=== PATIENT | male | born 1930 | race Caucasian/White ===

== ENCOUNTER 2016-11-11 06:57 | Day surgery (SDC) | payer MEDICARE, OTHER ==
[~2016-11-11] VITALS: Ht 185.4 cm; Wt 122.0 kg
[2016-11-11] VITALS (11 sets, daily range): BP systolic 120–146; BP diastolic 81–98
[~2016-11-11 06:57] MED LIST: ASCO500T20 PO; ASP325T PO; ASP325TEC PO; ASP81CT; BRIM5DRO12 OU; CA C1TAB26 PO; CHOL100011; CHOL100011 PO; CLOP75TA PO; CPR500T PO; FINA5TAB PO; FLUO20CA25 PO; FLUO20CA42; FLUO20TA28 PO; FNST5T PO; FURO40TA4 PO; FURO80TA3 PO; HYDR-757 PO; HYDR12.56; HYDR1TAB66 PO; INSU100V5 SC; INSULIN SQ; IPRA3AMP19 IH; LEVO500T69 PO; METF-380 PO; MTF500T; MTP25TSR; MTP25TSR PO; NTR.4SL SL; PNT40TEC PO; RAMI2.5C PO; RAMI5CAP PO; RMP5C PO; ROSU5TAB; ROSU5TAB PO; SITA100T PO; SPIR50TA27 PO; TAMS0.4C2 PO; TMSL.4C PO; TRAM-21 PO; [UNRECOGNIZED DRUG - OTHER] OU
[2016-11-11] MEDS ORDERED: LIDOCAINE 1% INJ 20 ML (XYLOCAINE) VIAL ONE (07:01)
--- OUTSIDE RECORDS SUMMARY | 2016-11-11 07:01 | XMS REPORT | Continuity of Care Document ---
Author Author [facility] Organization [facility] Address Unknown Phone Unavailable Care Team Providers Care Knife Glazer Name Role Phone ROXANNA LY MD PCP Insurance Providers Payer Name Policy Number Subscriber Name Relationship Wps Medicare [id number] Alexandra Wilkes 18 Self / Same As Patient Blue Cross [facility] Supp [id number] Alexandra Wilkes 18 Self / Same As Patient Advance Directives Directive Response Recorded Date/Time Advance Directives Yes 09/20/14 11:00am Health Care Power of Manufacturer Yes 09/20/14 11:00am Organ Donor No 09/20/14 11:00am Resuscitation Status Full Code 09/20/14 11:00am Problems No known problems or medical conditions. Medications Medication Dose Route Sig Days/Qty Instructions Order Date Discontinued Date Status Hydrochlorothiazide 02/12/10 01/07/11 Discontinued Rosuvastatin Calcium 02/12/10 01/07/11 Discontinued Fluoxetine HCl 02/12/10 01/07/11 Discontinued Metoprolol Succinate 02/12/10 01/07/11 Discontinued Aspirin 02/12/10 01/07/11 Discontinued Cholecalciferol 02/12/10 01/07/11 Discontinued Metformin HCl (Glucophage) 02/12/10 01/07/11 Discontinued Cholecalciferol 1,000 Unit PO DAILY 01/07/11 Active [Alphagan C.ie] 1 Drop OU TWICE A DAY One drop in 01/07/11 08/19/11 Discontinued Metformin HCl (Glucophage) 1,000 Mg PO TWICE A DAY WITH MEALS OF 01/07/11 08/26/12 Discontinued Metoprolol Succinate 12.5 Each PO DAILY 01/07/11 09/15/14 Discontinued Nitroglycerin 0.4 Mg SL NEEDED 01/07/11 Active Spironolactone 50 Mg PO DAILY 01/07/11 08/19/11 Discontinued Clopidogrel Bisulfate 75 Mg PO DAILY 01/07/11 Active Furosemide (Lasix) 1 Each PO DAILY 01/07/11 01/30/11 Discontinued Rosuvastatin Calcium 5 Mg PO DAILY 01/07/11 Active Rosuvastatin Calcium 1 Each PO DAILY 01/07/11 01/07/11 Discontinued Fluoxetine HCl (Prozac) 20 Mg PO DAILY 01/07/11 Active Ramipril 5 Mg PO DAILY 01/07/11 08/19/11 Discontinued Pantoprazole Sodium 1 Tab PO DAILY 01/07/11 08/19/11 Discontinued Hydrocodone Bit/Acetaminophen 2 Each PO PRN 01/15/11 08/19/11 Discontinued Tamsulosin HCl 0.4 Mg PO DAILY 30 Qty 01/17/11 08/19/11 Discontinued Finasteride 5 Mg PO DAILY 01/17/11 08/19/11 Discontinued Tamsulosin Hcl 0.4 Mg PO EVENINGS 01/24/11 01/27/11 Discontinued Furosemide (Lasix) 40 Mg PO DAILY 01/30/11 Active Ciprofloxacin 1 Tab PO TWICE A DAY 10 Qty 01/30/11 08/19/11 Discontinued Brimonidine Tartrate 1 Drop OU TWICE A DAY 08/19/11 Active Aspirin 0.5 Tab PO DAILY 08/19/11 03/31/14 Discontinued Sitagliptin Phosphate 1 Each PO DAILY 08/26/12 09/15/14 Discontinued Ramipril 5 Mg PO DAILY 08/26/12 09/15/14 Discontinued Albuterol Sulfate/Ipratropium 3 Ml IH Q 4 HOURS 1 Qty BY NEBULIZER FOR BREATHING 08/26/12 03/31/14 Discontinued Levofloxacin 1 Each PO DAILY 10 Qty 08/26/12 03/31/14 Discontinued Hydrocodone Bit/Acetaminophen 1 Ea PO EVERY 6 HOURS PRN MILD PAIN 14 Qty 03/28/14 09/15/14 Discontinued Insulin Detemir 22 Units SC TWICE A DAY 40 Qty TAKES 22 UNITS IN AM 03/31 Active Ascorbic Acid 500 Mg PO DAILY 09/15/14 Active Ramipril 2.5 Mg PO DAILY 09/15/14 Active Pantoprazole Sod 40 Mg PO DAILY 09/15/14 Active Tramadol Hcl 1 Tab PO EVERY 12 HOURS For Pain 20 Qty EVERY 12 HRS NEEDED FOR 09/20/14 Active Social History Social History Problem Response Recorded Date/Time Alcohol Use Denies Use 03/31/2014 8:58am Recreational Drug Use No 03/31/2014 8:58am Recent Foreign Travel No 09/20/2014 11:00am Sexually Transmitted Disease No 03/31/2014 8:58am Smoking Status Former Smoker 09/20/2014 11:00am Query Response Start Date Stop Date Smoking Status Former Smoker 10/26/1963 Hospital Discharge Instructions No hospital discharge instructions. Plan of Care No plan of care. Functional Status No functional status results. Allergies, Adverse Reactions, Alerts Allergen Type Severity Reaction Status Last Updated Penicillins ([id number]) Allergy Mild Active 03/24/09 Immunizations Name Given Type Date of Pneumonia Vaccine 07/26/11 Historical Date of Influenza Vaccine 08/21/14 Historical Vital Signs Acute Vital Signs Vital Response Date/Time Temperature (Fahrenheit) 97.8 degrees F (97.6 - 99.5) Temperature (Calculated Celsius) 36.22512 degrees C (36.4 - 37.5) Temperature Source Tympanic Pulse Rate (adult) 78 bpm (60 - 90) Respiratory Rate 20 bpm (12 - 24) O2 Sat by Pulse Oximetry 94 % (88 - 100) Blood Pressure 149/78 mm Hg Pain Pain Intensity 0 Height (Feet) 5 feet Height (Inches) 11.00 inches Height (Calculated Centimeters) 180.307063 cm Weight (Pounds) 265 pounds Weight (Calculated Grams) 178765.979 gm Weight (Calculated Kilograms) 120.061703 kilograms Height 5 ft 11 in Weight 265 lb Body Mass Index 37.0 kg/m^2 Results Laboratory Results Test Name Result Units Flags Reference Collection Date/Time Result Date/ Time Comments Glucometer 85 MG/DL 70-110 09/20/2014 12:06pm 09/20/2014 12:27pm Sodium Level 139 MMOL/L 135-145 09/15/2014 10:00am 09/15/2014 11:17am Potassium Level 4.7 MMOL/L 3.6-5.0 09/15/2014 10:00am 09/15/2014 11: 17am Chloride Level 107 MMOL/L 98-107 09/15/2014 10:00am 09/15/2014 11:17am Carbon Dioxide Level 21 MMOL/L 21-32 09/15/2014 10:00am 09/15/2014 11: 17am Blood Urea Nitrogen 16 MG/DL 7-18 09/15/2014 10:00am 09/15/2014 11: 17am Creatinine 1.18 MG/DL 0.60-1.30 09/15/2014 10:00am 09/15/2014 11:17am BUN/Creatinine Ratio 14 09/15/2014 10:00am 09/15/2014 11:17am Estimat Glomerular Filtration Rate 59 09/15/2014 10:00am 2013 11:17am GFR INTERPRETIVE DATA UNITS FOR ESTIMATED GFR (eGFR): mL/min/1.73 M2 REFERENCE RANGE FOR ESTIMATED GFR (eGFR) eGFR NORMAL eGFR >60 MODERATELY DECREASED eGFR 30-59 SEVERLY DECREASED eGFR 15-29 KIDNEY FAILURE <15 (OR DIALYSIS) Glucose Level 197 MG/DL H 70-105 09/15/2014 10:00am 09/15/2014 11:17am Calcium Level 9.5 MG/DL 8.5-10.1 09/15/2014 10:00am 09/15/2014 11:17am Procedures Procedure Status Date Provider(s) Tracing only of electrocardiogram completed 09/15/14 DENIZ VICTOR DO Encounters Encounter Location Date/Time Registered Surgical Day Care Via [facility] 09/20/14 11:02am Registered Clinic [facility] 09/15/14 9:40am
--- OUTSIDE RECORDS SUMMARY | 2016-11-11 07:01 | XMS REPORT | Continuity of Care Document ---
Author Author [facility] Organization [facility] Address Unknown Phone Unavailable Care Team Providers Care Drop Wirer Name Role Phone ROXANNA LY MD PCP Insurance Providers Payer Name Policy Number Subscriber Name Relationship Wps Medicare [id number] Alexandra Wilkes 18 Self / Same As Patient Blue Cross [facility] Supp [id number] Alexandra Wilkes 18 Self / Same As Patient Advance Directives Directive Response Recorded Date/Time Advance Directives Yes 09/20/14 11:00am Health Care Power of Bottom Filler Yes 09/20/14 11:00am Organ Donor No 09/20/14 [...] Type Severity Reaction Status Last Updated Penicillins ([id number]) Allergy Mild Active 03/24/09 Immunizations Name Given Type Date of Pneumonia Vaccine 07/26/11 Historical Date of Influenza Vaccine 08/21/14 Historical Vital Signs Acute Vital Signs Vital Response Date/Time Temperature (Fahrenheit) 97.8 degrees F (97.6 - 99.5) Temperature (Calculated Celsius) 36.09769 degrees C (36.4 - 37.5) Temperature Source Tympanic Pulse Rate (adult) 78 bpm (60 - 90) Respiratory Rate 20 bpm (12 - 24) O2 Sat by Pulse Oximetry 94 % (88 - 100) Blood Pressure 149/78 mm Hg Pain Pain Intensity 0 Height (Feet) 5 feet Height (Inches) 11.00 inches Height (Calculated Centimeters) 180.425170 cm Weight (Pounds) 265 pounds Weight (Calculated Grams) 713891.979 gm Weight (Calculated Kilograms) 120.471979 kilograms Height 5 ft 11 in Weight [...] Location Date/Time Registered Surgical Day Care Via [facility] 09/20/14 11:02am Registered Clinic Via [facility] 09/15/14 9:40am
[2016-11-11] MEDS ORDERED: NS IV 1000 ML 1,000 ML ONE (07:02)
[2016-11-11] MEDS ORDERED: HEParin (CATH LAB) 1,000 ML IV ONE ×2 (07:02→08:43)
[2016-11-11 07:45] LABS: MEAN PLATELET VOLUME 9.4 FL (7.4-10.4); RED BLOOD COUNT 4.65 10^6/uL (4.35-5.85); RED CELL DISTRIBUTION WIDTH 13.2 % (10.0-14.5); WHITE BLOOD COUNT 5.8 10^3/uL (4.3-11.0)
[2016-11-11] MEDS ORDERED: NS IV 1000 ML 1,000 ML IV SCH ×2 (07:45→09:27)
[2016-11-11 07:56] LABS: PROTHROMBIN TIME PATIENT 12.9 SEC (12.2-14.7)
[2016-11-11 08:08] LABS: ALANINE AMINOTRANSFERASE 18 U/L (0-55); ANION GAP 10 MMOL/L (5-14); ASPARTATE AMINO TRANSFERASE 17 U/L (5-34); BILIRUBIN,TOTAL 0.9 MG/DL (0.1-1.0); BLOOD UREA NITROGEN 17 MG/DL (7-18); BUN/CREATININE RATIO 15; CALCIUM 9.7 MG/DL (8.5-10.1); CARBON DIOXIDE 21 MMOL/L (21-32); CHLORIDE 106 MMOL/L (98-107); CHOLESTEROL 141 MG/DL (< 200); CREATININE SERUM 1.11 MG/DL (0.60-1.30); DIRECT LDL 93 MG/DL (1-129); GFR ESTIMATED > 60; GLUCOSE 165 MG/DL (70-105); POTASSIUM 4.4 MMOL/L (3.6-5.0); SODIUM 137 MMOL/L (135-145); TOTAL PROTEIN 6.4 G/DL (6.4-8.2); TRIGLYCERIDES 111 MG/DL (<150); VLDL CHOLESTEROL 22 MG/DL (5-40)
[2016-11-11] MEDS ORDERED: fentaNYL INJECTION 100 MCG/2 ML AMP ONE (08:21)
[2016-11-11] MEDS ORDERED: diphenhydrAMINE 50 MG/ML INJ (BENADRYL) ONE (08:21)
[2016-11-11] MEDS ORDERED: MIDAZOLAM 5 MG/5 ML (VERSED) VIAL ONE (08:21)
[2016-11-11] MEDS ORDERED: MELO7.5T46 PO (08:23)
--- NOTE | 2016-11-11 09:27 | Cardiac Procedure Note-CS/ASA ---
Pre-Procedure Note Pre-Op Procedure Note H&P Reviewed The H&P was reviewed, patient examined and no changes noted. Date H&P Reviewed: Nov 11, 2016 Time H&P Reviewed: 08:50 Conscious Sedation Pre-Proced Time Reviewed: 08:50 ASA Class: 3 Airway Mallampati Classification: (habematolel appropriate class) I. II. III, IV Lungs Heart ASA score ASA 1: a normal healthy patient ASA 2: a patient with a mild systemic disease (mid diabetes, controlled hypertension, obesity ASA 3: a patient with a severe systemic disease that limits activity (angina , COPD, prior Myocardial infarction) ASA 4: a patient with an incapacitating disease that is a constant threat to life (CHF, renal failure) ASA 5: a moribund patient not expected to survive 24 hrs. (ruptured aneurysm) ASA 6: a declared brain patient whose organs are being harvested. For emergent operations, add the letter E after the classification Grade 3 Sedation Plan: Analgesia, Amnesia, Plan communicated to team members, Discussed options with patient/fam, Discussed risks with patient/fam Note The patient is an appropriate candidate to undergo the planned procedure, sedation, and anesthesia. The patient immediately re-assessed prior to indication. DELLA NUR MD FACP [facility] Nov 11, 2016 09:26
[2016-11-11] MEDS ORDERED: PATIENT MAY USE OWN MEDS, ALL PO SCH (09:30)
[2016-11-11] MEDS ORDERED: ASPI-999 PO (09:30)
--- NOTE | 2016-11-11 09:32 | Discharge Inst-Post CATH ---
Discharge Inst-CATH Post Cardiac Cath D/C Inst Follow Up/Plan Follow up with Dr Pineda in 1-2 weeks Obtain blood work prior to f/u with Dr Pineda F/u with family physician as soon as possible for treatment of diabetes CARDIAC CATH DISCHARGE INSTRUCTIONS *Hold Metformin for 48 hours post heart cath. ACTIVITY * Go Home directly and rest. * Limit activity of the leg (or wrist if it was used) for 7 days including aerobics, swimming, jogging, bicycling, etc. * Restrict stair-climbing for 7 days if possible, if not, climb up with your non -cath leg, then bring together on the same step. * Avoid lifting, pushing, pulling or excessive movement of the affected extremity for 7 days. * Customary sexual activity may be resumed after 2 days-use caution not to use a position that strains or causes pain to the affected extremity. * No driving for 24 hours. * NO SMOKING. * Avoid straining for bowel movements for 7 days. * Gentle walking on level ground is allowed. * Returning to work will depend on the type of procedure and the results. Your doctor will discuss this with you. CALL YOUR DOCTOR FOR ANY OF THE FOLLOWING: *If bleeding from the puncture site occurs- Apply gentle pressure to site with clean cloth and call your doctor or EMS. * If a knot or lump forms under the skin, increases in size, or causes pain. * If bruising appears to be worsening or moving further down your leg instead of disappearing. * Temperature above 101 F. CARE OF YOUR GROIN INCISION; * Bruising or purple discoloration of the skin near the puncture site is common. * You may shower only, no bathtub bathing for 5 days. Be careful to avoid slipping as your leg may feel stiff. * If a closure device was used on your femoral artery, please see the attached guide regarding care of the device and your leg. * REMOVE the dressing from your groin the next day after your procedure in the shower. CARE OF YOUR WRIST INCISION; * Bruising or purple discoloration of the skin near the puncture site is common. * You may shower. * DO NOT submerge wrist. * Remove dressing in 24 hours. DELLA PINEDA MD FACP [facility] Nov 11, 2016 09:32
[2016-11-11] MEDS ORDERED: PRAV20TA PO (09:38)
--- NOTE | 2016-11-11 09:38 | Discharge Inst-Cardiology ---
Discharge Inst-Cardiac Discharge Medications New Medications: Aspirin (Aspirin) 81 Mg Tab.chew 81 MG PO DAILY #90 Ref 5 TAB Pravastatin Sodium (Pravachol) 20 Mg Tablet 20 MG PO DAILY #90 Ref 3 TAB Continued Medications: Ascorbic Acid (Vitamin C 500 Mg) 500 Mg Tablet 500 MG PO DAILY TAB Brimonidine Tartrate (Alphagan P) 10 Ml Drops 1 DROP OU BID one drop both eyes bid Cholecalciferol (Vitamin D3) 1,000 Unit Capsule 1000 UNIT PO DAILY Fluoxetine HCl (Fluoxetine HCl) 20 Mg Tablet 40 MG PO DAILY TAB Furosemide (Furosemide) 40 Mg Tablet 40 MG PO DAILY Meloxicam (Meloxicam) 7.5 Mg Tablet 7.5 MG PO BID TAB Nitroglycerin (Nitrostat) 0.4 Mg Subl 0.4 MG SL PRN Ramipril (Ramipril) 2.5 Mg Capsule 2.5 MG PO DAILY DELLA BROOKS MD FACP [facility] Nov 11, 2016 09:38
--- NOTE | 2016-11-11 10:33 | CARDIAC CATHETERIZATION ---
PROCEDURE PHYSICIAN: DELLA NUR DATE OF PROCEDURE: 11/11/2016 Jeremiah John is an 86-year-old man who has known coronary artery disease and ischemic cardiomyopathy. He has been experiencing increasing symptoms of chest discomfort and exertional shortness of breath suggestive of recurrent angina pectoris. Cardiac catheterization was carried out today after having obtained an informed consent. PROCEDURE: The right groin was prepared and draped in the usual sterile fashion. 1% lidocaine was used for local anesthesia. Modified Seldinger technique was used to advance a 5-Anguillan sheath in right femoral artery. We were not able to engage the left coronary artery with the 5-Anguillan JL4 or JL3.5 catheters. We exchanged the sheath over a wire for a 6-Anguillan sheath. We used a 6 Anguillan JL4 catheter for left coronary angiography and 6-Anguillan JR4 catheter for the right coronary angiography. We used a 5-Anguillan pigtail catheter for left heart catheterization and left ventricular angiography. The pigtail catheter was pulled back and then removed. Angiography of the right femoral artery was carried out through the sheath. Mynx was used to achieve hemostasis. He tolerated the procedure well. HEMODYNAMICS: Left ventricular end diastolic pressure following coronary angiography was 11 mmHg. There was no significant pressure gradient on pullback across the aortic valve. Ascending aortic pressure was 144/73 with a mean of 102 mmHg. LEFT VENTRICULAR ANGIOGRAPHY: Left ventricular angiography was carried out in the right anterior oblique projection. There is anterolateral apical hypokinesis. Left ventricular ejection fraction of 40 to 45%. There did not appear to be significant mitral regurgitation. CORONARY ANGIOGRAPHY: Diffuse coronary calcification is present. The left main coronary does not exhibit significant obstructive disease. The left anterior descending artery has diffuse moderate disease. The left circumflex artery has 60% ostial stenosis and the rest of the vessel has diffuse, mild disease. Right coronary artery has diffuse, moderate disease. There are patent stents in the proximal mid and distal portions of the right coronary artery that do not exhibit any significant stent restenosis. CONCLUSIONS: 1. Coronary artery disease, moderate. There are patent stents in the right coronary artery that are known to be Promus 3 x 12 in the proximal, proximal 3 x 12 in the mid and Promus 2.5 x 23 in the distal right coronary artery. 2. Ischemic cardiomyopathy with left ventricular ejection fraction 40 to 45%. 3. Normal left ventricular end-diastolic pressure. 4. No significant mitral regurgitation. DISCUSSION AND RECOMMENDATIONS: Based on the results of this study, it appears appropriate to continue a conservative treatment approach. Close outpatient follow-up is advised. Job ID: [id number] Dictated Date: 11/11/2016 09:24:16 Cordage Sales Representative Date: 11/11/2016 10:19:50 / sarah BATISTA
--- NOTE | 2016-11-11 13:23 | Diagnostic Imaging Report ---
INDICATION: Dyspnea following heart catheterization this morning. DISCUSSION: Two views of the chest were obtained, comparison 08/26/2012. The lungs are hyperinflated consistent with underlying COPD. No focal consolidation, pleural fluid, or pneumothorax. Left-sided pacemaker shows interval revision though is otherwise unremarkable. Stable normal heart size. IMPRESSION: 1. No acute cardiopulmonary process. Dictated by: Dictated on workstation # [id number]
== END 2016-11-11 14:15 | disposition home or self-care (01) ==
LOC: CATH 06:57 → SURG 09:47 → CATH 14:15
PROVIDERS: ATTEND Internal Medicine Cardiovascular Disease
DX: I25.10 Atherosclerotic heart disease of native coronary artery without angina pectoris (principal); I25.84 Coronary atherosclerosis due to calcified coronary lesion; I25.5 Ischemic cardiomyopathy; R07.89 Other chest pain; R06.02 Shortness of breath; I50.22 Chronic systolic (congestive) heart failure; I10 Essential (primary) hypertension; E78.5 Hyperlipidemia, unspecified; E66.9 Obesity, unspecified; R73.09 Other abnormal glucose; I49.5 Sick sinus syndrome; Z95.5 Presence of coronary angioplasty implant and graft; Z95.810 Presence of automatic (implantable) cardiac defibrillator; Z79.899 Other long term (current) drug therapy; Z68.35 Body mass index [BMI] 35.0-35.9, adult
CPT/HCPCS: 36415; 71020; 80053; 80061; 82962; 85027; 85610; 85730; 87081; 93458

== ENCOUNTER → 2016-11-18 | Outpatient (CLI) | payer MEDICARE, OTHER ==
[~2016-11-18] MED LIST changes: +ASPI-999 PO; +MELO7.5T46 PO; +PRAV20TA PO
--- OUTSIDE RECORDS SUMMARY | 2016-11-18 10:21 | XMS REPORT | Continuity of Care Document ---
Author Author [facility] Organization [facility] Address Unknown Phone Unavailable Care Team Providers Care Cold Meat Cook Name Role Phone ROXANNA LY MD PCP Insurance Providers Payer Name Policy Number Subscriber Name Relationship Wps Medicare [id number] Alexandra Wilkes 18 Self / Same As Patient Blue Cross [facility] Supp [id number] Alexandra Wilkes 17 Self / Same As Patient Advance Directives Directive Response Recorded Date/Time Advance Directives Yes 09/20/14 11:00am Health Care Power of Steward/Stewardess Bath Yes 09/20/14 11:00am Organ Donor No 09/20/14 [...] Type Severity Reaction Status Last Updated Penicillins ([id number]) Allergy Mild Active 03/24/09 Immunizations Name Given Type Date of Pneumonia Vaccine 07/26/11 Historical Date of Influenza Vaccine 08/21/14 Historical Vital Signs Acute Vital Signs Vital Response Date/Time Temperature (Fahrenheit) 97.8 degrees F (97.6 - 99.5) Temperature (Calculated Celsius) 36.96755 degrees C (36.4 - 37.5) Temperature Source Tympanic Pulse Rate (adult) 78 bpm (60 - 90) Respiratory Rate 20 bpm (12 - 24) O2 Sat by Pulse Oximetry 94 % (88 - 100) Blood Pressure 149/78 mm Hg Pain Pain Intensity 0 Height (Feet) 5 feet Height (Inches) 11.00 inches Height (Calculated Centimeters) 180.601793 cm Weight (Pounds) 265 pounds Weight (Calculated Grams) 539834.979 gm Weight (Calculated Kilograms) 120.142503 kilograms Height 5 ft 11 in Weight [...] Location Date/Time Registered Surgical Day Care Via [facility] 09/20/14 11:02am Registered Clinic [facility] 09/15/14 9:40am
[2016-11-18 10:49] LABS: ALANINE AMINOTRANSFERASE 16 U/L (0-55); ALBUMIN 3.8 G/DL (3.2-4.5); ANION GAP 7 MMOL/L (5-14); ASPARTATE AMINO TRANSFERASE 16 U/L (5-34); BILIRUBIN,TOTAL 0.8 MG/DL (0.1-1.0); BLOOD UREA NITROGEN 11 MG/DL (7-18); BUN/CREATININE RATIO 10; CALCIUM 9.5 MG/DL (8.5-10.1); CARBON DIOXIDE 26 MMOL/L (21-32); CHLORIDE 105 MMOL/L (98-107); CHOLESTEROL 137 MG/DL (< 200); CREATININE SERUM 1.08 MG/DL (0.60-1.30); DIRECT LDL 89 MG/DL (1-129); GFR ESTIMATED > 60; GLUCOSE 176 MG/DL (70-105); POTASSIUM 4.3 MMOL/L (3.6-5.0); SODIUM 138 MMOL/L (135-145); TRIGLYCERIDES 125 MG/DL (<150); VLDL CHOLESTEROL 25 MG/DL (5-40)
== END ==
LOC: LAB 10:16
PROVIDERS: ATTEND Internal Medicine Cardiovascular Disease
DX: E78.5 Hyperlipidemia, unspecified (principal); I25.5 Ischemic cardiomyopathy; I25.10 Atherosclerotic heart disease of native coronary artery without angina pectoris
CPT/HCPCS: 36415; 80053; 80061

== ENCOUNTER → 2016-11-25 | Outpatient (CLI) | payer MEDICARE, OTHER ==
--- OUTSIDE RECORDS SUMMARY | 2016-11-25 09:35 | XMS REPORT | Continuity of Care Document ---
Author Author [facility] Organization [facility] Address Unknown Phone Unavailable Care Team Providers Care Spray Drier Operator Name Role Phone ROXANNA LY MD PCP Insurance Providers Payer Name Policy Number Subscriber Name Relationship Wps Medicare [id number] Alexandra Wilkes 18 Self / Same As Patient Blue Cross [facility] Supp [id number] Alexandra Wilkes 17 Self / Same As Patient Advance Directives Directive Response Recorded Date/Time Advance Directives Yes 09/20/14 11:00am Health Care Power of Manager Registration Yes 09/20/14 11:00am Organ Donor No 09/20/14 [...] Type Severity Reaction Status Last Updated Penicillins ([id number]) Allergy Mild Active 03/24/09 Immunizations Name Given Type Date of Pneumonia Vaccine 07/26/11 Historical Date of Influenza Vaccine 08/21/14 Historical Vital Signs Acute Vital Signs Vital Response Date/Time Temperature (Fahrenheit) 97.8 degrees F (97.6 - 99.5) Temperature (Calculated Celsius) 36.59676 degrees C (36.4 - 37.5) Temperature Source Tympanic Pulse Rate (adult) 78 bpm (60 - 90) Respiratory Rate 20 bpm (12 - 24) O2 Sat by Pulse Oximetry 94 % (88 - 100) Blood Pressure 149/78 mm Hg Pain Pain Intensity 0 Height (Feet) 5 feet Height (Inches) 11.00 inches Height (Calculated Centimeters) 180.060717 cm Weight (Pounds) 265 pounds Weight (Calculated Grams) 310950.979 gm Weight (Calculated Kilograms) 120.827360 kilograms Height 5 ft 11 in Weight [...] Location Date/Time Registered Surgical Day Care Via [facility] 09/20/14 11:02am Registered Clinic [facility] 09/15/14 9:40am
--- NOTE | 2016-11-25 10:29 | Diagnostic Imaging Report ---
EXAMINATION: Right lower extremity duplex venous ultrasound. TECHNIQUE: DVT protocol. Multiple sonographic images with color Doppler and waveform interrogation were performed of the right lower extremity veins with compression and augmentation maneuvers. INDICATION: Right leg swelling. FINDINGS: The right lower extremity veins from the groin to below the knee veins were examined with normal color-flow, compressibility and normal waveform demonstrated. The great saphenous vein is patent. IMPRESSION: No evidence of DVT in the right lower extremity. Dictated by: Dictated on workstation # [id number]
== END ==
LOC: RAD 09:31
PROVIDERS: ATTEND Internal Medicine
DX: R22.41 Localized swelling, mass and lump, right lower limb (principal); R06.02 Shortness of breath

== ENCOUNTER → 2016-12-01 | Outpatient (CLI) | payer MEDICARE, OTHER ==
--- OUTSIDE RECORDS SUMMARY | 2016-12-01 13:57 | XMS REPORT | Continuity of Care Document ---
Author Author [facility] Organization [facility] Address Unknown Phone Unavailable Care Team Providers Care Astronautical Engineer Name Role Phone ROXANNA LY MD PCP Insurance Providers Payer Name Policy Number Subscriber Name Relationship Wps Medicare [id number] Alexandra Wilkes 17 Self / Same As Patient Blue Cross [facility] Supp [id number] Alexandra Wilkes 17 Self / Same As Patient Advance Directives Directive Response Recorded Date/Time Advance Directives Yes 09/20/14 11:00am Health Care Power of Ice Cream Freezer Helper Yes 09/20/14 11:00am Organ Donor No 09/20/14 [...] Type Severity Reaction Status Last Updated Penicillins ([id number]) Allergy Mild Active 03/24/09 Immunizations Name Given Type Date of Pneumonia Vaccine 07/26/11 Historical Date of Influenza Vaccine 08/21/14 Historical Vital Signs Acute Vital Signs Vital Response Date/Time Temperature (Fahrenheit) 97.8 degrees F (97.6 - 99.5) Temperature (Calculated Celsius) 36.59299 degrees C (36.4 - 37.5) Temperature Source Tympanic Pulse Rate (adult) 78 bpm (60 - 90) Respiratory Rate 20 bpm (12 - 24) O2 Sat by Pulse Oximetry 94 % (88 - 100) Blood Pressure 149/78 mm Hg Pain Pain Intensity 0 Height (Feet) 5 feet Height (Inches) 11.00 inches Height (Calculated Centimeters) 180.366265 cm Weight (Pounds) 265 pounds Weight (Calculated Grams) 083504.979 gm Weight (Calculated Kilograms) 120.644345 kilograms Height 5 ft 11 in Weight [...] Surgical Day Care [facility] 09/20/14 11:02am Registered Clinic [facility] 09/15/14 9:40am
== END ==
LOC: RT 13:54
PROVIDERS: ATTEND Internal Medicine Cardiovascular Disease
DX: I25.10 Atherosclerotic heart disease of native coronary artery without angina pectoris (principal); I10 Essential (primary) hypertension; I25.5 Ischemic cardiomyopathy; I48.92 Unspecified atrial flutter; I49.5 Sick sinus syndrome; E11.9 Type 2 diabetes mellitus without complications; E78.4 Other hyperlipidemia
CPT/HCPCS: 94060; 94726; 94729

== ENCOUNTER → 2016-12-10 | Outpatient (CLI) | payer MEDICARE, OTHER ==
--- OUTSIDE RECORDS SUMMARY | 2016-12-10 14:02 | XMS REPORT | Continuity of Care Document ---
Author Author [facility] Organization [facility] Address Unknown Phone Unavailable Care Team Providers Care Fish Protector Name Role Phone ROXANNA LY MD PCP Insurance Providers Payer Name Policy Number Subscriber Name Relationship Wps Medicare [id number] Alexandra Wilkes 17 Self / Same As Patient Blue Cross [facility] Supp [id number] Alexandra Wilkes 17 Self / Same As Patient Advance Directives Directive Response Recorded Date/Time Advance Directives Yes 09/20/14 11:00am Health Care Power of Junior Engineer Yes 09/20/14 11:00am Organ Donor No 09/20/14 [...] Type Severity Reaction Status Last Updated Penicillins ([id number]) Allergy Mild Active 03/24/09 Immunizations Name Given Type Date of Pneumonia Vaccine 07/26/11 Historical Date of Influenza Vaccine 08/21/14 Historical Vital Signs Acute Vital Signs Vital Response Date/Time Temperature (Fahrenheit) 97.8 degrees F (97.6 - 99.5) Temperature (Calculated Celsius) 36.09828 degrees C (36.4 - 37.5) Temperature Source Tympanic Pulse Rate (adult) 78 bpm (60 - 90) Respiratory Rate 20 bpm (12 - 24) O2 Sat by Pulse Oximetry 94 % (88 - 100) Blood Pressure 149/78 mm Hg Pain Pain Intensity 0 Height (Feet) 5 feet Height (Inches) 11.00 inches Height (Calculated Centimeters) 180.616457 cm Weight (Pounds) 265 pounds Weight (Calculated Grams) 245034.979 gm Weight (Calculated Kilograms) 120.353828 kilograms Height 5 ft 11 in Weight [...] Location Date/Time Registered Surgical Day Care [facility] 09/20/14 11:02am Registered Clinic [facility] 09/15/14 9:40am
--- NOTE | 2016-12-10 16:04 | Diagnostic Imaging Report ---
Scrotal ultrasound. INDICATION: Left scrotal pain. FINDINGS: The right testicle is 4.5 x 2.8 x 3 cm. The left testicle is 4.8 x 2.3 x 2.9 cm. No intratesticular mass. There is an epididymal cyst on the left side measuring 1.3 cm with simple appearance. There is a moderate hydrocele seen on the right side. Above the testicle on the left side there is a hyperechoic area that appears to accentuate with Valsalva suggestive of a left inguinal hernia with fat extension into the scrotum. IMPRESSION: 1. Moderate right hydrocele. 2. Suggestion of fat-containing left inguinal hernia with mild extension into the scrotum. Correlate clinically and with CT pelvis if needed. Dictated by: Dictated on workstation # [id number]
== END ==
LOC: RAD 13:59
PROVIDERS: ATTEND Urology
DX: N43.3 Hydrocele, unspecified (principal); N45.1 Epididymitis
CPT/HCPCS: 76870

== ENCOUNTER 2017-02-25 14:15 | Outpatient (RCR) | payer MEDICARE, OTHER | END 2017-03-03 13:55 | disposition home or self-care (01) | PROVIDERS: ATTEND Orthopaedic Surgery | DX: M25.551 Pain in right hip (principal); M25.552 Pain in left hip; M54.5 Low back pain ==

== ENCOUNTER 2017-03-20 05:43 | Outpatient (CLI) | payer OTHER ==
[~2017-03-20] VITALS: Ht 177.8 cm; Wt 113.4 kg
[2017-03-20 10:10] VITALS: BP 111/60
[2017-03-20] MEDS ORDERED: INSU100I29 SQ (10:25)
[2017-03-20] MEDS ORDERED: ASPI-586 PO (10:25)
[2017-03-20] MEDS ORDERED: PRAV20TA PO (10:25)
[2017-03-20 10:49] LABS: BASOPHILS % (AUTO) 1 % (0-10); EOSINOPHILS # (AUTO) 0.1 10^3/uL (0.0-0.3); EOSINOPHILS % (AUTO) 1 % (0-10); LYMPHOCYTES # (AUTO) 1.1 X 10^3 (1.0-4.0); LYMPHOCYTES % (AUTO) 20 % (12-44); MEAN CORPUSCULAR HEMOGLOBIN 32 PG (25-34); MEAN CORPUSCULAR HGB CONC 33 G/DL (32-36); MEAN CORPUSCULAR VOLUME 95 FL (80-99); MEAN PLATELET VOLUME 9.4 FL (7.4-10.4); MONOCYTES # (AUTO) 0.5 X 10^3 (0.0-1.0); MONOCYTES % (AUTO) 8 % (0-12); NEUTROPHILS # (AUTO) 4.1 X 10^3 (1.8-7.8); NEUTROPHILS % (AUTO) 71 % (42-75); PLATELET COUNT 155 10^3/uL (130-400); RED BLOOD COUNT 4.45 10^6/uL (4.35-5.85); RED CELL DISTRIBUTION WIDTH 13.1 % (10.0-14.5); WHITE BLOOD COUNT 5.9 10^3/uL (4.3-11.0)
[2017-03-20 11:09] LABS: CALCIUM 9.5 MG/DL (8.5-10.1); CREATININE SERUM 1.17 MG/DL (0.60-1.30); POTASSIUM 4.1 MMOL/L (3.6-5.0)
== END 2017-03-20 10:30 | disposition home or self-care (01) ==
LOC: PREOP 05:43
PROVIDERS: ATTEND Surgery Pediatric Surgery
DX: Z01.812 Encounter for preprocedural laboratory examination (principal); Z11.2 Encounter for screening for other bacterial diseases; K40.90 Unilateral inguinal hernia, without obstruction or gangrene, not specified as recurrent
CPT/HCPCS: 36415; 80048; 85025; 87081

== ENCOUNTER 2017-03-26 08:46 | Day surgery (SDC) | payer OTHER ==
[~2017-03-26] VITALS: Ht 177.8 cm; Wt 113.4 kg
[2017-03-26] VITALS (8 sets, daily range): BP systolic 116–159; BP diastolic 61–92
[~2017-03-26 08:46] MED LIST changes: +ASPI-586 PO; +INSU100I29 SQ
[2017-03-26] MEDS ORDERED: MIDAZOLAM 2 MG/2 ML (VERSED) VIAL IV ONE (09:15)
[2017-03-26] MEDS ORDERED: NS (IVPB) 50 ML ONE (09:20)
[2017-03-26] MEDS ORDERED: CLINDAMYCIN 600 MG/4ML (CLEOCIN) VIAL ONE (09:20)
[2017-03-26] MEDS: LACTATED RINGERS 1,000 ML IV PRN ×2 (09:32→12:57)
[2017-03-26] MEDS ORDERED: CLINDAMYCIN 600 MG/NS 50 ML IVPB IV ONE ×2 (09:45)
--- NOTE | 2017-03-26 10:04 | Progress Note-Pre Operative ---
Pre-Operative Progress Note H&P Reviewed The H&P was reviewed, patient examined and no changes noted. 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
--- NOTE | 2017-03-26 11:04 | Progress Note-Pre Operative ---
Pre-Operative Progress Note H&P Reviewed The H&P was reviewed, patient examined and no changes noted. Date H&P Reviewed: Mar 26, 2017 Time H&P Reviewed: 10:02 Pre-Operative Diagnosis: symptomatic left inguinal hernia KATHRINE SMITH MD Mar 26, 2017 11:04 am
[2017-03-26] MEDS ORDERED: BUP/EPI 0.5% 1:200,000 (SENSORCAINE) 30 ML VIAL ONE (11:32)
[2017-03-26] MEDS ORDERED: MIDAZOLAM 2 MG/2 ML (VERSED) VIAL ONE (12:01)
[2017-03-26] MEDS ORDERED: LIDOCAINE PF 2% 5 ML (XYLOCAINE) VIAL ONE ×2 (12:01→12:52)
[2017-03-26] MEDS ORDERED: proPOfol 200 MG/20 ML (DIPRIVAN) VIAL IV ONE ×2 (12:01→12:52)
[2017-03-26] MEDS ORDERED: fentaNYL INJECTION 100 MCG/2 ML AMP ONE ×2 (12:02→14:03)
[2017-03-26] MEDS ORDERED: ROCURONIUM 50 MG/5 ML (ZEMURON) VIAL IV ONE (12:52)
[2017-03-26] MEDS ORDERED: ONDANSETRON 4 MG/2 ML (SDV) Z0FRAN ONE (12:52)
[2017-03-26] MEDS ORDERED: LACTATED RINGERS 2,000 ML IV ONE (12:52)
--- NOTE | 2017-03-26 13:09 | Progress Note-Post Operative ---
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
[2017-03-26] MEDS ORDERED: meTOprolol 5 MG/5 ML (LOPRESSOR) VIAL ONE ×2 (14:03→14:34)
--- NOTE | 2017-03-26 14:18 | Progress Note-Post Operative ---
Post-Operative Progess Note Surgeon (s)/Flight Communications Specialist (s) Surgeon KATHRINE SMITH MD Flight Communications Specialist: elma granados PSYCHOMETRIST Pre-Operative Diagnosis symptomatic left inguinal hernia Post-Operative Diagnosis symptomatic left direct inguinal hernia Procedure & Operative Findings Date of Procedure 03/26/17 Procedure Performed/Findings laparoscopic left inguinal hernia repair with mesh. Anesthesia Type GET Estimated Blood Loss Estimated blood loss (mL): minimal Specimens/Packing Specimens Removed none KATHRINE SMITH MD Mar 26, 2017 2:18 pm
[2017-03-26] MEDS ORDERED: morphine INJ 10 MG/ML 1ML (SYR OR VIAL) ONE (14:21)
[2017-03-26] MEDS ORDERED: GLYCOPYRROLATE 0.2 MG/ML (ROBINUL) 2 ML VIAL ONE (14:22)
[2017-03-26] MEDS ORDERED: NEOSTIGMINE (BLOXIVERZ ) 1 MG/1ML 10 ML VIAL ONE (14:22)
[2017-03-26] MEDS ORDERED: SEVOFLURANE (ULTANE) 15 ML INHAL SOLN ONE ×3 (14:22→14:28)
[2017-03-26] MEDS ORDERED: morphine INJ 10 MG/ML 1ML (SYR OR VIAL) IVP PRN ×2 (14:30→15:00)
[2017-03-26] MEDS ORDERED: ACETAMINOPHEN 325 MG TABLET/CAPLET (TYLENOL) PO PRN (14:30)
[2017-03-26] MEDS ORDERED: HYDROcodone/APAP 5 MG/325 MG (LORTAB) TAB PO ONE (14:30)
[2017-03-26] MEDS ORDERED: ONDANSETRON 4 MG/2 ML (SDV) Z0FRAN IVP PRN ×2 (14:30→15:00)
[2017-03-26] MEDS ORDERED: HYDR-3730 PO (14:41)
--- NOTE | 2017-03-26 14:41 | Discharge Inst-Surgical ---
D/C Lap Instructions-SARAH New, Converted, or Re-Newed RX: RX on Chart Follow Up Appt in 2 weeks Activity as tolerated No driving for 24 hours No driving while on pain medications Incentive Spirometry use every 2 hours while awake Regular Diet Symptoms to Report: Fever over 101 degree F, Nausea/Vomiting Infection Signs and Symptoms to report: Increased redness, Foul odor of wound, Increased drainage Bathing instructions: May shower Operative Area Clean/Dry; Keep incision clean/dry If any problems/questions: Contact your physician or go to Emergency Room KATRHINE SMIHT MD Mar 26, 2017 2:41 pm
[2017-03-26] MEDS ORDERED: hydrALAZINE (APESOLINE) 20 MG/ML VIAL ONE (14:47)
[2017-03-26] MEDS ORDERED: fentaNYL INJECTION 100 MCG/2 ML AMP IVP PRN (15:00)
[2017-03-26] MEDS ORDERED: hydrALAZINE (APESOLINE) 20 MG/ML VIAL IV ONE (15:15)
[2017-03-26] MEDS ORDERED: FUROSEMIDE 40 MG/4 ML INJ (LASIX) ONE (15:15)
[2017-03-26] MEDS: NS IV 1000 ML 1,000 ML IV SCH (18:00)
[2017-03-26] MEDS ORDERED: inSUlin (REGULAR) HUMAN 1 UNIT/0.01 ML (CHARGE PER UNIT) SC SCH (18:00)
[2017-03-26] MEDS: HYDROcodone/APAP 7.5 MG/325 MG (LORTAB, LORCET PLUS) TABLET PO PRN (19:48)
[2017-03-26] MEDS: inSUlin (REGULAR) HUMAN 1 UNIT/0.01 ML (CHARGE PER UNIT) SC SCH (20:33)
--- NOTE | 2017-03-26 21:17 | OPERATIVE REPORT ---
DATE OF SERVICE: 03/26/2017 ATTENDING PHYSICIAN: Dr. Vidal. PREOPERATIVE DIAGNOSIS: Symptomatic reducible left inguinal hernia. POSTOPERATIVE DIAGNOSIS: Left indirect inguinal hernia. PROCEDURE PERFORMED: Laparoscopic left inguinal hernia repair with mesh. SURGEON: Dr. Jauregui ELECTRONIC SCALE SUBASSEMBLER: Isrrael Ward APRN. ANESTHESIA: General endotracheal. ESTIMATED BLOOD LOSS: Minimal. FINDINGS: Left indirect inguinal hernia with cord lipoma and omentum within the hernia sac. No right inguinal hernia component. DISPOSITION: The patient tolerated the procedure well. INDICATIONS: The patient is an 87-year-old male with a symptomatic testicular mass which has been bothering him for greater than 6 months. He was diagnosed with chronic epididymal cryptorchidism and orchialgia. He was scheduled to undergo a left orchiectomy; however, he was found to have a left inguinal hernia. He was seen in the office and was found to have a left inguinal hernia, which was reducible, however, tender to palpation. We planned surgery in conjunction with urology to have both procedures done under one anesthesia. DESCRIPTION OF PROCEDURE: After Dr. Pearson performed scrotal left orchiectomy, we then proceeded with our portion of the procedure. The abdomen was prepped and draped in standard surgical fashion. The 0.5% Marcaine with epinephrine was then used to anesthetize the overlying skin in the infraumbilical rim. [place]ym[place]-shaped skin incision was then made using a 15 blade. A sharp towel clamp was used to retract the abdominal wall superiorly, and a Veress needle inserted with a low opening pressure of 0 mmHg. The Veress needle removed, and a 5 mm Xcel trocar placed, followed by a 5 mm 45 degree angle laparoscope visualizing the peritoneal cavity. A 4 quadrant abdominal exploration was performed. There was no right inguinal hernia component. There was a left indirect inguinal hernia identified with preperitoneal fat as well as omentum within the hernia sac. After dissection, a cord lipoma was also identified. We then proceeded to place bilateral 5 mm ports under direct visualization after the skin and peritoneal lining were anesthetized using 0.5% Marcaine with epinephrine and a transverse skin incision made using a 15 blade. The patient was then placed in Trendelenburg position. We then proceeded to open the peritoneal lining laterally using the Sonicision. We proceeded more laterally towards the conjoint tendon and inguinal ligament. We then proceeded medially toward John's ligament. We then proceeded with our inferior dissection encompassing the entire hernia sac as well as the inguinal contents, which were already excised through the orchiectomy with visualization of good hemostasis. A medium sized 3D Max polypropylene mesh was then placed through the 10 mm port site. The mesh was then tacked to John's ligament medially and to the conjoint tendon and inguinal ligament laterally. The peritoneal lining was then placed entirely back over the mesh and a few tacks placed to hold it in place. Good hemostasis was observed. The 10 mm port site fascia and peritoneum were then closed under direct visualization using a Obi-Margarita device and 0 Vicryl suture. The abdomen was desufflated and remaining ports removed. All skin incisions were closed using 4-0 Monocryl running subcuticular sutures. Wounds were then cleaned and covered with Dermabond. The patient tolerated the procedure well. We will start IV and oral pain medication as well as a clear liquid diet and advanced an 1800 calorie ADA diet. We will also admit him for observation due to his history of atrial fibrillation, coronary artery disease as well as diabetes and start him on a sliding scale insulin. We will also proceed with continued IV pain as well as nausea medication. Job ID: [id number] DocumentID: [id number] Dictated Date: 03/26/2017 14:40:20 Organ Tuner Electronic Date: 03/26/2017 21:16:30 Dictated By: KATHRINE JAUREGUI MD
[2017-03-27] VITALS (7 sets, daily range): BP systolic 111–141; BP diastolic 64–75
[2017-03-27] MEDS: HYDROcodone/APAP 7.5 MG/325 MG (LORTAB, LORCET PLUS) TABLET PO PRN (00:01)
[2017-03-27] MEDS: inSUlin (REGULAR) HUMAN 1 UNIT/0.01 ML (CHARGE PER UNIT) SC SCH ×2 (06:02→11:39)
[2017-03-27] MEDS: NS IV 1000 ML 1,000 ML IV SCH (06:28)
--- NOTE | 2017-03-27 08:43 | Progress Note-Urology ---
Progress Note-Urology Progress Notes/Assess & Plan Progress/Assessment & Plan doing well, no complaints, no pain, minimal drainage, plan DC drain and patient Final Diagnosis CHRONIC LEFT EPIDIDYMOORCHITIS FEDERICO JON MD Mar 27, 2017 8:43 am
[2017-03-27] MEDS ORDERED: PANTOPRAZOLE 40 MG/10 ML (PROTONIX) VIAL IV SCH (09:00)
--- NOTE | 2017-03-27 09:42 | OPERATIVE REPORT ---
DATE OF SERVICE: 03/26/2017 PREOPERATIVE DIAGNOSIS: Chronic ___ with chronic pain. POSTOPERATIVE DIAGNOSIS: Chronic ___ with chronic pain. OPERATION PERFORMED: Left orchiectomy. SURGEON: Dr. Stanley Jon ANESTHESIA: General. COMPLICATIONS: None. DESCRIPTION OF PROCEDURE: Under satisfactory general anesthesia, the patient in supine position, the genitalia, abdomen and thigh were prepped and draped in usual sterile fashion separately scrotally and then abdominally for the laparoscopic procedure of Dr. Jauregui. An incision was made in the medial aspect of the scrotum and carried through the left scrotal compartment. The appendages were delivered in the wound. There were some chronic adhesions that were released. There was quite a bit of vascularity around this ____ epididymis. I went ahead dissected the spermatic cord and cut it between several ligatures and suture ligatures using 0 chromic to secure hemostasis complete. Hemostasis was indeed complete. There was no bleeding. I elected to leave a drain since the patient is spending the night for observation so I inserted a [place] drain draining the scrotum brought through a separate stab wound in the bottom of the scrotum, secured in position with 2-0 chromic cat gut. The scrotum was closed in 2 layers. The dartos with a running 2-0 chromic catgut and the skin was interrupted with 4-0 Vicryl. Fluff, scrotal support and dressing was applied. The patient tolerated the procedure and anesthesia very well with an estimated blood loss negligible and neither instrument counts correct x 2, and Dr. Jauregui proceeded with his surgery that he will dictate. Job ID: [id number] DocumentID: [id number] Dictated Date: 03/26/2017 13:12:08 Ems Educator Date: 03/26/2017 19:49:24 Dictated By: STANLEY JON MD
--- NOTE | 2017-03-27 12:21 | Consultation-Hospitalist ---
HPI History of Present Illness: HPI/Chief Complaint Mr. López is an 87-year-old white male with known hypertension and coronary artery disease who was well-known to me. He underwent left inguinal laparoscopic hernia repair with mesh and left orchiectomy for chronic pain with findings compatible with suspected chronic epididymitis and secondary orchitis. His surgery was uneventful but he did develop hypertension and the recovery room apparently where he received several doses of hydralazine 20 mg at least 1 dose of IV metoprolol. He otherwise did not appear to be in acute distress and also received some pain medication. He denied any problems with chest discomfort or shortness of breath. He was slightly anxious and does have underlying anxiety with depression. Upon my arrival his last blood pressures in the 130/70 range and he reports that as long as he is not moving he's having minimal discomfort in the left scrotum and groin area. He denies shortness of breath. He has known coronary artery disease and compensated systolic heart failure with ejection fraction 30-40 percent range felt to be due to a combination of ischemic and hypertensive heart disease. He has history of sick sinus syndrome and is status post pacemaker placement. Several years ago. He has no known history of thromboembolic disease. Date Seen 03/27/17 Attending Physician Elaine Jauregui MD PCP Parminder Ly MD Referring Physician Date of Admission Home Medications & Allergies Home Medications Reviewed patient Home Medication Reconciliation Form Allergies Allergies Coded Allergies Penicillins (Verified Allergy, Mild, 11/23/15) Past Twftmth-Lyjtie-Kvgedl Hx Patient Social History Alcohol Use: Denies Use Recreational Drug Use: No Smoking Status: Former Smoker Recent Foreign Travel: No Contact w/other who traveled: No Recent Hopitalizations: No Recent Infectious Disease Expo: No Immunizations Up To Date Date of Pneumonia Vaccine: Jul 26, 2015 Date of Influenza Vaccine: Jul 26, 2015 Seasonal Allergies Seasonal Allergies: No Surgeries HX Surgeries: Yes (hernia repair, TURP, GROIN RUPTURE REPAIR, EAR LESION REMOVAL, ) Surgeries: Coronary Stent, Defibrillator Respiratory Hx Respiratory Disorders: Yes Cardiovascular Hx Cardiovascular Disorders: Yes (defib-medtronic) Cardiac Disorders: Hypertension Neurological Hx Neurological Disorders: No Reproductive System Hx Reproductive Disorders: No Sexually Transmitted Disease: No Genitourinary Hx Genitourinary Disorders: No Gastrointestinal Hx Gastrointestinal Disorders: Yes Gastrointestinal Disorders: Gastroesophageal Reflux Musculoskeletal Hx Musculoskeletal Disorders: Yes Musculoskeletal Disorders: Arthritis Endocrine Hx Endocrine Disorders: Yes Endocrine Disorders: Diabetes, Non-Insulin dep HEENT HX ENT Disorders: No Hearing Impairment: Bilateral Hearing Aide Cancer Hx Cancer: No Psychosocial Hx Psychiatric Problems: No Integumentary HX Skin/Integumentary Disorder: No Blood Transfusions Hx Blood Disorders: No Review of Systems Constitutional: no symptoms reported Respiratory: see HPI, No cough, No dyspnea on exertion, No hemoptysis, No orthopnea, No phlegm, No short of breath, No wheezing Cardiovascular: no symptoms reported, No chest pain, No edema, Hx of Intervention, No palpitations, No syncope, No vascular heart diseas, No other Physical Exam Physical Exam Vital Signs Vital Sign - Last 12Hours 03/26/17 03/26/17 03/26/17 09:00 15:34 15:40 Temp 98.0 Pulse 86 Resp 20 B/P (MAP) 159/92 Pulse Ox 95 O2 Delivery Nasal Cannula O2 Flow Rate 5.00 Capillary Refill : General Appearance: No Apparent Distress, Obese HEENT: PERRL/EOMI Neck: Full Range of Motion, Normal Inspection, Non Tender Respiratory: Chest Non Tender, No Accessory Muscle Use, No Respiratory Distress , Other (few rales in the left base which clear with several deep inspirations.no wheezes or rhonchi are noted.) Cardiovascular: Regular Rate, Rhythm, No Edema, No Gallop, No JVD, No Murmur, Normal Peripheral Pulses Gastrointestinal: Normal Bowel Sounds, No Organomegaly, No Pulsatile Mass, Non Tender, Soft Genital/Rectal: Other (minimal scrotal swelling is noted with no significant per brother is no evidence for hematoma formation laparoscopic incisions are clean no evidence for hematoma is noted.) Extremity: Normal Capillary Refill, Non Tender, No Calf Tenderness, No Pedal Edema Neurologic/Psychiatric: Alert, Oriented x3 Assessment/Plan Admission Diagnosis 1. Status post left laparoscopic inguinal hernia repair and left orchiectomy complicated by postoperative hypertension currently resolved. 2. History of chronic systolic heart failure secondary to combination of ischemic heart disease and hypertensive heart disease. This appears to be compensated we'll have the patient continue his home medications and agree with discharge later today. 3. Type II diabetes mellitus under reasonable control continue recommendations for lower glycemic diet and Levemir 30 units twice a day unchanged first dose tonight. Copy Copies To 1: PARMINDER LY MD Clinical Quality Measures DVT/VTE Risk/Contraindication: Risk Factor Score Per Nursin RFS Level Per Nursing on Admit: 4+=Very High PARMINDER LY MD Mar 27, 2017 12:21
--- NOTE | 2017-03-27 13:16 | Progress Note (SOAP) ---
Subjective Subjective/Events-last exam doing well. pain controlled. tolerating diet. urinating on own. Objective Exam Vital Signs Date Time Temp Pulse Resp B/P (MAP) Pulse Ox O2 Delivery O2 Flow Rate FiO2 03/27/17 12:39 98.1 83 20 141/71 93 03/27/17 07:35 99.3 78 20 139/69 91 03/27/17 05:37 97.7 82 22 131/75 93 Bi-pap 03/27/17 04:00 97.7 82 22 131/75 93 03/27/17 01:37 98.8 80 20 119/64 94 Nasal Cannula 3.00 03/27/17 00:00 97.8 75 22 111/66 92 03/26/17 21:37 99.0 82 20 116/61 93 Nasal Cannula 3.00 03/26/17 21:00 93 3.00 03/26/17 20:00 99.0 82 20 116/61 90 5.00 03/26/17 19:04 92 5.00 03/26/17 17:30 98.0 84 18 152/72 95 Nasal Cannula 3.00 03/26/17 16:34 98.0 84 18 152/72 95 Nasal Cannula 3.00 03/26/17 16:14 74 137/66 93 5.00 03/26/17 15:40 98.0 86 20 159/92 95 Nasal Cannula 3.00 03/26/17 15:34 97.4 77 20 150/72 93 5.00 I & O 03/27/17 07:00 Intake Total 2830 ml Balance 2830 ml Capillary Refill : General Appearance: No Apparent Distress HEENT: PERRL/EOMI Neck: Full Range of Motion Respiratory: Chest Non Tender, Lungs Clear Cardiovascular: Regular Rate, Rhythm Gastrointestinal: normal bowel sounds, soft, other (incisions clean/dry) Extremity: Normal Capillary Refill Neurologic/Psychiatric: Alert, Oriented x3 Skin: Normal Color Lymphatic: No Adenopathy Results Lab Laboratory Tests 03/26/17 16:31: Glucometer 179H 03/26/17 20:33: Glucometer 157H 03/27/17 06:11: Glucometer 144H 03/27/17 10:42: Glucometer 196H Assessment/Plan Assessment/Plan Assess & Plan/Chief Complaint s/p lap left inguinal hernia repair and left orchiectomy. doing well. increase ambulation. home soon. Clinical Quality Measures DVT/VTE Risk/Contraindication: Risk Factor Score Per Nursin RFS Level Per Nursing on Admit: 4+=Very High KATHRINE SMITH MD Mar 27, 2017 1:16 pm
== END 2017-03-27 13:45 ==
LOC: SDC 08:46 → 4TH 15:35 → SDC 03-27 13:45
PROVIDERS: ATTEND Surgery Pediatric Surgery
DX: K40.90 Unilateral inguinal hernia, without obstruction or gangrene, not specified as recurrent (principal); N45.3 Epididymo-orchitis; D17.6 Benign lipomatous neoplasm of spermatic cord; I11.0 Hypertensive heart disease with heart failure; I50.22 Chronic systolic (congestive) heart failure; E78.00 Pure hypercholesterolemia, unspecified; I25.10 Atherosclerotic heart disease of native coronary artery without angina pectoris; E11.9 Type 2 diabetes mellitus without complications; I48.91 Unspecified atrial fibrillation; N40.0 Benign prostatic hyperplasia without lower urinary tract symptoms; F32.9 Major depressive disorder, single episode, unspecified; F41.9 Anxiety disorder, unspecified; G47.33 Obstructive sleep apnea (adult) (pediatric); Z95.0 Presence of cardiac pacemaker; Z79.4 Long term (current) use of insulin; Z87.891 Personal history of nicotine dependence
CPT/HCPCS: 82962; 94664; 94760

== ENCOUNTER 2018-01-06 10:52 | Outpatient (RCR) | payer MEDICARE, OTHER ==
[~2018-01-06 10:52] MED LIST changes: +HYDR-3730 PO
== END 2018-02-02 11:02 | disposition home or self-care (01) ==
PROVIDERS: ATTEND Internal Medicine
DX: M54.16 Radiculopathy, lumbar region (principal)

== ENCOUNTER → 2018-01-27 | Outpatient (CLI) | payer MEDICARE, OTHER | LOC: CARD 13:28 | PROVIDERS: ATTEND Nurse Practitioner Family | DX: R06.09 Other forms of dyspnea (principal); I25.10 Atherosclerotic heart disease of native coronary artery without angina pectoris; I10 Essential (primary) hypertension; I25.5 Ischemic cardiomyopathy; I48.92 Unspecified atrial flutter | CPT/HCPCS: 93306 ==

== ENCOUNTER 2018-02-11 13:56 | Outpatient (CLI) | payer MEDICARE, OTHER ==
[~2018-02-11] VITALS: Ht 180.3 cm; Wt 112.5 kg
[2018-02-11] MEDS ORDERED: methylPREDNISolone 80 MG/ML (DEPO MEDROL) VIAL ONE (14:03)
[2018-02-11 14:48] VITALS: BP 116/86
[2018-02-11 15:21] VITALS: BP 155/90
--- NOTE | 2018-02-11 23:48 | OPERATIVE REPORT ---
DATE OF SERVICE: 02/11/2018 DIAGNOSIS: Lumbar radiculopathy. PROCEDURE: Fluoroscopic guided interlaminar epidural steroid injection. PROCEDURE IN DETAIL: After obtaining informed consent from the patient, the patient's chart was reviewed. The patient was then brought to the procedure room and placed in the prone position. A timeout was performed. The back was prepped with antiseptic solution and under fluoro guidance, the patient's lumbar spine was identified at the level of L5-S1. The L5-S1 vertebra was identified with fluoro guidance and approximately 2 mL of 1.5% lidocaine solution was used to anesthetize the skin directly down to the pedicle of the L5-S1 and under fluoroscopic guidance, the tract was anesthetized up to the interlaminar space and the ligamentum flavum. This needle was withdrawn. Then, a 20-gauge 3.5 inch Tuohy needle was then directed following the same tract that was anesthetized with the spinal needle. Using loss of resistance, the epidural space was identified and then the syringe was switched for contrast solution which was injected, approximately 1 mL. After secondary confirmation of epidural access, another syringe was placed and 80 mg of Depo-Medrol was injected. The Tuohy needle was then flushed out with approximately 2 mL of the normal saline used from the loss of resistance syringe. Band-Aids were applied to all the procedure sites. The patient tolerated the procedure well and was taken to the recovery room in stable condition. COMPLICATIONS: None. Job ID: [id number] DocumentID: [id number] Dictated Date: 02/11/2018 15:18:30 Forestry Patrolman Date: 02/11/2018 23:48:09 Dictated By: JOE MORSE DO
== END 2018-02-11 15:21 | disposition home or self-care (01) ==
LOC: CARD 13:56
PROVIDERS: ATTEND Pain Medicine Interventional Pain Medicine
DX: M54.16 Radiculopathy, lumbar region (principal); M51.37 Other intervertebral disc degeneration, lumbosacral region
CPT/HCPCS: 62323

== ENCOUNTER 2018-03-08 14:04 | Outpatient (RCR) | payer MEDICARE, OTHER ==
[2018-04-16] MEDS ORDERED: NAPR-1071 PO (17:32)
[2018-04-19] MEDS ORDERED: CLIN300C11 PO (10:39)
== END 2018-06-06 | disposition home or self-care (01) ==
LOC: PULM 14:04
PROVIDERS: ATTEND Internal Medicine Cardiovascular Disease
DX: R06.02 Shortness of breath (principal); I11.0 Hypertensive heart disease with heart failure; I50.22 Chronic systolic (congestive) heart failure; I44.2 Atrioventricular block, complete; I25.10 Atherosclerotic heart disease of native coronary artery without angina pectoris; R07.9 Chest pain, unspecified; E78.5 Hyperlipidemia, unspecified; E11.9 Type 2 diabetes mellitus without complications; I49.5 Sick sinus syndrome; E66.9 Obesity, unspecified
CPT/HCPCS: 99211

== ENCOUNTER → 2018-03-18 | Outpatient (CLI) | payer MEDICARE, OTHER ==
[~2018-03-18] MED LIST changes: +NAPR-1071 PO
--- NOTE | 2018-03-18 13:36 | Diagnostic Imaging Report ---
PROCEDURE: CT lumbar spine without contrast. TECHNIQUE: Multiple contiguous axial images were obtained through the lumbar spine without the use of intravenous contrast. Sagittal and coronal reformations were then performed. INDICATION: Low back pain radiating into the right hip and right leg for two months. FINDINGS: There is mild right convexity lumbar scoliotic curvature. There is normal lordotic curvature. Minimal anterolisthesis of L4 on L5 is noted. The vertebral body heights are maintained. No acute compression fractures detected. There is severe multilevel degenerative disc disease with variable disc space narrowing and marginal spurring. There is vacuum disc noted at the L1-L2, L2-L3, L3-L4 and L4-L5 levels. There is significant multilevel facet arthropathy noted. The integrity of the spinal canal is difficult to assess but there is suggestion of trefoil stenosis of the canal at the L1-L2 level as well as L2-L3 levels. There appears to be significant spinal stenosis at L3-L4 and L4-L5 levels. There also appears to be multilevel neuroforaminal stenosis. Paraspinous tissues are unremarkable. Aorta is calcified but not aneurysmal. IMPRESSION: Severe lumbar spondylosis and scoliosis with probable multilevel central canal and neuroforaminal stenosis. No acute fracture is detected. Dictated by: Dictated on workstation # [id number]
== END ==
LOC: RAD 10:32
PROVIDERS: ATTEND Pain Medicine Interventional Pain Medicine
DX: M47.26 Other spondylosis with radiculopathy, lumbar region (principal); M41.86 Other forms of scoliosis, lumbar region
CPT/HCPCS: 72131

== ENCOUNTER → 2018-04-08 | Outpatient (CLI) | payer MEDICARE, OTHER ==
[~2018-04-08] VITALS: Ht 180.3 cm; Wt 114.3 kg
[~2018-04-08] MED LIST changes: +CLIN300C11 PO; +methylPREDNISolone 80 MG/ML (DEPO MEDROL) VIAL ONE
[2018-04-08 14:24] VITALS: BP 145/100
[2018-04-08 14:54] VITALS: BP 165/92
--- NOTE | 2018-04-08 18:36 | OPERATIVE REPORT ---
DATE OF SERVICE: 04/08/2018 DIAGNOSIS: Lumbar radiculopathy. PROCEDURE: Fluoroscopic guided interlaminar epidural steroid injection. PROCEDURE IN DETAIL: After obtaining informed consent from the patient, the patient's chart was reviewed. The patient was then brought to the procedure room and placed in the prone position. A timeout was performed. The back was prepped with antiseptic solution and under fluoro guidance, the patient's lumbar spine was identified at the level of L5-S1. The L5-S1 vertebra was identified with fluoro guidance and approximately 2 mL of 1.5% lidocaine solution was used to anesthetize the skin directly down to the pedicle of the L5-S1 and under fluoroscopic guidance, the tract was anesthetized up to the interlaminar space and the ligamentum flavum. This needle was withdrawn. Then, a 20-gauge 3.5 inch Tuohy needle was then directed following the same tract that was anesthetized with the spinal needle. Using loss of resistance, the epidural space was identified and then the syringe was switched for contrast solution which was injected, approximately 1 mL. After secondary confirmation of epidural access, another syringe was placed and 80 mg of Depo-Medrol was injected. The Tuohy needle was then flushed out with approximately 2 mL of the normal saline used from the loss of resistance syringe. Band-Aids were applied to all the procedure sites. The patient tolerated the procedure well and was taken to the recovery room in stable condition. COMPLICATIONS: None. Job ID: [id number] DocumentID: [id number] Dictated Date: 04/08/2018 14:53:01 Delivery Clerk Date: 04/08/2018 18:35:54 Dictated By: JOE MORSE DO
== END ==
LOC: CARD 14:11
PROVIDERS: ATTEND Pain Medicine Interventional Pain Medicine
DX: M54.16 Radiculopathy, lumbar region (principal)
CPT/HCPCS: 62323

== ENCOUNTER 2018-05-09 14:14 | Emergency (ER) | payer MEDICARE, OTHER ==
[~2018-05-09] VITALS: Ht 180.3 cm; Wt 115.2 kg
[~2018-05-09 14:14] MED LIST changes: -methylPREDNISolone 80 MG/ML (DEPO MEDROL) VIAL ONE
--- NOTE | 2018-05-09 15:12 | ED Abdominal Pain ---
General Chief Complaint: Abdominal/GI Problems Stated Complaint: CONSTIPATION Source of Information: Patient Exam Limitations: No Limitations History of Present Illness Date Seen by Provider: May 09, 2018 Time Seen by Provider: 15:07 Initial Comments Patient is an 88-year-old male who presents to the emergency room with complaints of constipation, leaking stool, and difficulty urination for the past 5 days. He reports that he recently started on some pain pills for chronic pain but he stopped taking those 2-3 days ago and he also reported that he started taking laxatives for the past 2-3 days. He reports that he just constantly feels the urge to defecate but is unable to. Timing/Duration: 4-5 Days Severity/Quality: Moderate Location: Generalized Abdomen Associated Symptoms: Other (constipation) Allergies and Home Medications Allergies Coded Allergies: Penicillins (Verified Allergy, Mild, 11/23/15) Home Medications Ascorbic Acid 500 Mg Tablet, 500 MG PO DAILY, (Reported) Brimonidine Tartrate 10 Ml Drops, 1 DROP OU BID, (Reported) one drop both eyes bid Cholecalciferol 1,000 Unit Capsule, 1,000 UNIT PO DAILY, (Reported) Clindamycin HCl 300 Mg Capsule, 300 MG PO TID Prescribed by: ALEX JACK on 04/19/18 1039 Fluoxetine HCl 20 Mg Tablet, 20 MG PO BID, (Reported) Furosemide 40 Mg Tablet, 40 MG PO DAILY, (Reported) Hydrocodone/Acetaminophen 1 Each Tablet, 1-2 EACH PO Q4H Prescribed by: KATHRINE SMITH on 03/26/17 1441 Insulin Detemir 100 Unit/1 Ml Insuln.pen, 30 UNIT SQ BID, (Reported) Naproxen 500 Mg Tablet, 500 MG PO NEEDED PRN for PAIN-MILD, (Reported) Nitroglycerin 0.4 Mg Subl, 0.4 MG SL PRN, (Reported) Pravastatin Sodium 20 Mg Tablet, 20 MG PO HS, (Reported) Ramipril 2.5 Mg Capsule, 2.5 MG PO DAILY, (Reported) Patient Home Medication List Home Medication List Reviewed: Yes Review of Systems Constitutional: see HPI; No chills, No diaphoresis EENTM: See HPI; No Blurred Vision, No Double Vision, No Eye Pain Respiratory: See HPI; Denies Cough, Denies Orthopnea Cardiovascular: See HPI; Denies Chest Pain, Denies Edema Gastrointestinal: Abdomen Distended, Abdominal Pain, Constipated, Diarrhea ( leaking diarrhea) Genitourinary: See HPI, Incontinence, Urgency Musculoskeletal: see HPI; No back pain, No gout Skin: see HPI; No change in color, No change in hair/nails Psychiatric/Neurological: See HPI; Denies Anxiety, Denies Depressed Endocrine: See HPI; Denies Excessive Sweating, Denies Flushing Hematologic/Lymphatic: See HPI; Denies Anemia, Denies Blood Clots All Other Systems Reviewed Negative Unless Noted: Yes Past Pohhvyc-Pozbdl-Gowfmb Hx Past Med/Social Hx: Reviewed Nursing Past Med/Soc Hx Patient Social History Former Smoker, Quit: Apr 16, 1971 Recent Foreign Travel: No Contact w/Someone Who Travel: No Recent Hopitalizations: No Immunizations Up To Date Date of Pneumonia Vaccine: Jul 26, 2015 Date of Influenza Vaccine: Jul 26, 2015 Seasonal Allergies Seasonal Allergies: No Past Medical History Surgeries: Yes (hernia repair, TURP, GROIN RUPTURE REPAIR, EAR LESION REMOVAL, ) Coronary Stent, Defibrillator Respiratory: Yes Sleep Apnea Currently Using CPAP: Yes Cardiac: Yes (defib-medtronic) Atrial Fibrillation, Cardiomyopathy, Hypertension Neurological: No Neuropathy Reproductive Disorders: No Sexually Transmitted Disease: No Genitourinary: Yes (incontinence) Renal Failure Gastrointestinal: Yes Gastroesophageal Reflux Musculoskeletal: Yes Arthritis, Gout Endocrine: Yes Diabetes, Non-Insulin dep HEENT: No Hearing Impairment: Bilateral Hearing Aide Cancer: No Psychosocial: No Integumentary: No Blood Disorders: No Family Medical History Reviewed Nursing Family Hx Diabetes Physical Exam Vital Signs Capillary Refill : Height/Weight/BMI Height: 5'11.00" Weight: 249lbs. 6.4oz. 113.825382op; 34.7 BMI Method:Stated General Appearance: WD/WN, no apparent distress HEENT: PERRL/EOMI, normal ENT inspection, TMs normal, pharynx normal Neck: non-tender, full range of motion, supple, normal inspection Respiratory: chest non-tender, lungs clear, normal breath sounds, no respiratory distress, no accessory muscle use Cardiovascular: regular rate, rhythm, no edema, no gallop, no JVD, no murmur Gastrointestinal: normal bowel sounds, non tender, soft, no organomegaly, no pulsatile mass, distended Rectal: normal rectal tone, heme negative stool, other (patient has a large amount of formed stool in his rectum on digital rectal exam.) Extremities: normal range of motion, non-tender, normal inspection, no pedal edema, no calf tenderness Back: normal inspection, no CVA tenderness, no vertebral tenderness Neurologic/Psychiatric: alert, normal mood/affect, oriented x 3 Skin: normal color, warm/dry Lymphatic: no adenopathy Progress/Results/Core Measures Results/Orders Lab Results Laboratory Tests Test 05/09/18 16:04 Range/Units White Blood Count 5.4 4.3-11.0 10^3/uL Red Blood Count 4.12 L 4.35-5.85 10^6/uL Hemoglobin 13.2 L 13.3-17.7 G/DL Hematocrit 39 L 40-54 % Mean Corpuscular Volume 95 80-99 FL Mean Corpuscular Hemoglobin 32 25-34 PG Mean Corpuscular Hemoglobin Concent 34 32-36 G/DL Red Cell Distribution Width 14.2 10.0-14.5 % Platelet Count 164 130-400 10^3/uL Mean Platelet Volume 9.0 7.4-10.4 FL Neutrophils (%) (Auto) 75 42-75 % Lymphocytes (%) (Auto) 15 12-44 % Monocytes (%) (Auto) 8 0-12 % Eosinophils (%) (Auto) 2 0-10 % Basophils (%) (Auto) 1 0-10 % Neutrophils # (Auto) 4.1 1.8-7.8 X 10^3 Lymphocytes # (Auto) 0.8 L 1.0-4.0 X 10^3 Monocytes # (Auto) 0.4 0.0-1.0 X 10^3 Eosinophils # (Auto) 0.1 0.0-0.3 10^3/uL Basophils # (Auto) 0.0 0.0-0.1 10^3/uL Sodium Level 137 135-145 MMOL/L Potassium Level 4.2 3.6-5.0 MMOL/L Chloride Level 109 H 98-107 MMOL/L Carbon Dioxide Level 21 21-32 MMOL/L Anion Gap 7 5-14 MMOL/L Blood Urea Nitrogen 21 H 7-18 MG/DL Creatinine 0.86 0.60-1.30 MG/DL Estimat Glomerular Filtration Rate > 60 BUN/Creatinine Ratio 24 Glucose Level 139 H 70-105 MG/DL Calcium Level 9.9 8.5-10.1 MG/DL Total Bilirubin 0.4 0.1-1.0 MG/DL Aspartate Amino Transf (AST/SGOT) 17 5-34 U/L Alanine Aminotransferase (ALT/SGPT) 14 0-55 U/L Alkaline Phosphatase 74 40-136 U/L Total Protein 5.8 L 6.4-8.2 GM/DL Albumin 3.6 3.2-4.5 GM/DL My Orders Orders - EDWIN MADRID Comprehensive Metabolic Panel (05/09/18 15:02) Acute Abd Series (05/09/18 15:02) Cbc With Automated Diff (05/09/18 15:02) Na Phos/Na Biphos Enema (Fleet Enema Teo (05/09/18 16:00) Na Phos/Na Biphos Enema (Fleet Enema Teo (05/09/18 17:00) Medications Given in ED Vital Signs/I&O Progress Progress Note : Time: 16:39 Progress Note A large amount of stool was removed digitally and a Fleet enema was instilled in the patient's rectum. He was able to keep the contents of the enema held in for about 15 minutes and had a very large bowel movement shortly after. Diagnostic Imaging Diagonstic Imaging: Xray Plain Films/CT/US/NM/MRI: abdomen Comments NAME: ALEXANDRA WILKES [facility] REC#: [id number] PT STATUS: REG ER : 1930 PHYSICIAN: EDWIN MADRID [facility] ADMIT DATE: 05/09/18/ER Signed Date of Exam: 05/09/18 ACUTE ABD SERIES INDICATION: No bowel movement for 4 days. TIME OF EXAM: 3:41 PM Comparison is made with prior chest from 08/26/2012. FINDINGS: Heart size is stable. Cardiac pacemaker remains in place. There is no infiltrate or failure. No effusion is seen. No free air is identified. Bowel gas pattern is nonobstructive. There is moderate stool in the transverse and left colon. There is moderate stool in the rectum. No bowel obstruction is seen. There are no pathologic calcifications identified. IMPRESSION: Moderate stool suggestive of constipation. The study is otherwise unremarkable. Dictated by: Dictated on workstation # [id number] Dict: 05/09/18 1530 Trans: 05/09/181599 Interpreted by: DAVON ALEMAN MD Electronically signed by: DAVON ALEMAN MD 05/09/181599 Reviewed: Reviewed by Me Departure Impression Primary Impression: Constipation Disposition: 01 HOME, SELF-CARE Condition: Stable/Unchanged Departure-Patient Inst. Decision time for Depature: 16:40 Referrals: ROXANNA VIDAL MD (PCP/Family) Primary Care Physician Patient Instructions: Constipation, Adult (DC) Add. Discharge Instructions: Refrain from taking the pain medication and to follow-up with Dr. Vidal to discuss alternative options for pain control. You may use ibuprofen and Tylenol in the meantime to help with pain control. Follow-up with Dr. Vidal within 1 week for a recheck. Continue to use your ucyr-ojh-plomrek laxatives as needed for constipation relief. Drink plenty of fluids. Return back to the emergency room for increased pain, constipation, nausea and vomiting, or any other concerns as needed. All discharge instructions reviewed with patient and/or family. Voiced understanding. EDWIN MADRID May 09, 2018 15:12
--- NOTE | 2018-05-09 15:46 | Diagnostic Imaging Report ---
INDICATION: No bowel movement for 4 days. TIME OF EXAM: 3:41 PM Comparison is made with prior chest from 08/26/2012. FINDINGS: Heart size is stable. Cardiac pacemaker remains in place. There is no infiltrate or failure. No effusion is seen. No free air is identified. Bowel gas pattern is nonobstructive. There is moderate stool in the transverse and left colon. There is moderate stool in the rectum. No bowel obstruction is seen. There are no pathologic calcifications identified. IMPRESSION: Moderate stool suggestive of constipation. The study is otherwise unremarkable. Dictated by: Dictated on workstation # [id number]
[2018-05-09] MEDS ORDERED: FLEET ENEMA ADULT 1 EA BTL PR ONE ×2 (16:00→17:00)
[2018-05-09 16:15] LABS: BASOPHILS % (AUTO) 1 % (0-10); EOSINOPHILS # (AUTO) 0.1 10^3/uL (0.0-0.3); EOSINOPHILS % (AUTO) 2 % (0-10); HEMATOCRIT 39 % (40-54); HEMOGLOBIN 13.2 G/DL (13.3-17.7); LYMPHOCYTES # (AUTO) 0.8 X 10^3 (1.0-4.0); LYMPHOCYTES % (AUTO) 15 % (12-44); MEAN CORPUSCULAR HEMOGLOBIN 32 PG (25-34); MEAN CORPUSCULAR HGB CONC 34 G/DL (32-36); MEAN CORPUSCULAR VOLUME 95 FL (80-99); MONOCYTES # (AUTO) 0.4 X 10^3 (0.0-1.0); MONOCYTES % (AUTO) 8 % (0-12); NEUTROPHILS # (AUTO) 4.1 X 10^3 (1.8-7.8); NEUTROPHILS % (AUTO) 75 % (42-75); PLATELET COUNT 164 10^3/uL (130-400); RED BLOOD COUNT 4.12 10^6/uL (4.35-5.85); RED CELL DISTRIBUTION WIDTH 14.2 % (10.0-14.5); WHITE BLOOD COUNT 5.4 10^3/uL (4.3-11.0)
[2018-05-09 16:39] LABS: ALANINE AMINOTRANSFERASE 14 U/L (0-55); ALBUMIN 3.6 GM/DL (3.2-4.5); ALKALINE PHOSPHATASE 74 U/L (40-136); BILIRUBIN,TOTAL 0.4 MG/DL (0.1-1.0); BUN/CREATININE RATIO 24; CALCIUM 9.9 MG/DL (8.5-10.1); CARBON DIOXIDE 21 MMOL/L (21-32); CHLORIDE 109 MMOL/L (98-107); CREATININE SERUM 0.86 MG/DL (0.60-1.30); GFR ESTIMATED > 60; GLUCOSE 139 MG/DL (70-105); POTASSIUM 4.2 MMOL/L (3.6-5.0); SODIUM 137 MMOL/L (135-145); TOTAL PROTEIN 5.8 GM/DL (6.4-8.2)
[2018-05-09 16:42] VITALS: BP 120/82
--- OUTSIDE RECORDS SUMMARY | 2018-05-10 12:28 | XMS REPORT | Continuity of Care Document ---
Author Author [facility] Organization [facility] Address Unknown Phone Unavailable Allergies Active Description Code Type Severity Reaction Onset Reported/Identified Relationship to Patient Clinical Status Yes Penicillins [id number] Drug Allergy Mild N/A 11/23/2015 Medications There is no data. Problems Date Dx Coded Attending Type Code Diagnosis Diagnosed By 09/24/1101 ALIYAH RITTER, ROXANNA Oconnell Ot M54.16 RADICULOPATHY, LUMBAR REGION 01/09/2011 Ot 173.2 MALIG XENIA SKIN EAR 01/09/2011 Ot 401.9 HYPERTENSION NOS 01/09/2011 Ot 455.2 INT HEMRRHOID W COMP NEC 01/09/2011 Ot 455.3 EXT HEMORRHOID W/O COMPL 01/09/2011 Ot V58.69 OTH MED,LT, CURRENT USE 01/17/2011 Ot 250.00 DIAB ORIN WO COMPL, TYPE II OR UNSPEC TY 01/17/2011 Ot 272.4 HYPERLIPIDEMIA NEC/NOS 01/17/2011 Ot 401.9 HYPERTENSION NOS 01/17/2011 Ot 414.00 CORON ATHEROSCLER NOS TYPE VESSEL, NATIV 01/17/2011 Ot 428.0 CONGESTIVE HEART FAILURE NOS 01/17/2011 Ot 564.00 UNSPEC CONSTIPATION 01/17/2011 Ot 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 01/17/2011 Ot 788.20 RETENTION OF URINE NOS 01/17/2011 Ot V45.82 PERCUTANEOUS TRANSLUM CORON ANGIOPLASTY 01/17/2011 Ot V58.63 LONG-TERM( CURRENT)USE OF ANTIPLATELET/AN 01/17/2011 Ot V58.66 LONG-TERM ( CURRENT) USE OF ASPIRIN 01/17/2011 Ot V58.69 OTH MED,LT, CURRENT USE 01/18/2011 Ot 788.20 RETENTION OF URINE NOS 01/30/2011 Ot 250.00 DIAB ORIN WO COMPL, TYPE II OR UNSPEC TY 01/30/2011 Ot 272.4 HYPERLIPIDEMIA NEC/NOS 01/30/2011 Ot 276.1 HYPOSMOLALITY 01/30/2011 Ot 278.00 OBESITY, NOS 01/30/2011 Ot 401.9 HYPERTENSION NOS 01/30/2011 Ot 414.01 CORONARY ATHEROSCLEROSIS 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 01/30/2011 Ot 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 DIS NEC 01/30/2011 Ot 428.0 CONGESTIVE HEART FAILURE NOS 01/30/2011 Ot 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 01/30/2011 Ot 530.81 ESOPHAGEAL REFLUX 01/30/2011 Ot 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 01/30/2011 Ot 788.20 RETENTION OF URINE NOS 01/30/2011 Ot V45.01 CARDIAC PACEMAKER IN SITU 01/30/2011 Ot V45.82 PERCUTANEOUS TRANSLUM CORON ANGIOPLASTY 01/30/2011 Ot V85.37 BODY MASS INDEX 37.0-37.9, ADULT 08/20/2011 Ot 272.4 HYPERLIPIDEMIA NEC/NOS 08/20/2011 Ot 401.9 HYPERTENSION NOS 08/20/2011 Ot 413.9 ANGINA PECTORIS NEC/NOS 08/20/2011 Ot 414.01 CORONARY ATHEROSCLEROSIS 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 08/20/2011 Ot 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 DIS NEC 08/20/2011 Ot 428.0 CONGESTIVE HEART FAILURE NOS 07/13/2012 Ot 272.4 HYPERLIPIDEMIA NEC/NOS 07/13/2012 Ot 278.00 OBESITY, NOS 07/13/2012 Ot 401.9 HYPERTENSION NOS 07/13/2012 Ot 414.01 CORONARY ATHEROSCLEROSIS 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 07/13/2012 Ot 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 DIS NEC 07/13/2012 Ot 427.31 ATRIAL FIBRILLATION 07/13/2012 Ot 427.32 ATRIAL FLUTTER 07/13/2012 Ot 427.81 SINOATRIAL NODE DYSFUNCT 07/13/2012 Ot 428.0 CONGESTIVE HEART FAILURE NOS 07/13/2012 Ot 428.22 CHRONIC SYSTOLIC HRT FAILURE 07/13/2012 Ot 780.79 OTH MALAISE FATIGUE 07/13/2012 Ot 786.09 RESPIRATORY ABNORM NEC 07/13/2012 Ot 790.29 OTHER ABNORMAL GLUCOSE 07/13/2012 Ot V45.01 CARDIAC PACEMAKER IN SITU 07/13/2012 Ot V45.82 PERCUTANEOUS TRANSLUM CORON ANGIOPLASTY 07/13/2012 Ot V58.63 LONG-TERM( CURRENT)USE OF ANTIPLATELET/AN 07/13/2012 Ot V58.69 OTH MED,LT, CURRENT USE 07/13/2012 Ot V85.34 BODY MASS INDEX 34.0-34.9, ADULT 08/26/2012 Ot 486 PNEUMONIA, ORGANISM NOS 08/26/2012 Ot 786.2 COUGH 09/14/2012 Ot 787.91 DIARRHEA 03/28/2014 MARI BRADY HOME LIGHTING ADVISER Ot 716.90 ARTHROPATHY NOS-UNSPEC 03/28/2014 MARI BRADY HOME LIGHTING ADVISER Ot 729.5 PAIN IN LIMB 03/28/2014 MARI BRADY HOME LIGHTING ADVISER Ot 816.00 FX PHALANX, HAND NOS-CL 03/28/2014 MARI BRADY HOME LIGHTING ADVISER Ot E888.9 FALL NOS 03/28/2014 MARI BRADY HOME LIGHTING ADVISER Ot V45.01 CARDIAC PACEMAKER IN SITU 03/31/2014 RENE EDDY MD Ot 250.00 DIAB ORIN WO COMPL, TYPE II OR UNSPEC TY 03/31/2014 RENE EDDY MD Ot 272.0 PURE HYPERCHOLESTEROLEM 03/31/2014 RENE EDDY MD Ot 274.9 GOUT NOS 03/31/2014 RENE EDDY MD Ot 401.9 HYPERTENSION NOS 03/31/2014 RENE EDDY MD Ot 414.00 CORON ATHEROSCLER NOS TYPE VESSEL, NATIV 03/31/2014 RENE EDDY MD Ot 530.81 ESOPHAGEAL REFLUX 03/31/2014 RENE EDDY MD Ot 716.90 ARTHROPATHY NOS-UNSPEC 03/31/2014 RENE EDDY MD Ot 924.20 CONTUSION OF FOOT 03/31/2014 RENE EDDY MD Ot E888.9 FALL NOS 03/31/2014 RENE EDDY MD Ot V45.01 CARDIAC PACEMAKER IN SITU 03/31/2014 RENE EDDY MD Ot V45.82 PERCUTANEOUS TRANSLUM CORON ANGIOPLASTY 09/20/2014 MADHURI RITTER, TERELL Antunez Ot 709.9 09/20/2014 MADHURI RITTER, TERELL Antunez Ot V72.63 09/20/2014 MADHURI RITTER, TERELL Antunez Ot V74.8 09/20/2014 MADHURI RITTER, TERELL Antunez Ot 173.11 BASAL CELL CARCINOMA OF EYELID, INCLUDIN 09/20/2014 MADHURI RITTER, TERELL Antunez Ot 250.00 DIAB ORIN WO COMPL, TYPE II OR UNSPEC TY 09/20/2014 MADHURI RITTER, TERELL Antunez Ot 702.0 ACTINIC KERATOSIS 09/20/2014 MADHURI RITTER, TERELL Antunez Ot V58.63 LONG-TERM(CURRENT)USE OF ANTIPLATELET/AN 09/20/2014 MADHURI RITTER, TERELL Tulio Ot V58.69 OTH MED,LT,CURRENT USE 10/12/2014 MADHURI RITTER, TERELL Antunez Ot 709.9 10/12/2014 MADHURI RITTER, TERELL M Ot V72.63 10/12/2014 MADHURI RITTER, TERELL M Ot V74.8 10/16/2014 MADHURI RITTER, TERELL Tulio Ot 709.9 10/16/2014 MADHURI RITTER, TERELL Tulio Ot V72.63 10/16/2014 MADHURI RITTER, TERELL M Ot V74.8 02/06/2015 MADHURI RITTER, TERELL M Ot 709.9 02/06/2015 MADHURI RITTER, TERELL M Ot V72.63 02/06/2015 MADHURI RITTER, TERELL M Ot V74.8 05/23/2015 NI DPM, LARRY Q Ot 715.37 05/23/2015 NI DPM, LARRY Q Ot 729.5 05/23/2015 NI DPM, LARRY Q Ot 729.81 05/23/2015 NI DPM, LARRY Q Ot 733.90 05/30/2015 NI DPM, LARRY Q Ot 715.37 05/30/2015 NI DPM, LARRY Q Ot 729.5 05/30/2015 NI DPM, LARRY Q Ot 729.81 05/30/2015 NI DPM, LARRY Q Ot 733.90 11/20/2015 MADHURI RITTER, TERELL Antunez Ot 709.9 11/20/2015 MADHURI RITTER, TERELL Antunez Ot V72.63 11/20/2015 MADHURI RITTER, TERELL Antunez Ot V74.8 11/20/2015 NI DPM, LARRY Q Ot 715.37 11/20/2015 NI DPM, LARRY Q Ot 729.5 11/20/2015 NI DPM, LARRY Q Ot 729.81 11/20/2015 NI DPM, LARRY Q Ot 733.90 11/23/2015 Ot 787.91 11/23/2015 ALIYAH RITTER, ROXANNA Oconnell Ot D12.2 BENIGN NEOPLASM OF ASCENDING COLON 11/23/2015 ALIYAH RITTER, ROXANNA Oconnell Ot K63.5 POLYP OF COLON 11/23/2015 ROXANNA LY MD Ot K92.2 GASTROINTESTINAL HEMORRHAGE, UNSPECIFIED 05/21/2016 Ot 173.2 MALIG XENIA SKIN EAR 05/21/2016 Ot 455.6 HEMORRHOIDS NOS 05/21/2016 Ot V72.63 PRE- PROCEDURAL LABORATORY EXAMINATION 05/21/2016 Ot V74.8 SCREEN- BACTERIAL DIS NEC 05/21/2016 Ot 600.00 HYPERTROPHY (BENIGN) OF PROSTATE W/O URI 05/21/2016 Ot V72.83 EXAM PRE- OPERATIVE NEC 05/21/2016 Ot 425.4 PRIM CARDIOMYOPATHY NEC 05/21/2016 Ot V58.69 OTH MED,LT, CURRENT USE 05/21/2016 Ot 272.4 HYPERLIPIDEMIA NEC/NOS 05/21/2016 Ot 401.9 HYPERTENSION NOS 05/21/2016 Ot 414.00 CORON ATHEROSCLER NOS TYPE VESSEL, NATIV 05/21/2016 Ot 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 DIS NEC 05/21/2016 Ot 428.0 CONGESTIVE HEART FAILURE NOS 05/21/2016 Ot 786.50 CHEST PAIN NOS 05/21/2016 Ot V58.66 LONG-TERM ( CURRENT) USE OF ASPIRIN 05/21/2016 Ot V58.69 OTH MED,LT, CURRENT USE 05/21/2016 Ot V72.63 PRE- PROCEDURAL LABORATORY EXAMINATION 05/21/2016 Ot V72.81 EXAM-PRE- OPERATIVE CARDIOVASCULAR 05/21/2016 Ot 272.4 HYPERLIPIDEMIA NEC/NOS 05/21/2016 Ot 414.01 CORONARY ATHEROSCLEROSIS 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 05/21/2016 Ot V58.69 OTH MED,LT, CURRENT USE 05/21/2016 Ot 272.4 HYPERLIPIDEMIA NEC/NOS 05/21/2016 Ot 414.01 CORONARY ATHEROSCLEROSIS 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 05/21/2016 Ot V58.69 OTH MED,LT, CURRENT USE 05/21/2016 Ot 250.00 DIAB ORIN WO COMPL, TYPE II OR UNSPEC TY 05/21/2016 Ot 427.32 ATRIAL FLUTTER 05/21/2016 Ot 786.50 CHEST PAIN NOS 05/21/2016 Ot 272.4 HYPERLIPIDEMIA NEC/NOS 05/21/2016 Ot 278.00 OBESITY, NOS 05/21/2016 Ot 401.9 HYPERTENSION NOS 05/21/2016 Ot 414.00 CORON ATHEROSCLER NOS TYPE VESSEL, NATIV 05/21/2016 Ot 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 DIS NEC 05/21/2016 Ot 780.79 OTH MALAISE FATIGUE 05/21/2016 Ot 786.09 RESPIRATORY ABNORM NEC 05/21/2016 Ot 786.50 CHEST PAIN NOS 05/21/2016 Ot V58.63 LONG-TERM( CURRENT)USE OF ANTIPLATELET/AN 05/21/2016 Ot V58.66 LONG-TERM ( CURRENT) USE OF ASPIRIN 05/21/2016 Ot V58.69 OTH MED,LT, CURRENT USE 05/21/2016 Ot V72.63 PRE- PROCEDURAL LABORATORY EXAMINATION 05/21/2016 Ot 250.00 DIAB ORIN WO COMPL, TYPE II OR UNSPEC TY 05/21/2016 Ot 401.9 HYPERTENSION NOS 05/21/2016 Ot 414.00 CORON ATHEROSCLER NOS TYPE VESSEL, NATIV 05/21/2016 Ot V58.69 OTH MED,LT, CURRENT USE 05/21/2016 Ot 787.91 DIARRHEA 05/21/2016 BOOM RITTER FACC, ALI FACP CCDS Ot 401.9 HYPERTENSION NOS 05/21/2016 BOOM RITTER FACC, ALI FACP CCDS Ot 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 DIS NEC 05/21/2016 BOOM RITTER FACC, ALI FACP CCDS Ot V58.69 OTH MED,LT,CURRENT USE 10/21/2016 MADHURI RITTER, TERELL Antunez Ot 709.9 SKIN DISORDER NOS 10/21/2016 MADHURI RITTER, TERELL Antunez Ot V72.63 PRE-PROCEDURAL LABORATORY EXAMINATION 10/21/2016 MADHURI RITTER, TERELL Antunez Ot V74.8 SCREEN-BACTERIAL DIS NEC 10/21/2016 NI DPM, LARRY Q Ot 715.37 LOC OSTEOARTH NOS-ANKLE 10/21/2016 NI DPM, LARRY Q Ot 729.5 PAIN IN LIMB 10/21/2016 NI DPM, LARRY Q Ot 729.81 SWELLING OF LIMB 10/21/2016 NI DPM, LARRY Q Ot 733.90 BONE CARTILAGE DIS NOS 10/21/2016 ALIYAH RITTER, ROXANNA Oconnell Ot K92.2 GASTROINTESTINAL HEMORRHAGE, UNSPECIFIED 10/21/2016 ROXANNA LY MD Ot Z01.818 ENCOUNTER FOR OTHER PREPROCEDURAL EXAMIN 10/21/2016 BOOM RITTER FACC, ALI FACP CCDS Ot I73.9 PERIPHERAL VASCULAR DISEASE, UNSPECIFIED 10/21/2016 BOOM RITTER FACC, ALI FACP CCDS Ot I73.9 PERIPHERAL VASCULAR DISEASE, UNSPECIFIED 10/22/2016 BOOM RITTER FACC, ALI FACP CCDS Ot I73.9 PERIPHERAL VASCULAR DISEASE, UNSPECIFIED 10/22/2016 BOOM RITTER FACC, ALI FACP CCDS Ot I73.9 PERIPHERAL VASCULAR DISEASE, UNSPECIFIED 10/23/2016 BOOM RITTER FACC, ALI FACP CCDS Ot I73.9 PERIPHERAL VASCULAR DISEASE, UNSPECIFIED 11/03/2016 BOOM RITTER FACC, ALI FACP CCDS Ot I73.9 PERIPHERAL VASCULAR DISEASE, UNSPECIFIED 11/11/2016 BOOM RITTER FACC, ALI FACP CCDS Ot E66.9 OBESITY, UNSPECIFIED 11/11/2016 BOOM RITTER FACC, ALI FACP CCDS Ot E78.5 HYPERLIPIDEMIA, UNSPECIFIED 11/11/2016 BOOM RITTER FACC, ALI FACP CCDS Ot I10 ESSENTIAL (PRIMARY) HYPERTENSION 11/11/2016 BOOM RITTER FACC, ALI FACP CCDS Ot I25.10 ATHSCL HEART DISEASE 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ARY 11/11/2016 BOOM RITTER FACC, DELLA FACP CCDS Ot I25.5 ISCHEMIC CARDIOMYOPATHY 11/11/2016 BOOM RITTER FACC, ALI FACP CCDS Ot I25.84 CORONARY ATHEROSCLEROSIS DUE TO [place]CIFIE 11/11/2016 BOOM RITTER FACC, DELLA FACP CCDS Ot I49.5 SICK SINUS SYNDROME 11/11/2016 BOOM RITTER FACC, ALI FACP CCDS Ot I50.22 CHRONIC SYSTOLIC (CONGESTIVE) HEART FAIL 11/11/2016 BOOM RITTER FACC, ALI FACP CCDS Ot R06.02 SHORTNESS OF BREATH 11/11/2016 BOOM RITTER FACC, ALI FACP CCDS Ot R07.89 OTHER CHEST PAIN 11/11/2016 BOOM RITTER FACC, ALI FACP CCDS Ot R73.09 OTHER ABNORMAL GLUCOSE 11/11/2016 BOOM RITTER FACC, ALI FACP CCDS Ot Z68.35 BODY MASS INDEX (BMI) 35.0-35.9, ADULT 11/11/2016 BOOM RITTER FACC, ALI FACP CCDS Ot Z79.899 OTHER BRASS WIND INSTRUMENT MAKER (CURRENT) DRUG THERAPY 11/11/2016 BOOM RITTER FACC, ALI FACP CCDS Ot Z95.5 PRESENCE OF CORONARY ANGIOPLASTY IMPLANT 11/11/2016 BOOM RITTER FACC, ALI FACP CCDS Ot Z95.810 PRESENCE OF AUTOMATIC (IMPLANTABLE) CARD 11/18/2016 BOOM RITTER FACC, ALI FACP CCDS Ot E78.5 HYPERLIPIDEMIA, UNSPECIFIED 11/18/2016 BOOM RITTER FACC, ALI FACP CCDS Ot I25.10 ATHSCL HEART DISEASE 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ARY 11/18/2016 BOOM RITTER FACC, ALI FACP CCDS Ot I25.5 ISCHEMIC CARDIOMYOPATHY 11/26/2016 Ot R60.0 LOCALIZED EDEMA 11/26/2016 Ot R06.02 SHORTNESS OF BREATH 11/26/2016 Ot R22.41 LOCALIZED SWELLING, MASS AND LUMP, RIGHT 11/27/2016 Ot R06.02 SHORTNESS OF BREATH 11/27/2016 Ot R22.41 LOCALIZED SWELLING, MASS AND LUMP, RIGHT 11/28/2016 BOOM RITTER FACC, DELLA FACP CCDS Ot E78.5 HYPERLIPIDEMIA, UNSPECIFIED 11/28/2016 BOOM RITTER FACC, ALI FACP CCDS Ot I25.10 ATHSCL HEART DISEASE 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ARY 11/28/2016 BOOM RITTER FACC, DELLA FACP CCDS Ot I25.5 ISCHEMIC CARDIOMYOPATHY 12/02/2016 BOOM RITTER FACC, ALI FACP CCDS Ot E66.9 OBESITY, UNSPECIFIED 12/02/2016 BOOM RITTER FACC, ALI FACP CCDS Ot E78.5 HYPERLIPIDEMIA, UNSPECIFIED 12/02/2016 BOOM RITTER FACC, ALI FACP CCDS Ot I10 ESSENTIAL (PRIMARY) HYPERTENSION 12/02/2016 BOOM RITTER FACC, ALI FACP CCDS Ot I25.10 ATHSCL HEART DISEASE 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ARY 12/02/2016 BOOM RITTER FACC, ALI FACP CCDS Ot I25.5 ISCHEMIC CARDIOMYOPATHY 12/02/2016 BOOM RITTER FACC, ALI FACP CCDS Ot I25.84 CORONARY ATHEROSCLEROSIS DUE TO [place] 12/02/2016 BOOM RITTER FACC, DELLA FACP CCDS Ot I49.5 SICK SINUS SYNDROME 12/02/2016 BOOM RITTER FACC, DELLA FACP CCDS Ot I50.22 CHRONIC SYSTOLIC (CONGESTIVE) HEART FAIL 12/02/2016 BOOM RITTER FACC, ALI FACP CCDS Ot R06.02 SHORTNESS OF BREATH 12/02/2016 DELLA NUR MD, FACCP CCDS Ot R07.89 OTHER CHEST PAIN 12/02/2016 BOOM RITTER FACC, DELLA FACP CCDS Ot R73.09 OTHER ABNORMAL GLUCOSE 12/02/2016 DELLA NUR MD, FACC FACP CCDS Ot Z68.35 BODY MASS INDEX (BMI) 35.0-35.9, ADULT 12/02/2016 DELLA NUR MD, FACC FACP CCDS Ot Z79.899 OTHER RETIREMENT (CURRENT) DRUG THERAPY 12/02/2016 DELLA NUR MD, FACC FACP CCDS Ot Z95.5 PRESENCE OF CORONARY ANGIOPLASTY IMPLANT 12/02/2016 DELLA NUR MD, FACC FACP CCDS Ot Z95.810 PRESENCE OF AUTOMATIC (IMPLANTABLE) CARD 12/04/2016 DELLA NUR MD, FACC FACP CCDS Ot E66.9 OBESITY, UNSPECIFIED 12/04/2016 BOOM RITTER FACC, ALI FACP CCDS Ot E78.5 HYPERLIPIDEMIA, UNSPECIFIED 12/04/2016 BOOM RITTER FACC, ALI FACP CCDS Ot I10 ESSENTIAL (PRIMARY) HYPERTENSION 12/04/2016 BOOM RITTER FACC, DELLA FACP CCDS Ot I25.10 ATHSCL HEART DISEASE 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ARY 12/04/2016 BOOM RITTER FACC, DELLA FACP CCDS Ot I25.5 ISCHEMIC CARDIOMYOPATHY 12/04/2016 BOOM RITTER FACC, ALI FACP CCDS Ot I25.84 CORONARY ATHEROSCLEROSIS DUE TO [place]IF[place] 12/04/2016 BOOM RITTER FACC, DELLA FACP CCDS Ot I49.5 SICK SINUS SYNDROME 12/04/2016 BOOM RITTER FACC, DELLA FACP CCDS Ot I50.22 CHRONIC SYSTOLIC (CONGESTIVE) HEART FAIL 12/04/2016 DELLA NUR MD, FACC FACP CCDS Ot R06.02 SHORTNESS OF BREATH 12/04/2016 DELLA NUR MD, FACC FACP CCDS Ot R07.89 OTHER CHEST PAIN 12/04/2016 DELLA NUR MD, FACC FACP CCDS Ot R73.09 OTHER ABNORMAL GLUCOSE 12/04/2016 DELLA NUR MD, FACC FACP CCDS Ot Z68.35 BODY MASS INDEX (BMI) 35.0-35.9, ADULT 12/04/2016 DELLA NUR MD, FACC FACP CCDS Ot Z79.899 OTHER BRASS WIND INSTRUMENT MAKER (CURRENT) DRUG THERAPY 12/04/2016 BOOM HAYDEN, ALI FACP CCDS Ot Z95.5 PRESENCE OF CORONARY ANGIOPLASTY IMPLANT 12/04/2016 BOOM RITTER FACC, ALI FACP CCDS Ot Z95.810 PRESENCE OF AUTOMATIC (IMPLANTABLE) CARD 12/08/2016 Ot R06.02 SHORTNESS OF BREATH 12/08/2016 Ot R22.41 LOCALIZED SWELLING, MASS AND LUMP, RIGHT 12/16/2016 FEDERICO JON MD Ot N43.3 HYDROCELE, UNSPECIFIED 12/16/2016 FEDERICO JON MD Ot N45.1 EPIDIDYMITIS 12/16/2016 FEDERICO JON MD Ot N43.3 HYDROCELE, UNSPECIFIED 12/16/2016 FEDERICO JON MD Ot N45.1 EPIDIDYMITIS 12/16/2016 BOOM RITTER FACC, ALI FACP CCDS Ot E11.9 TYPE 2 DIABETES MELLITUS WITHOUT COMPLIC 12/16/2016 BOOM RITTER FACC, ALI FACP CCDS Ot E78.4 OTHER HYPERLIPIDEMIA 12/16/2016 BOOM RITTER FACC, ALI FACP CCDS Ot I10 ESSENTIAL (PRIMARY) HYPERTENSION 12/16/2016 BOOM RITTER FACC, ALI FACP CCDS Ot I25.10 ATHSCL HEART DISEASE 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ARY 12/16/2016 BOOM RITTER FACC, ALI FACP CCDS Ot I25.5 ISCHEMIC CARDIOMYOPATHY 12/16/2016 BOOM RITTER FACC, ALI FACP CCDS Ot I48.92 UNSPECIFIED ATRIAL FLUTTER 12/16/2016 BOOM RITTER FACC, ALI FACP CCDS Ot I49.5 SICK SINUS SYNDROME 12/19/2016 BOOM RITTER FACC, ALI FACP CCDS Ot I73.9 PERIPHERAL VASCULAR DISEASE, UNSPECIFIED 12/19/2016 BOOM RITTER FACC, ALI FACP CCDS Ot I73.9 PERIPHERAL VASCULAR DISEASE, UNSPECIFIED 12/20/2016 BOOM RITTER FACC, ALI FACP CCDS Ot I73.9 PERIPHERAL VASCULAR DISEASE, UNSPECIFIED 12/22/2016 FEDERICO JON MD Ot N43.3 HYDROCELE, UNSPECIFIED 12/22/2016 FEDERICO JON MD Ot N45.1 EPIDIDYMITIS 02/26/2017 PABLO DO, ALEXANDRA F Ot M25.551 PAIN IN RIGHT HIP 02/26/2017 PABLO DO, ALEXANDRA F Ot M25.552 PAIN IN LEFT HIP 02/26/2017 PABLO DO, ALEXANDRA F Ot M54.5 LOW BACK PAIN 02/27/2017 PABLO DO, ALEXANDRA F Ot M25.551 PAIN IN RIGHT HIP 02/27/2017 PABLO DO, ALEXANDRA F Ot M25.552 PAIN IN LEFT HIP 02/27/2017 PABLO DO, ALEXANDRA F Ot M54.5 LOW BACK PAIN 03/03/2017 PABLO DO, ALEXANDRA F Ot M25.551 PAIN IN RIGHT HIP 03/03/2017 PABLO DO, ALEXANDRA F Ot M25.552 PAIN IN LEFT HIP 03/03/2017 PABLO DO, ALEXANDRA F Ot M54.5 LOW BACK PAIN 03/20/2017 KATHRINE SMITH MD, Ot K40.90 UNIL INGUINAL HERNIA, W/O OBST OR GANGR, 03/20/2017 KATHRINE SMITH MD Ot Z01.812 ENCOUNTER FOR PREPROCEDURAL LABORATORY E 03/20/2017 KATHRINE SMITH MD Ot Z11.2 ENCOUNTER FOR SCREENING FOR OTHER BACTER 03/24/2017 KATHRINE SMITH MD, Ot K40.90 UNIL INGUINAL HERNIA, W/O OBST OR GANGR, 03/24/2017 KATHRINE SMITH MD Ot Z01.812 ENCOUNTER FOR PREPROCEDURAL LABORATORY E 03/24/2017 KATHRINE SMITH MD, Ot Z11.2 ENCOUNTER FOR SCREENING FOR OTHER BACTER 03/27/2017 KATHRINE SMITH MD Ot 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 03/27/2017 KATHRINE SMITH MD, Ot E11.9 TYPE 2 DIABETES MELLITUS WITHOUT COMPLIC 03/27/2017 KATHRINE SMITH MD, Ot E78.00 PURE HYPERCHOLESTEROLEMIA, UNSPECIFIED 03/27/2017 KATHRINE SMITH MD, Ot F32.9 MAJOR DEPRESSIVE DISORDER, SINGLE EPISOD 03/27/2017 KATHRINE SMITH MD, Ot F41.9 ANXIETY DISORDER, UNSPECIFIED 03/27/2017 KATHRINE SMITH MD, Ot G47.33 OBSTRUCTIVE SLEEP APNEA (ADULT) (PEDIATR 03/27/2017 KATHRINE SMITH MD, Ot I11.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 03/27/2017 KATHRINE SMITH MD, Ot I25.10 ATHSCL HEART DISEASE 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ARY 03/27/2017 KATHRINE SMITH MD, Ot I48.91 UNSPECIFIED ATRIAL FIBRILLATION 03/27/2017 KATHRINE SMITH MD, Ot I50.22 CHRONIC SYSTOLIC (CONGESTIVE) HEART FAIL 03/27/2017 KATHRINE SMITH MD, Ot K40.90 UNIL INGUINAL HERNIA, W/O OBST OR GANGR, 03/27/2017 KATHRINE SMITH MD, Ot N40.0 BENIGN PROSTATIC HYPERPLASIA WITHOUT LOW 03/27/2017 KATHRINE SMITH MD, Ot N45.3 EPIDIDYMO-ORCHITIS 03/27/2017 KATHRINE SMITH MD, Ot Z79.4 BRASS WIND INSTRUMENT MAKER (CURRENT) USE OF INSULIN 03/27/2017 KATHRINE SMITH MD, Ot Z87.891 PERSONAL HISTORY OF NICOTINE DEPENDENCE 03/27/2017 KATHRINE SMITH MD, Ot Z95.0 PRESENCE OF CARDIAC PACEMAKER 03/30/2017 KATHRINE SMITH MD, Ot 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 03/30/2017 KATHRINE SMITH MD, Ot E11.9 TYPE 2 DIABETES MELLITUS WITHOUT COMPLIC 03/30/2017 KATHRINE SMITH MD, Ot E78.00 PURE HYPERCHOLESTEROLEMIA, UNSPECIFIED 03/30/2017 KATHRINE SMITH MD, Ot F32.9 MAJOR DEPRESSIVE DISORDER, SINGLE EPISOD 03/30/2017 KATHRINE SMITH MD, Ot F41.9 ANXIETY DISORDER, UNSPECIFIED 03/30/2017 KATHRINE SMITH MD, Ot G47.33 OBSTRUCTIVE SLEEP APNEA (ADULT) (PEDIATR 03/30/2017 KATHRINE SMITH MD, Ot I11.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 03/30/2017 KATHRINE SMITH MD, Ot I25.10 ATHSCL HEART DISEASE 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ARY 03/30/2017 KATHRINE SMITH MD, Ot I48.91 UNSPECIFIED ATRIAL FIBRILLATION 03/30/2017 KATHRINE SMITH MD, Ot I50.22 CHRONIC SYSTOLIC (CONGESTIVE) HEART FAIL 03/30/2017 KATHRINE SMITH MD, Ot K40.90 UNIL INGUINAL HERNIA, W/O OBST OR GANGR, 03/30/2017 KATHRINE SMITH MD, Ot N40.0 BENIGN PROSTATIC HYPERPLASIA WITHOUT LOW 03/30/2017 KATHRINE SMITH MD, Ot N45.3 EPIDIDYMO-ORCHITIS 03/30/2017 KATHRINE SMITH MD, Ot Z79.4 RETIREMENT (CURRENT) USE OF INSULIN 03/30/2017 KATHRINE SMITH MD, Ot Z87.891 PERSONAL HISTORY OF NICOTINE DEPENDENCE 03/30/2017 KATHRINE SMITH MD, Ot Z95.0 PRESENCE OF CARDIAC PACEMAKER 04/02/2017 KATHRINE SMITH MD, Ot 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 04/02/2017 KATHRINE SMITH MD, Ot E11.9 TYPE 2 DIABETES MELLITUS WITHOUT COMPLIC 04/02/2017 KATHRINE SMITH MD, Ot E78.00 PURE HYPERCHOLESTEROLEMIA, UNSPECIFIED 04/02/2017 KATHRINE SMITH MD, Ot F32.9 MAJOR DEPRESSIVE DISORDER, SINGLE EPISOD 04/02/2017 KATHRINE SMITH MD, Ot F41.9 ANXIETY DISORDER, UNSPECIFIED 04/02/2017 KATHRINE SMITH MD, Ot G47.33 OBSTRUCTIVE SLEEP APNEA (ADULT) (PEDIATR 04/02/2017 KATHRINE SMITH MD, Ot I11.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 04/02/2017 KATHRINE SMITH MD, Ot I25.10 ATHSCL HEART DISEASE 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ARY 04/02/2017 KATHRINE SMITH MD, Ot I48.91 UNSPECIFIED ATRIAL FIBRILLATION 04/02/2017 KATHRINE SMITH MD, Ot I50.22 CHRONIC SYSTOLIC (CONGESTIVE) HEART FAIL 04/02/2017 KATHRINE SMITH MD, Ot K40.90 UNIL INGUINAL HERNIA, W/O OBST OR GANGR, 04/02/2017 KATHRINE SMITH MD, Ot N40.0 BENIGN PROSTATIC HYPERPLASIA WITHOUT LOW 04/02/2017 KATHRINE SMITH MD, Ot N45.3 EPIDIDYMO-ORCHITIS 04/02/2017 KATHRINE SMITH MD, Ot Z79.4 BRASS WIND INSTRUMENT MAKER (CURRENT) USE OF INSULIN 04/02/2017 KATHRINE SMITH MD, Ot Z87.891 PERSONAL HISTORY OF NICOTINE DEPENDENCE 04/02/2017 KATHRINE SMITH MD, Ot Z95.0 PRESENCE OF CARDIAC PACEMAKER 04/04/2017 KATHRINE SMITH MD, Ot 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 04/04/2017 KATHRINE SMITH MD, Ot E11.9 TYPE 2 DIABETES MELLITUS WITHOUT COMPLIC 04/04/2017 KATHRINE SMITH MD, Ot E78.00 PURE HYPERCHOLESTEROLEMIA, UNSPECIFIED 04/04/2017 KATHRINE SMITH MD, Ot F32.9 MAJOR DEPRESSIVE DISORDER, SINGLE EPISOD 04/04/2017 KATHRINE SMITH MD, Ot F41.9 ANXIETY DISORDER, UNSPECIFIED 04/04/2017 KATHRINE SMITH MD, Ot G47.33 OBSTRUCTIVE SLEEP APNEA (ADULT) (PEDIATR 04/04/2017 KATHRINE SMITH MD, Ot I11.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 04/04/2017 KATHRINE SMITH MD, Ot I25.10 ATHSCL HEART DISEASE 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ARY 04/04/2017 KATHRINE SMITH MD, Ot I48.91 UNSPECIFIED ATRIAL FIBRILLATION 04/04/2017 KATHRINE SMITH MD, Ot I50.22 CHRONIC SYSTOLIC (CONGESTIVE) HEART FAIL 04/04/2017 KATHRINE SMITH MD, Ot K40.90 UNIL INGUINAL HERNIA, W/O OBST OR GANGR, 04/04/2017 KATHRINE SMITH MD, Ot N40.0 BENIGN PROSTATIC HYPERPLASIA WITHOUT LOW 04/04/2017 KATHRINE SMITH MD, Ot N45.3 EPIDIDYMO-ORCHITIS 04/04/2017 KATHRINE SMITH MD, Ot Z79.4 BRASS WIND INSTRUMENT MAKER (CURRENT) USE OF INSULIN 04/04/2017 KATHRINE SMITH MD, Ot Z87.891 PERSONAL HISTORY OF NICOTINE DEPENDENCE 04/04/2017 KATHRINE SMITH MD, Ot Z95.0 PRESENCE OF CARDIAC PACEMAKER 04/06/2017 KATHRINE SMITH MD, Ot 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 04/06/2017 KATHRINE SMITH MD, Ot E11.9 TYPE 2 DIABETES MELLITUS WITHOUT COMPLIC 04/06/2017 KATHRINE SMITH MD, Ot E78.00 PURE HYPERCHOLESTEROLEMIA, UNSPECIFIED 04/06/2017 KATHRINE SMITH MD, Ot F32.9 MAJOR DEPRESSIVE DISORDER, SINGLE EPISOD 04/06/2017 KATHRINE SMITH MD, Ot F41.9 ANXIETY DISORDER, UNSPECIFIED 04/06/2017 KATHRINE SMITH MD, Ot G47.33 OBSTRUCTIVE SLEEP APNEA (ADULT) (PEDIATR 04/06/2017 KATHRINE SMITH MD, Ot I11.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 04/06/2017 KATHRINE SMITH MD, Ot I25.10 ATHSCL HEART DISEASE 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ARY 04/06/2017 KATHRINE SMITH MD, Ot I48.91 UNSPECIFIED ATRIAL FIBRILLATION 04/06/2017 KATHRINE SMITH MD, Ot I50.22 CHRONIC SYSTOLIC (CONGESTIVE) HEART FAIL 04/06/2017 KATHRINE SMITH MD, Ot K40.90 UNIL INGUINAL HERNIA, W/O OBST OR GANGR, 04/06/2017 KATHRINE SMITH MD, Ot N40.0 BENIGN PROSTATIC HYPERPLASIA WITHOUT LOW 04/06/2017 KATHRINE SMITH MD, Ot N45.3 EPIDIDYMO-ORCHITIS 04/06/2017 KATHRINE SMITH MD, Ot Z79.4 BRASS WIND INSTRUMENT MAKER (CURRENT) USE OF INSULIN 04/06/2017 KATHRINE SMITH MD, Ot Z87.891 PERSONAL HISTORY OF NICOTINE DEPENDENCE 04/06/2017 KATHRINE SMITH MD, Ot Z95.0 PRESENCE OF CARDIAC PACEMAKER 05/07/2017 KATHRINE SMITH MD, Ot 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 05/07/2017 KATHRINE SMITH MD, Ot E11.9 TYPE 2 DIABETES MELLITUS WITHOUT COMPLIC 05/07/2017 KATHRINE SMITH MD, Ot E78.00 PURE HYPERCHOLESTEROLEMIA, UNSPECIFIED 05/07/2017 KATHRINE SMITH MD, Ot F32.9 MAJOR DEPRESSIVE DISORDER, SINGLE EPISOD 05/07/2017 KATHRINE SMITH MD, Ot F41.9 ANXIETY DISORDER, UNSPECIFIED 05/07/2017 KATHRINE SMITH MD, Ot G47.33 OBSTRUCTIVE SLEEP APNEA (ADULT) (PEDIATR 05/07/2017 KATHRINE SMITH MD, Ot I11.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 05/07/2017 KATHRINE SMITH MD, Ot I25.10 ATHSCL HEART DISEASE 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ARY 05/07/2017 KATHRINE SMITH MD, Ot I48.91 UNSPECIFIED ATRIAL FIBRILLATION 05/07/2017 KATHRINE SMITH MD, Ot I50.22 CHRONIC SYSTOLIC (CONGESTIVE) HEART FAIL 05/07/2017 KATHRINE SMITH MD, Ot K40.90 UNIL INGUINAL HERNIA, W/O OBST OR GANGR, 05/07/2017 KATHRINE SMITH MD, Ot N40.0 BENIGN PROSTATIC HYPERPLASIA WITHOUT LOW 05/07/2017 KATHRINE SMITH MD, Ot N45.3 EPIDIDYMO-ORCHITIS 05/07/2017 KATHRINE SMITH MD, Ot Z79.4 BRASS WIND INSTRUMENT MAKER (CURRENT) USE OF INSULIN 05/07/2017 KATHRINE SMITH MD, Ot Z87.891 PERSONAL HISTORY OF NICOTINE DEPENDENCE 05/07/2017 KATHRINE SMITH MD, Ot Z95.0 PRESENCE OF CARDIAC PACEMAKER 07/03/2017 KATHRINE SMITH MD, Ot 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 07/03/2017 KATHRINE SMITH MD, Ot E11.9 TYPE 2 DIABETES MELLITUS WITHOUT COMPLIC 07/03/2017 KATHRINE SMITH MD, Ot E78.00 PURE HYPERCHOLESTEROLEMIA, UNSPECIFIED 07/03/2017 KATHRINE SMITH MD, Ot F32.9 MAJOR DEPRESSIVE DISORDER, SINGLE EPISOD 07/03/2017 KATHRINE SMITH MD, Ot F41.9 ANXIETY DISORDER, UNSPECIFIED 07/03/2017 KATHRINE SMITH MD, Ot G47.33 OBSTRUCTIVE SLEEP APNEA (ADULT) (PEDIATR 07/03/2017 KATHRINE SMITH MD, Ot I11.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 07/03/2017 KATHRINE SMITH MD, Ot I25.10 ATHSCL HEART DISEASE 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ARY 07/03/2017 KATHRINE SMITH MD, Ot I48.91 UNSPECIFIED ATRIAL FIBRILLATION 07/03/2017 KATHRINE SMITH MD, Ot I50.22 CHRONIC SYSTOLIC (CONGESTIVE) HEART FAIL 07/03/2017 KATHRINE SMITH MD, Ot K40.90 UNIL INGUINAL HERNIA, W/O OBST OR GANGR, 07/03/2017 KATHRINE SMITH MD, Ot N40.0 BENIGN PROSTATIC HYPERPLASIA WITHOUT LOW 07/03/2017 KATHRINE SMITH MD, Ot N45.3 EPIDIDYMO-ORCHITIS 07/03/2017 KATHRINE SMITH MD, Ot Z79.4 BRASS WIND INSTRUMENT MAKER (CURRENT) USE OF INSULIN 07/03/2017 KATHRINE SMITH MD, Ot Z87.891 PERSONAL HISTORY OF NICOTINE DEPENDENCE 07/03/2017 KATHRINE SMITH MD, Ot Z95.0 PRESENCE OF CARDIAC PACEMAKER 07/10/2017 BOOM RITTER FACMeño, DELLA BENAVIDES CCDS Ot E11.9 TYPE 2 DIABETES MELLITUS WITHOUT COMPLIC 07/10/2017 BOOM RITTER FACC, DELLA BENAVIDES CCDS Ot E78.4 OTHER HYPERLIPIDEMIA 07/10/2017 BOOM RITTER FACC, DELLA FACP CCDS Ot I10 ESSENTIAL (PRIMARY) HYPERTENSION 07/10/2017 BOOM RITTER FACC, DELLA FACP CCDS Ot I25.10 ATHSCL HEART DISEASE 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ARY 07/10/2017 BOOM RITTER FACC, ALI FACP CCDS Ot I25.5 ISCHEMIC CARDIOMYOPATHY 07/10/2017 BOOM RITTER FACC, DELLA FACP CCDS Ot I48.92 UNSPECIFIED ATRIAL FLUTTER 07/10/2017 BOOM RITTER FACC, DELLA FACP CCDS Ot I49.5 SICK SINUS SYNDROME 12/10/2017 MADHURI RITTER, TERELL Antunez Ot 709.9 SKIN DISORDER NOS 12/10/2017 MADHURI RITTER, TERELL Antunez Ot V72.63 PRE-PROCEDURAL LABORATORY EXAMINATION 12/10/2017 MADHURI RITTER, TERELL Antunez Ot V74.8 SCREEN-BACTERIAL DIS NEC 12/10/2017 NI DPM, LARRY Q Ot 715.37 LOC OSTEOARTH NOS-ANKLE 12/10/2017 NI DPM, LARRY Q Ot 729.5 PAIN IN LIMB 12/10/2017 NI DPM, LARRY Q Ot 729.81 SWELLING OF LIMB 12/10/2017 NI DPM, LARRY Q Ot 733.90 BONE CARTILAGE DIS NOS 12/10/2017 ALIYAH RITTER, ROXANNA Oconnell Ot K92.2 GASTROINTESTINAL HEMORRHAGE, UNSPECIFIED 12/10/2017 ALIYAH RITTER, ROXANNA Oconnell Ot Z01.818 ENCOUNTER FOR OTHER PREPROCEDURAL EXAMIN 12/10/2017 BOOM RITTER FACC, DELLA FACP CCDS Ot I73.9 PERIPHERAL VASCULAR DISEASE, UNSPECIFIED 12/10/2017 BOOM RITTER FACC, DELLA FACP CCDS Ot E78.5 HYPERLIPIDEMIA, UNSPECIFIED 12/10/2017 BOOM RITTER FACC, DELLA FACP CCDS Ot I25.10 ATHSCL HEART DISEASE 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ARY 12/10/2017 BOOM RITTER FACC, DELLA FACP CCDS Ot I25.5 ISCHEMIC CARDIOMYOPATHY 12/10/2017 BOOM RITTER FACC, DELLA FACP CCDS Ot E11.9 TYPE 2 DIABETES MELLITUS WITHOUT COMPLIC 12/10/2017 BOOM RITTER FACC, DELLA FACP CCDS Ot E78.4 OTHER HYPERLIPIDEMIA 12/10/2017 BOOM RITTER FACC, DELLA FACP CCDS Ot I10 ESSENTIAL (PRIMARY) HYPERTENSION 12/10/2017 BOOM RITTER FACC, ALI FACP CCDS Ot I25.10 ATHSCL HEART DISEASE 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ARY 12/10/2017 BOOM RITTER FACC, ALI FACP CCDS Ot I25.5 ISCHEMIC CARDIOMYOPATHY 12/10/2017 BOOM RITTER FACC, ALI FACP CCDS Ot I48.92 UNSPECIFIED ATRIAL FLUTTER 12/10/2017 BOOM RITTER FACC, ALI FACP CCDS Ot I49.5 SICK SINUS SYNDROME 12/10/2017 Ot R06.02 SHORTNESS OF BREATH 12/10/2017 Ot R22.41 LOCALIZED SWELLING, MASS AND LUMP, RIGHT 12/10/2017 FEDERICO JON MD Ot N43.3 HYDROCELE, UNSPECIFIED 12/10/2017 FEDERICO JON MD Ot N45.1 EPIDIDYMITIS 12/29/2017 BOOM RITTER FACC, ALI FACP CCDS Ot E11.9 TYPE 2 DIABETES MELLITUS WITHOUT COMPLIC 12/29/2017 BOOM RITTER FACC, ALI FACP CCDS Ot E78.4 OTHER HYPERLIPIDEMIA 12/29/2017 BOOM RITTER FACC, ALI FACP CCDS Ot I10 ESSENTIAL (PRIMARY) HYPERTENSION 12/29/2017 BOOM RITTER FACC, ALI FACP CCDS Ot I25.10 ATHSCL HEART DISEASE 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ARY 12/29/2017 BOOM RITTER FACC, ALI FACP CCDS Ot I25.5 ISCHEMIC CARDIOMYOPATHY 12/29/2017 BOOM RITTER FACC, ALI FACP CCDS Ot I48.92 UNSPECIFIED ATRIAL FLUTTER 12/29/2017 BOOM RITTER FACC, ALI FACP CCDS Ot I49.5 SICK SINUS SYNDROME 12/29/2017 ROXANNA LY MD Ot M54.16 RADICULOPATHY, LUMBAR REGION 12/31/2017 ROXANNA LY MD Ot M54.16 RADICULOPATHY, LUMBAR REGION 01/05/2018 ROXANNA LY MD Ot M54.16 RADICULOPATHY, LUMBAR REGION 01/12/2018 ROXANNA LY MD Ot M54.16 RADICULOPATHY, LUMBAR REGION 01/12/2018 Ot 250.00 DIAB ORIN WO COMPL, TYPE II OR UNSPEC TY 01/12/2018 Ot 401.9 HYPERTENSION NOS 01/12/2018 Ot 414.00 CORON ATHEROSCLER NOS TYPE VESSEL, NATIV 01/12/2018 Ot V58.69 OTH MED,LT, CURRENT USE 01/12/2018 Ot 787.91 DIARRHEA 01/12/2018 BOOM RITTER FACC, ALI FACP CCDS Ot 401.9 HYPERTENSION NOS 01/12/2018 BOOM RITTER FACC, ALI FACP CCDS Ot 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 DIS NEC 01/12/2018 BOOM RITTER FACC, ALI FACP CCDS Ot V58.69 OTH MED,LT,CURRENT USE 01/12/2018 BOOM RITTER FACC, ALI FACP CCDS Ot E11.9 TYPE 2 DIABETES MELLITUS WITHOUT COMPLIC 01/12/2018 BOOM RITTER FACC, ALI FACP CCDS Ot E78.4 OTHER HYPERLIPIDEMIA 01/12/2018 BOOM RITTER FACC, ALI FACP CCDS Ot I10 ESSENTIAL (PRIMARY) HYPERTENSION 01/12/2018 BOOM RITTER FACC, ALI FACP CCDS Ot I25.10 ATHSCL HEART DISEASE 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ARY 01/12/2018 BOOM RITTER FACC, ALI FACP CCDS Ot I25.5 ISCHEMIC CARDIOMYOPATHY 01/12/2018 BOOM RITTER FAC, ALI FACP CCDS Ot I48.92 UNSPECIFIED ATRIAL FLUTTER 01/12/2018 BOOM RITTER FACC, ALI FACP CCDS Ot I49.5 SICK SINUS SYNDROME 01/12/2018 ALIYAH RITTER, ROXANNA Oconnell Ot M54.16 RADICULOPATHY, LUMBAR REGION 01/28/2018 ROXANNA LY MD Ot M54.16 RADICULOPATHY, LUMBAR REGION 01/28/2018 MADHURI RITTER, TERELL Antunez Ot 709.9 SKIN DISORDER NOS 01/28/2018 MADHURI RITTER, TERELL Atnunez Ot V72.63 PRE-PROCEDURAL LABORATORY EXAMINATION 01/28/2018 MADHURI RITTER, TERELL Antunez Ot V74.8 SCREEN-BACTERIAL DIS NEC 01/28/2018 NI DPM, LARRY Q Ot 715.37 LOC OSTEOARTH NOS-ANKLE 01/28/2018 NI DPM, LARRY Q Ot 729.5 PAIN IN LIMB 01/28/2018 NI DPM, LARRY Q Ot 729.81 SWELLING OF LIMB 01/28/2018 NI DPM, LARRY Q Ot 733.90 BONE CARTILAGE DIS NOS 01/28/2018 ALIYAH RITTER, ROXANNA Oconnell Ot K92.2 GASTROINTESTINAL HEMORRHAGE, UNSPECIFIED 01/28/2018 ALIYAH RITTER, ROXANNA Oconnell Ot Z01.818 ENCOUNTER FOR OTHER PREPROCEDURAL EXAMIN 01/28/2018 BOOM RITTER FACC, ALI FACP CCDS Ot I73.9 PERIPHERAL VASCULAR DISEASE, UNSPECIFIED 01/28/2018 BOOM RITTER FACC, ALI FACP CCDS Ot E78.5 HYPERLIPIDEMIA, UNSPECIFIED 01/28/2018 BOOM RITTER FACC, ALI FACP CCDS Ot I25.10 ATHSCL HEART DISEASE 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ARY 01/28/2018 BOOM MD FACC, ALI FACP CCDS Ot I25.5 ISCHEMIC CARDIOMYOPATHY 01/28/2018 BOOM RITTER FACC, ALI FACP CCDS Ot E11.9 TYPE 2 DIABETES MELLITUS WITHOUT COMPLIC 01/28/2018 BOOM RITTER FAC, ALI FACP CCDS Ot E78.4 OTHER HYPERLIPIDEMIA 01/28/2018 BOOM RITTER FACC, ALI FACP CCDS Ot I10 ESSENTIAL (PRIMARY) HYPERTENSION 01/28/2018 BOOM RITTER FAC, ALI FACP CCDS Ot I25.10 ATHSCL HEART DISEASE 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ARY 01/28/2018 BOOM RITTER FAC, ALI FACP CCDS Ot I25.5 ISCHEMIC CARDIOMYOPATHY 01/28/2018 BOOM RITTER [facility], ALI FACP CCDS Ot I48.92 UNSPECIFIED ATRIAL FLUTTER 01/28/2018 BOOM RITTER [facility], ALI FACP CCDS Ot I49.5 SICK SINUS SYNDROME 01/28/2018 Ot R06.02 SHORTNESS OF BREATH 01/28/2018 Ot R22.41 LOCALIZED SWELLING, MASS AND LUMP, RIGHT 01/28/2018 FEDERICO JON MD Ot N43.3 HYDROCELE, UNSPECIFIED 01/28/2018 FEDERICO JON MD Ot N45.1 EPIDIDYMITIS 01/28/2018 ALIYAH RITTER, ROXANNA Oconnell Ot M54.16 RADICULOPATHY, LUMBAR REGION 01/29/2018 BAIJENNI ESCUDERO L NANNY/HOUSEHOLD MANAGER Ot I10 ESSENTIAL (PRIMARY) HYPERTENSION 01/29/2018 BAIMA JENNI L NANNY/HOUSEHOLD MANAGER Ot I25.10 ATHSCL HEART DISEASE 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ARY 01/29/2018 BAITAHIRA ESCUDEROHER L NANNY/HOUSEHOLD MANAGER Ot I25.5 ISCHEMIC CARDIOMYOPATHY 01/29/2018 JENNI ARLPH L NANNY/HOUSEHOLD MANAGER Ot I48.92 UNSPECIFIED ATRIAL FLUTTER 01/29/2018 JENNI RALPH NANNY/HOUSEHOLD MANAGER Ot R06.09 OTHER FORMS OF DYSPNEA 01/29/2018 MADHURI RITTER, TERELL Antunez Ot 709.9 SKIN DISORDER NOS 01/29/2018 MADHURI RITTER, TERELL Antunez Ot V72.63 PRE-PROCEDURAL LABORATORY EXAMINATION 01/29/2018 MADHURI RITTER, TERELL Antunez Ot V74.8 SCREEN-BACTERIAL DIS NEC 01/29/2018 NI DPM, LARRY Q Ot 715.37 LOC OSTEOARTH NOS-ANKLE 01/29/2018 NI DPM, LARRY Q Ot 729.5 PAIN IN LIMB 01/29/2018 NI DPM, LARRY Q Ot 729.81 SWELLING OF LIMB 01/29/2018 NI DPM, LARRY Q Ot 733.90 BONE CARTILAGE DIS NOS 01/29/2018 ALIYAH RITTER, ROXANNA Oconnell Ot K92.2 GASTROINTESTINAL HEMORRHAGE, UNSPECIFIED 01/29/2018 ALIYAH RITTER, ROXANNA Oconnell Ot Z01.818 ENCOUNTER FOR OTHER PREPROCEDURAL EXAMIN 01/29/2018 BOOM RITTER FACC, DELLA FACP CCDS Ot I73.9 PERIPHERAL VASCULAR DISEASE, UNSPECIFIED 01/29/2018 BOOM RITTER FACC, ALI FACP CCDS Ot E78.5 HYPERLIPIDEMIA, UNSPECIFIED 01/29/2018 BOOM RITTER FACC, ALI FACP CCDS Ot I25.10 ATHSCL HEART DISEASE 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ARY 01/29/2018 BOOM RITTER FACC, DELLA FACP CCDS Ot I25.5 ISCHEMIC CARDIOMYOPATHY 01/29/2018 BOOM RITTER FACC, ALI FACP CCDS Ot E11.9 TYPE 2 DIABETES MELLITUS WITHOUT COMPLIC 01/29/2018 BOOM RITTER FACC, ALI FACP CCDS Ot E78.4 OTHER HYPERLIPIDEMIA 01/29/2018 BOOM RITTER FACC, ALI FACP CCDS Ot I10 ESSENTIAL (PRIMARY) HYPERTENSION 01/29/2018 BOOM RITTER FACC, ALI FACP CCDS Ot I25.10 ATHSCL HEART DISEASE 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ARY 01/29/2018 BOOM RITTER FACC, ALI FACP CCDS Ot I25.5 ISCHEMIC CARDIOMYOPATHY 01/29/2018 BOOM RITTER FACC, ALI FACP CCDS Ot I48.92 UNSPECIFIED ATRIAL FLUTTER 01/29/2018 BOOM RITTER FACC, ALI FACP CCDS Ot I49.5 SICK SINUS SYNDROME 01/29/2018 Ot R06.02 SHORTNESS OF BREATH 01/29/2018 Ot R22.41 LOCALIZED SWELLING, MASS AND LUMP, RIGHT 01/29/2018 DONTRELL RITTER, FEDERICO Philip Ot N43.3 HYDROCELE, UNSPECIFIED 01/29/2018 DONTRELL RITTER, FEDERICO Philip Ot N45.1 EPIDIDYMITIS 01/29/2018 ALIYAH RITTER, ROXANNA Oconnell Ot M54.16 RADICULOPATHY, LUMBAR REGION 02/02/2018 ALIYAH RITTER, ROXANNA Oconnell Ot M54.16 RADICULOPATHY, LUMBAR REGION 02/02/2018 ALIYAH RITTER, ROXANNA Oconnell Ot M54.16 RADICULOPATHY, LUMBAR REGION 02/09/2018 MADHURI RITTER, TERELL Antunez Ot 709.9 SKIN DISORDER NOS 02/09/2018 MADHURI RITTER, TERELL Antunez Ot V72.63 PRE-PROCEDURAL LABORATORY EXAMINATION 02/09/2018 MADHURI RITTER, TERELL Antunez Ot V74.8 SCREEN-BACTERIAL DIS NEC 02/09/2018 NI DPM, LARRY Q Ot 715.37 LOC OSTEOARTH NOS-ANKLE 02/09/2018 NI DPM, LARRY Q Ot 729.5 PAIN IN LIMB 02/09/2018 NI DPM, LARRY Q Ot 729.81 SWELLING OF LIMB 02/09/2018 NI DPM, LARRY Q Ot 733.90 BONE CARTILAGE DIS NOS 02/09/2018 ALIYAH RITTER, ROXANNA Oconnell Ot K92.2 GASTROINTESTINAL HEMORRHAGE, UNSPECIFIED 02/09/2018 ALIYAH RITTER, ROXANNA Oconnell Ot Z01.818 ENCOUNTER FOR OTHER PREPROCEDURAL EXAMIN 02/09/2018 BOOM RITTER FACC, DELLA FACP CCDS Ot I73.9 PERIPHERAL VASCULAR DISEASE, UNSPECIFIED 02/09/2018 BOOM RITTER FACC, ALI FACP CCDS Ot E78.5 HYPERLIPIDEMIA, UNSPECIFIED 02/09/2018 BOOM RITTER FACC, ALI FACP CCDS Ot I25.10 ATHSCL HEART DISEASE 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ARY 02/09/2018 BOOM RITTER FACC, ALI FACP CCDS Ot I25.5 ISCHEMIC CARDIOMYOPATHY 02/09/2018 BOOM RITTER FACC, ALI FACP CCDS Ot E11.9 TYPE 2 DIABETES MELLITUS WITHOUT COMPLIC 02/09/2018 BOOM MD FACC, ALI FACP CCDS Ot E78.4 OTHER HYPERLIPIDEMIA 02/09/2018 BOOM RITTER FACC, ALI FACP CCDS Ot I10 ESSENTIAL (PRIMARY) HYPERTENSION 02/09/2018 BOOM RITTER FACC, ALI FACP CCDS Ot I25.10 ATHSCL HEART DISEASE 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ARY 02/09/2018 BOOM RITTER FACC, ALI FACP CCDS Ot I25.5 ISCHEMIC CARDIOMYOPATHY 02/09/2018 BOOM RITTER FAC, ALI FACP CCDS Ot I48.92 UNSPECIFIED ATRIAL FLUTTER 02/09/2018 BOOM RITTER FAC, ALI FACP CCDS Ot I49.5 SICK SINUS SYNDROME 02/09/2018 Ot R06.02 SHORTNESS OF BREATH 02/09/2018 Ot R22.41 LOCALIZED SWELLING, MASS AND LUMP, RIGHT 02/09/2018 DONTRELL RITTER, FEDERICO Philip Ot N43.3 HYDROCELE, UNSPECIFIED 02/09/2018 DONTRELL RITTER, FEDERICO Philip Ot N45.1 EPIDIDYMITIS 02/09/2018 JENNI RALPH NANNY/HOUSEHOLD MANAGER Ot I10 ESSENTIAL (PRIMARY) HYPERTENSION 02/09/2018 JENNI RALPH L NANNY/HOUSEHOLD MANAGER Ot I25.10 ATHSCL HEART DISEASE 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ARY 02/09/2018 JENNI RALPH NANNY/HOUSEHOLD MANAGER Ot I25.5 ISCHEMIC CARDIOMYOPATHY 02/09/2018 JENNI RALPH NANNY/HOUSEHOLD MANAGER Ot I48.92 UNSPECIFIED ATRIAL FLUTTER 02/09/2018 JENNI RALPH NANNY/HOUSEHOLD MANAGER Ot R06.09 OTHER FORMS OF DYSPNEA 2018 JOE MORSE DO Ot M51.37 OTHER INTERVERTEBRAL DISC DEGENERATION, 2018 JOE MORSE DO Ot M54.16 RADICULOPATHY, LUMBAR REGION 02/12/2018 JOE MORSE DO Ot M51.37 OTHER INTERVERTEBRAL DISC DEGENERATION, 02/12/2018 JOE MORSE DO Ot M54.16 RADICULOPATHY, LUMBAR REGION 02/12/2018 JOE MORSE DO Ot M51.37 OTHER INTERVERTEBRAL DISC DEGENERATION, 02/12/2018 JOE MORSE DO Ot M54.16 RADICULOPATHY, LUMBAR REGION 03/19/2018 JOE MORSE DO Ot 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, LUMBAR REGION 03/19/2018 HEARNDON DO, JOE L Ot M47.26 OTHER SPONDYLOSIS WITH RADICULOPATHY, RUFINA 03/23/2018 BAIJENNI ESUCDERO L NANNY/HOUSEHOLD MANAGER Ot I10 ESSENTIAL (PRIMARY) HYPERTENSION 03/23/2018 BAIMA JENNI L NANNY/HOUSEHOLD MANAGER Ot I25.10 ATHSCL HEART DISEASE 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ARY 03/23/2018 BAIMA JENNI L NANNY/HOUSEHOLD MANAGER Ot I25.5 ISCHEMIC CARDIOMYOPATHY 03/23/2018 BAIMA, JENNI L NANNY/HOUSEHOLD MANAGER Ot I48.92 UNSPECIFIED ATRIAL FLUTTER 03/23/2018 BAIMA JENNI L NANNY/HOUSEHOLD MANAGER Ot R06.09 OTHER FORMS OF DYSPNEA 03/30/2018 MINI BUSTAMANTE, JOE L Ot 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, LUMBAR REGION 03/30/2018 MINI DO, JOE Perez Ot M47.26 OTHER SPONDYLOSIS WITH RADICULOPATHY, RUFINA 04/01/2018 MORALESKENA JENNI L NANNY/HOUSEHOLD MANAGER Ot I10 ESSENTIAL (PRIMARY) HYPERTENSION 04/01/2018 MORALESKENA JENNI L NANNY/HOUSEHOLD MANAGER Ot I25.10 ATHSCL HEART DISEASE 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ARY 04/01/2018 MORALESMA JENNI L NANNY/HOUSEHOLD MANAGER Ot I25.5 ISCHEMIC CARDIOMYOPATHY 04/01/2018 BAIMA JENNI L NANNY/HOUSEHOLD MANAGER Ot I48.92 UNSPECIFIED ATRIAL FLUTTER 04/01/2018 MORALESKENA JENNI L NANNY/HOUSEHOLD MANAGER Ot R06.09 OTHER FORMS OF DYSPNEA 04/06/2018 BOOM RITTER FACC, DELLA FACP CCDS Ot E11.9 TYPE 2 DIABETES MELLITUS WITHOUT COMPLIC 04/06/2018 BOOM RITTER FACC, ALI FACP CCDS Ot E66.9 OBESITY, UNSPECIFIED 04/06/2018 BOOM RITTER FACC, DELLA FACP CCDS Ot E78.5 HYPERLIPIDEMIA, UNSPECIFIED 04/06/2018 BOOM RITTER FACC, ALI FACP CCDS Ot I11.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 04/06/2018 BOOM RITTER FACC, DELLA FACP CCDS Ot I25.10 ATHSCL HEART DISEASE 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ARY 04/06/2018 BOOM RITTER FACC, ALI FACP CCDS Ot I44.2 ATRIOVENTRICULAR BLOCK, COMPLETE 04/06/2018 BOOM RITTER FACC, DELLA FACP CCDS Ot I49.5 SICK SINUS SYNDROME 04/06/2018 BOOM RITTER FACC, ALI FACP CCDS Ot I50.22 CHRONIC SYSTOLIC (CONGESTIVE) HEART FAIL 04/06/2018 BOOM RITTER FACC, DELLA FACP CCDS Ot R06.02 SHORTNESS OF BREATH 04/06/2018 BOOM RITTER FACC, ALI FACP CCDS Ot R07.9 CHEST PAIN, UNSPECIFIED 04/09/2018 HEARELIZABETHON DOJOE Ot M54.16 RADICULOPATHY, LUMBAR REGION 04/09/2018 HEARNDON DO, JOE Perez Ot M54.16 RADICULOPATHY, LUMBAR REGION 04/15/2018 JENNI RALPH NANNY/HOUSEHOLD MANAGER Ot I10 ESSENTIAL (PRIMARY) HYPERTENSION 04/15/2018 JENNI RALPH NANNY/HOUSEHOLD MANAGER Ot I25.10 ATHSCL HEART DISEASE 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ARY 04/15/2018 JENNI RALPH NANNY/HOUSEHOLD MANAGER Ot I25.5 ISCHEMIC CARDIOMYOPATHY 04/15/2018 JENNI RALPH NANNY/HOUSEHOLD MANAGER Ot I48.92 UNSPECIFIED ATRIAL FLUTTER 04/15/2018 JENNI RALPH NANNY/HOUSEHOLD MANAGER Ot R06.09 OTHER FORMS OF DYSPNEA 04/15/2018 BOOM RITTER FACC, DELLA FACP CCDS Ot E11.9 TYPE 2 DIABETES MELLITUS WITHOUT COMPLIC 04/15/2018 BOOM RITTER FACC, ALI FACP CCDS Ot E66.9 OBESITY, UNSPECIFIED 04/15/2018 BOOM RITTER FACC, ALI FACP CCDS Ot E78.5 HYPERLIPIDEMIA, UNSPECIFIED 04/15/2018 BOOM RITTER FACC, ALI FACP CCDS Ot I11.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 04/15/2018 BOOM RITTER FACC, ALI FACP CCDS Ot I25.10 ATHSCL HEART DISEASE 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ARY 04/15/2018 BOOM RITTER FACC, DELLA FACP CCDS Ot I44.2 ATRIOVENTRICULAR BLOCK, COMPLETE 04/15/2018 BOOM RITTER FACC, ALI FACP CCDS Ot I49.5 SICK SINUS SYNDROME 04/15/2018 BOOM RITTER FACC, ALI FACP CCDS Ot I50.22 CHRONIC SYSTOLIC (CONGESTIVE) HEART FAIL 04/15/2018 BOOM RITTER FACC, ALI FACP CCDS Ot R06.02 SHORTNESS OF BREATH 04/15/2018 BOOM RITTER FACC, DELLA FACP CCDS Ot R07.9 CHEST PAIN, UNSPECIFIED 04/15/2018 HEARNDON DOJOE Ot 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, LUMBAR REGION 04/15/2018 JOE MORSE DO Ot M47.26 OTHER SPONDYLOSIS WITH RADICULOPATHY, RUFINA 04/19/2018 MANDEEP FRIEDMAN MD Ot E11.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 2 DIABETES MELLITUS WITH DIABETIC N 04/19/2018 MANDEEP FRIEDMAN MD, Ot E66.9 OBESITY, UNSPECIFIED 04/19/2018 MANDEEP FRIEDMAN MD, Ot E78.5 HYPERLIPIDEMIA, UNSPECIFIED 04/19/2018 MANDEEP FRIEDMAN MD, Ot G47.33 OBSTRUCTIVE SLEEP APNEA (ADULT) (PEDIATR 04/19/2018 MANDEEP FRIEDMAN MD, Ot I11.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 04/19/2018 MANDEEP FRIEDMAN MD, Ot I25.10 ATHSCL HEART DISEASE 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ARY 04/19/2018 MANDEEP FRIEDMAN MD, Ot I25.5 ISCHEMIC CARDIOMYOPATHY 04/19/2018 MANDEEP FRIEDMAN MD, Ot I48.0 PAROXYSMAL ATRIAL FIBRILLATION 04/19/2018 MANDEEP FRIEDMAN MD, Ot I50.22 CHRONIC SYSTOLIC (CONGESTIVE) HEART FAIL 04/19/2018 MANDEEP FRIEDMAN MD Ot I62.01 NONTRAUMATIC ACUTE SUBDURAL HEMORRHAGE 04/19/2018 MANDEEP FRIEDMAN MD, Ot K21.9 GASTRO-ESOPHAGEAL REFLUX DISEASE WITHOUT 04/19/2018 MANDEEP FRIEDMAN MD, Ot K59.01 SLOW TRANSIT CONSTIPATION 04/19/2018 MANDEEP FRIEDMAN MD, Ot M00.9 PYOGENIC ARTHRITIS, UNSPECIFIED 04/19/2018 MANDEEP FRIEDMAN MD, Ot M10.9 GOUT, UNSPECIFIED 04/19/2018 MANDEEP FRIEDMAN MD Ot N19 UNSPECIFIED KIDNEY FAILURE 04/19/2018 MANDEEP FRIEDMAN MD, Ot R29.898 OT SYMPTOMS AND SIGNS INVOLVING THE MUS 04/19/2018 MANDEEP FRIEDMAN MD Ot Z68.34 BODY MASS INDEX (BMI) 34.0-34.9, ADULT 04/19/2018 MANDEEP FRIEDMAN MD Ot Z79.4 BRASS WIND INSTRUMENT MAKER (CURRENT) USE OF INSULIN 04/19/2018 MANDEEP FRIEDMAN MD Ot Z79.82 BRASS WIND INSTRUMENT MAKER (CURRENT) USE OF ASPIRIN 04/19/2018 MANDEEP FRIEDMAN MD, Ot Z79.899 OTHER RETIREMENT (CURRENT) DRUG THERAPY 04/19/2018 MANDEEP FRIEDMAN MD, Ot Z95.5 PRESENCE OF CORONARY ANGIOPLASTY IMPLANT 04/19/2018 MANDEEP FRIEDMAN MD, Ot Z95.810 PRESENCE OF AUTOMATIC (IMPLANTABLE) CARD 04/22/2018 JOE MORSE DO Ot M54.16 RADICULOPATHY, LUMBAR REGION 04/23/2018 MANDEEP FRIEDMAN MD Ot E11.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 2 DIABETES MELLITUS WITH DIABETIC N 04/23/2018 MANDEEP FRIEDMAN MD, Ot E66.9 OBESITY, UNSPECIFIED 04/23/2018 MANDEEP FRIEDMAN MD, Ot E78.5 HYPERLIPIDEMIA, UNSPECIFIED 04/23/2018 MANDEEP FRIEDMAN MD, Ot G47.33 OBSTRUCTIVE SLEEP APNEA (ADULT) (PEDIATR 04/23/2018 MANDEEP FRIEDMAN MD, Ot I11.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 04/23/2018 MANDEEP FRIEDMAN MD, Ot I25.10 ATHSCL HEART DISEASE 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ARY 04/23/2018 MANDEEP FRIEDMAN MD, Ot I25.5 ISCHEMIC CARDIOMYOPATHY 04/23/2018 MANDEEP FRIEDMAN MD, Ot I48.0 PAROXYSMAL ATRIAL FIBRILLATION 04/23/2018 MANDEEP FRIEDMAN MD, Ot I50.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 SYSTOLIC (CONGESTIVE) HEART FAIL 04/23/2018 MANDEEP FRIEDMAN MD, Ot I62.01 NONTRAUMATIC ACUTE SUBDURAL HEMORRHAGE 04/23/2018 MANDEEP FRIEDMAN MD, Ot K21.9 GASTRO-ESOPHAGEAL REFLUX DISEASE WITHOUT 04/23/2018 MANDEEP FRIEDMAN MD, Ot K59.01 SLOW TRANSIT CONSTIPATION 04/23/2018 MANDEEP FRIEDMAN MD, Ot M00.9 PYOGENIC ARTHRITIS, UNSPECIFIED 04/23/2018 MANDEEP FRIEDMAN MD, Ot M10.9 GOUT, UNSPECIFIED 04/23/2018 MANDEEP FRIEDMAN MD Ot N19 UNSPECIFIED KIDNEY FAILURE 04/23/2018 MANDEEP FRIEDMAN MD, Ot R29.898 OT SYMPTOMS AND SIGNS INVOLVING THE MUS 04/23/2018 MANDEEP FRIEDMAN MD Ot Z68.34 BODY MASS INDEX (BMI) 34.0-34.9, ADULT 04/23/2018 MANDEEP FRIEDMAN MD, Ot Z79.4 [employer] (CURRENT) USE OF INSULIN 04/23/2018 MANDEEP FRIEDMAN MD, Ot Z79.82 RETIREMENT (CURRENT) USE OF ASPIRIN 04/23/2018 MANDEEP FRIEDMAN MD, Ot Z79.899 OTHER [employer] (CURRENT) DRUG THERAPY 04/23/2018 MANDEEP FRIEDMAN MD, Ot Z95.5 PRESENCE OF CORONARY ANGIOPLASTY IMPLANT 04/23/2018 MANDEEP FRIEDMAN MD, Ot Z95.810 PRESENCE OF AUTOMATIC (IMPLANTABLE) CARD 04/27/2018 MANDEEP FRIEDMAN MD Ot E11.40 TYPE 2 DIABETES MELLITUS WITH DIABETIC N 04/27/2018 MANDEEP FRIEDMAN MD, Ot E66.9 OBESITY, UNSPECIFIED 04/27/2018 MANDEEP FRIEDMAN MD, Ot E78.5 HYPERLIPIDEMIA, UNSPECIFIED 04/27/2018 MANDEEP FRIEDMAN MD, Ot G47.33 OBSTRUCTIVE SLEEP APNEA (ADULT) (PEDIATR 04/27/2018 MANDEEP FRIEDMAN MD, Ot I11.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 04/27/2018 MANDEEP FRIEDMAN MD, Ot I25.10 ATHSCL HEART DISEASE 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ARY 04/27/2018 MANDEEP FRIEDMAN MD, Ot I25.5 ISCHEMIC CARDIOMYOPATHY 04/27/2018 MANDEEP FRIEDMAN MD, Ot I48.0 PAROXYSMAL ATRIAL FIBRILLATION 04/27/2018 MANDEEP FRIEDMAN MD, Ot I50.22 CHRONIC SYSTOLIC (CONGESTIVE) HEART FAIL 04/27/2018 MANDEEP FRIEDMAN MD, Ot I62.01 NONTRAUMATIC ACUTE SUBDURAL HEMORRHAGE 04/27/2018 MANDEEP FRIEDMAN MD, Ot K21.9 GASTRO-ESOPHAGEAL REFLUX DISEASE WITHOUT 04/27/2018 MANDEEP FRIEDMAN MD, Ot K59.01 SLOW TRANSIT CONSTIPATION 04/27/2018 MANDEEP FRIEDMAN MD, Ot M00.9 PYOGENIC ARTHRITIS, UNSPECIFIED 04/27/2018 MANDEEP FRIEDMAN MD, Ot M10.9 GOUT, UNSPECIFIED 04/27/2018 MANDEEP FRIEDMAN MD Ot N19 UNSPECIFIED KIDNEY FAILURE 04/27/2018 MANDEEP FRIEDMAN MD, Ot R29.898 OT SYMPTOMS AND SIGNS INVOLVING THE MUS 04/27/2018 MANDEEP FRIEDMAN MD Ot Z68.34 BODY MASS INDEX (BMI) 34.0-34.9, ADULT 04/27/2018 MANDEEP FRIEDMAN MD, Ot Z79.4 RETIREMENT (CURRENT) USE OF INSULIN 04/27/2018 MANDEEP FRIEDMAN MD, Ot Z79.82 RETIREMENT (CURRENT) USE OF ASPIRIN 04/27/2018 MANDEEP FRIEDMAN MD, Ot Z79.899 OTHER RETIREMENT (CURRENT) DRUG THERAPY 04/27/2018 MANDEEP FRIEDMAN MD, Ot Z95.5 PRESENCE OF CORONARY ANGIOPLASTY IMPLANT 04/27/2018 MANDEEP FRIEDMAN MD, Ot Z95.810 PRESENCE OF AUTOMATIC (IMPLANTABLE) CARD Procedures Code Description Performed By Performed On 60.29 01/27/2011 [id number] DRAINAGE OF RIGHT KNEE JOINT, PERCUTANEO 04/16/2018 [id number] EXCISION OF RIGHT KNEE JOINT, PERC ENDO 04/16/2018 Results Test Result Range Automated blood complete blood count (hemogram) panel - 11/11/16 07:35 Blood leukocytes automated count (number/volume) 5.8 10*3/uL 4.3-11.0 Blood erythrocytes automated count (number/volume) 4.65 10*6/uL 4.35-5.85 Venous blood hemoglobin measurement (mass/volume) 14.8 g/dL 13.3-17.7 Blood hematocrit (volume fraction) 44 % 40-54 Automated erythrocyte mean corpuscular volume 94 [foz_us] 80-99 Automated erythrocyte mean corpuscular hemoglobin (mass per erythrocyte) 32 pg 25-34 Automated erythrocyte mean corpuscular hemoglobin concentration measurement ( mass/volume) 34 g/dL 32-36 Automated erythrocyte distribution width ratio 13.2 % 10.0-14.5 Automated blood platelet count (count/volume) 174 10*3/uL 130-400 Automated blood platelet mean volume measurement 9.4 [foz_us] 7.4-10.4 PT panel in platelet poor plasma by coagulation assay - 11/11/16 07:35 Prothrombin time (PT) in platelet poor plasma by coagulation assay 12.9 s 12.2-14.7 INR in platelet poor plasma or blood by coagulation assay 1.0 0.8-1.4 Activated partial thromboplastin time (aPTT) in platelet poor plasma bycoagulation assay - 11/11/16 07:35 Activated partial thromboplastin time (aPTT) in platelet poor plasma bycoagulation assay 29 s 24-35 Comprehensive metabolic panel - 11/11/16 07:35 Serum or plasma sodium measurement (moles/volume) 137 mmol/L 135-145 Serum or plasma potassium measurement (moles/volume) 4.4 mmol/L 3.6-5.0 Serum or plasma chloride measurement (moles/volume) 106 mmol/L 98-107 Carbon dioxide 21 mmol/L 21-32 Serum or plasma anion gap determination (moles/volume) 10 mmol/L 5-14 Serum or plasma urea nitrogen measurement (mass/volume) 17 mg/dL 7-18 Serum or plasma creatinine measurement (mass/volume) 1.11 mg/dL 0.60-1.30 Serum or plasma urea nitrogen/creatinine mass ratio 15 NRG Serum or plasma creatinine measurement with calculation of estimated glomerular filtration rate > NRG Serum or plasma glucose measurement (mass/volume) 165 mg/dL 70-105 Serum or plasma calcium measurement (mass/volume) 9.7 mg/dL 8.5-10.1 Serum or plasma total bilirubin measurement (mass/volume) 0.9 mg/dL 0.1-1.0 Serum or plasma alkaline phosphatase measurement (enzymatic activity/volume) 92 U/L 40-136 Serum or plasma aspartate aminotransferase measurement (enzymatic activity/ volume) 17 U/L 5-34 Serum or plasma alanine aminotransferase measurement (enzymatic activity/volume ) 18 U/L 0-55 Serum or plasma protein measurement (mass/volume) 6.4 g/dL 6.4-8.2 Serum or plasma albumin measurement (mass/volume) 4.0 g/dL 3.2-4.5 Lipid 1996 panel - 11/11/16 07:35 Serum or plasma triglyceride measurement (mass/volume) 111 mg/dL <150 Serum or plasma cholesterol measurement (mass/volume) 141 mg/dL < 200 Serum or plasma cholesterol in HDL measurement (mass/volume) 36 mg/ dL 40-60 Cholesterol in LDL [mass/volume] in serum or plasma by direct assay 93 mg/dL 1-129 Serum or plasma cholesterol in VLDL measurement (mass/volume) 22 mg/ dL 5-40 Methicillin resistant Staphylococcus aureus (MRSA) screening culture - 07:35 Methicillin resistant Staphylococcus aureus (MRSA) screening culture NEG NRG Capillary blood glucose measurement by glucometer (mass/volume) - 11/11/16 09: 53 Capillary blood glucose measurement by glucometer (mass/volume) 145 mg/dL 70-110 Methicillin resistant Staphylococcus aureus (MRSA) screening culture - 10:28 Methicillin resistant Staphylococcus aureus (MRSA) screening culture NEG NRG Complete blood count (CBC) with automated white blood cell (WBC) differential - 03/20/17 10:30 Blood leukocytes automated count (number/volume) 5.9 10*3/uL 4.3-11.0 Blood erythrocytes automated count (number/volume) 4.45 10*6/uL 4.35-5.85 Venous blood hemoglobin measurement (mass/volume) 14.1 g/dL 13.3-17.7 Blood hematocrit (volume fraction) 42 % 40-54 Automated erythrocyte mean corpuscular volume 95 [foz_us] 80-99 Automated erythrocyte mean corpuscular hemoglobin (mass per erythrocyte) 32 pg 25-34 Automated erythrocyte mean corpuscular hemoglobin concentration measurement ( mass/volume) 33 g/dL 32-36 Automated erythrocyte distribution width ratio 13.1 % 10.0-14.5 Automated blood platelet count (count/volume) 155 10*3/uL 130-400 Automated blood platelet mean volume measurement 9.4 [foz_us] 7.4-10.4 Automated blood neutrophils/100 leukocytes 71 % 42-75 Automated blood lymphocytes/100 leukocytes 20 % 12-44 Blood monocytes/100 leukocytes 8 % 0-12 Automated blood eosinophils/100 leukocytes 1 % 0-10 Automated blood basophils/100 leukocytes 1 % 0-10 Blood neutrophils automated count (number/volume) 4.1 10*3 1.8-7.8 Blood lymphocytes automated count (number/volume) 1.1 10*3 1.0-4.0 Blood monocytes automated count (number/volume) 0.5 10*3 0.0-1.0 Automated eosinophil count 0.1 10*3/uL 0.0-0.3 Automated blood basophil count (count/volume) 0.0 10*3/uL 0.0-0.1 Whole blood basic metabolic panel - 03/20/17 10:30 Serum or plasma sodium measurement (moles/volume) 136 mmol/L 135-145 Serum or plasma potassium measurement (moles/volume) 4.1 mmol/L 3.6-5.0 Serum or plasma chloride measurement (moles/volume) 105 mmol/L 98-107 Carbon dioxide 22 mmol/L 21-32 Serum or plasma anion gap determination (moles/volume) 9 mmol/L 5-14 Serum or plasma urea nitrogen measurement (mass/volume) 14 mg/dL 7-18 Serum or plasma creatinine measurement (mass/volume) 1.17 mg/dL 0.60-1.30 Serum or plasma urea nitrogen/creatinine mass ratio 12 NRG Serum or plasma creatinine measurement with calculation of estimated glomerular filtration rate 59 NRG Serum or plasma glucose measurement (mass/volume) 228 mg/dL 70-105 Serum or plasma calcium measurement (mass/volume) 9.5 mg/dL 8.5-10.1 Capillary blood glucose measurement by glucometer (mass/volume) - 03/26/17 09: 03 Capillary blood glucose measurement by glucometer (mass/volume) 147 mg/dL 70-110 Capillary blood glucose measurement by glucometer (mass/volume) - 03/26/17 16: 31 Capillary blood glucose measurement by glucometer (mass/volume) 179 mg/dL 70-110 Capillary blood glucose measurement by glucometer (mass/volume) - 03/26/17 20: 33 Capillary blood glucose measurement by glucometer (mass/volume) 157 mg/dL 70-110 Capillary blood glucose measurement by glucometer (mass/volume) - 03/27/17 06: 11 Capillary blood glucose measurement by glucometer (mass/volume) 144 mg/dL 70-110 Capillary blood glucose measurement by glucometer (mass/volume) - 03/27/17 10: 42 Capillary blood glucose measurement by glucometer (mass/volume) 196 mg/dL 70-110 Body fluid cell count - 04/16/18 11:15 Specimen source identification of body fluid SYNOVIAL NRG Evaluation of color of body fluid YELLOW NRG Determination of appearance of body fluid MKD CLDY NRG Body fluid leukocytes count (number/volume) 66058 /uL NRG Body fluid erythrocytes count (number/volume) 6000 /uL NRG Manual body fluid polymorphonuclear cells/100 leukocytes 96 % NRG Manual body fluid mononuclear cells/100 leukocytes 2 % NRG Manual body fluid lymphocytes/100 leukocytes 2 % NRG Other cells/100 leukocytes in body fluid by manual count 0 % NRG * Body fluid crystals type by light microscopy - 04/16/18 11:15 * Body fluid crystals type by light microscopy NOT SEEN NRG Gram stain microscopy - 04/16/18 11:15 Gram stain microscopy 13:42 NRG Bacterial body fluid culture - 04/16/18 11:15 Bacterial body fluid culture NG NRG Complete blood count (CBC) with automated white blood cell (WBC) differential - 04/16/18 13:03 Blood leukocytes automated count (number/volume) 7.9 10*3/uL 4.3-11.0 Blood erythrocytes automated count (number/volume) 4.28 10*6/uL 4.35-5.85 Venous blood hemoglobin measurement (mass/volume) 14.1 g/dL 13.3-17.7 Blood hematocrit (volume fraction) 40 % 40-54 Automated erythrocyte mean corpuscular volume 94 [foz_us] 80-99 Automated erythrocyte mean corpuscular hemoglobin (mass per erythrocyte) 33 pg 25-34 Automated erythrocyte mean corpuscular hemoglobin concentration measurement ( mass/volume) 35 g/dL 32-36 Automated erythrocyte distribution width ratio 14.0 % 10.0-14.5 Automated blood platelet count (count/volume) 189 10*3/uL 130-400 Automated blood platelet mean volume measurement 8.9 [foz_us] 7.4-10.4 Automated blood neutrophils/100 leukocytes 88 % 42-75 Automated blood lymphocytes/100 leukocytes 6 % 12-44 Blood monocytes/100 leukocytes 5 % 0-12 Automated blood eosinophils/100 leukocytes 1 % 0-10 Automated blood basophils/100 leukocytes 1 % 0-10 Blood neutrophils automated count (number/volume) 6.9 10*3 1.8-7.8 Blood lymphocytes automated count (number/volume) 0.5 10*3 1.0-4.0 Blood monocytes automated count (number/volume) 0.4 10*3 0.0-1.0 Automated eosinophil count 0.1 10*3/uL 0.0-0.3 Automated blood basophil count (count/volume) 0.0 10*3/uL 0.0-0.1 Blood lactic acid measurement (moles/volume) - 04/16/18 13:03 Blood lactic acid measurement (moles/volume) 1.09 mmol/L 0.50-2.00 Comprehensive metabolic panel - 04/16/18 13:03 Serum or plasma sodium measurement (moles/volume) 136 mmol/L 135-145 Serum or plasma potassium measurement (moles/volume) 4.4 mmol/L 3.6-5.0 Serum or plasma chloride measurement (moles/volume) 106 mmol/L 98-107 Carbon dioxide 23 mmol/L 21-32 Serum or plasma anion gap determination (moles/volume) 7 mmol/L 5-14 Serum or plasma urea nitrogen measurement (mass/volume) 20 mg/dL 7-18 Serum or plasma creatinine measurement (mass/volume) 0.82 mg/dL 0.60-1.30 Serum or plasma urea nitrogen/creatinine mass ratio 24 NRG Serum or plasma creatinine measurement with calculation of estimated glomerular filtration rate > NRG Serum or plasma glucose measurement (mass/volume) 112 mg/dL 70-105 Serum or plasma calcium measurement (mass/volume) 10.2 mg/dL 8.5-10.1 Serum or plasma total bilirubin measurement (mass/volume) 1.1 mg/dL 0.1-1.0 Serum or plasma alkaline phosphatase measurement (enzymatic activity/volume) 78 U/L 40-136 Serum or plasma aspartate aminotransferase measurement (enzymatic activity/ volume) 15 U/L 5-34 Serum or plasma alanine aminotransferase measurement (enzymatic activity/volume ) 14 U/L 0-55 Serum or plasma protein measurement (mass/volume) 6.1 g/dL 6.4-8.2 Serum or plasma albumin measurement (mass/volume) 3.8 g/dL 3.2-4.5 Serum or plasma C reactive protein measurement (mass/volume) - 04/16/18 13:03 Serum or plasma C reactive protein measurement (mass/volume) 10.07 mg/dL 0.00-0.50 Blood manual differential performed detection - 04/16/18 13:03 Blood monocytes/100 leukocytes 2 % NRG Manual blood segmented neutrophils/100 leukocytes 88 % NRG Blood band neutrophils/100 leukocytes 0 % NRG Manual blood lymphocytes/100 leukocytes 7 % NRG Manual eosinophils/100 leukocytes in nose 2 % NRG Manual blood basophils/100 leukocytes 1 % NRG Blood erythrocyte morphology finding identification NORMAL NRG Erythrocyte sedimentation rate by westergren method - 04/16/18 13:03 Erythrocyte sedimentation rate by westergren method 21 mm 0-30 Bacterial blood culture - 04/16/18 13:03 Bacterial blood culture NG NRG Bacterial blood culture - 04/16/18 13:15 Bacterial blood culture NG NRG Body fluid cell count - 04/16/18 14:11 Specimen source identification of body fluid SYNOVIAL NRG Evaluation of color of body fluid YELLOW NRG Determination of appearance of body fluid MKD CLDY NRG Body fluid leukocytes count (number/volume) 23030 /uL NRG Body fluid erythrocytes count (number/volume) 88669 /uL NRG Manual body fluid polymorphonuclear cells/100 leukocytes 98 % NRG Manual body fluid mononuclear cells/100 leukocytes 1 % NRG Manual body fluid lymphocytes/100 leukocytes 1 % NRG Other cells/100 leukocytes in body fluid by manual count 0 % NRG * Body fluid crystals type by light microscopy - 04/16/18 14:11 * Body fluid crystals type by light microscopy NOT SEEN NRG Bacteria identification in isolate by anaerobe culture - 04/16/18 14:11 Bacteria identification in isolate by anaerobe culture NG NRG Gram stain microscopy - 04/16/18 14:11 GRAM STAIN RESULT NUMEROUS WBC'S, NO BACTERIA OBSERVED NRG Bacteria identification in wound by culture - 04/16/18 14:11 Bacteria identification in wound by culture NG NRG Capillary blood glucose measurement by glucometer (mass/volume) - 04/16/18 16: 43 Capillary blood glucose measurement by glucometer (mass/volume) 125 mg/dL 70-110 Capillary blood glucose measurement by glucometer (mass/volume) - 04/16/18 21: 06 Capillary blood glucose measurement by glucometer (mass/volume) 167 mg/dL 70-110 Automated blood complete blood count (hemogram) panel - 04/17/18 04:44 Blood leukocytes automated count (number/volume) 5.8 10*3/uL 4.3-11.0 Blood erythrocytes automated count (number/volume) 3.88 10*6/uL 4.35-5.85 Venous blood hemoglobin measurement (mass/volume) 12.2 g/dL 13.3-17.7 Blood hematocrit (volume fraction) 37 % 40-54 Automated erythrocyte mean corpuscular volume 96 [foz_us] 80-99 Automated erythrocyte mean corpuscular hemoglobin (mass per erythrocyte) 31 pg 25-34 Automated erythrocyte mean corpuscular hemoglobin concentration measurement ( mass/volume) 33 g/dL 32-36 Automated erythrocyte distribution width ratio 14.2 % 10.0-14.5 Automated blood platelet count (count/volume) 163 10*3/uL 130-400 Automated blood platelet mean volume measurement 9.4 [foz_us] 7.4-10.4 Comprehensive metabolic panel - 04/17/18 04:44 Serum or plasma sodium measurement (moles/volume) 134 mmol/L 135-145 Serum or plasma potassium measurement (moles/volume) 4.5 mmol/L 3.6-5.0 Serum or plasma chloride measurement (moles/volume) 105 mmol/L 98-107 Carbon dioxide 20 mmol/L 21-32 Serum or plasma anion gap determination (moles/volume) 9 mmol/L 5-14 Serum or plasma urea nitrogen measurement (mass/volume) 18 mg/dL 7-18 Serum or plasma creatinine measurement (mass/volume) 0.79 mg/dL 0.60-1.30 Serum or plasma urea nitrogen/creatinine mass ratio 23 NRG Serum or plasma creatinine measurement with calculation of estimated glomerular filtration rate > NRG Serum or plasma glucose measurement (mass/volume) 134 mg/dL 70-105 Serum or plasma calcium measurement (mass/volume) 9.2 mg/dL 8.5-10.1 Serum or plasma total bilirubin measurement (mass/volume) 1.0 mg/dL 0.1-1.0 Serum or plasma alkaline phosphatase measurement (enzymatic activity/volume) 64 U/L 40-136 Serum or plasma aspartate aminotransferase measurement (enzymatic activity/ volume) 14 U/L 5-34 Serum or plasma alanine aminotransferase measurement (enzymatic activity/volume ) 11 U/L 0-55 Serum or plasma protein measurement (mass/volume) 4.8 g/dL 6.4-8.2 Serum or plasma albumin measurement (mass/volume) 3.2 g/dL 3.2-4.5 Capillary blood glucose measurement by glucometer (mass/volume) - 04/17/18 05: 36 Capillary blood glucose measurement by glucometer (mass/volume) 123 mg/dL 70-110 Capillary blood glucose measurement by glucometer (mass/volume) - 04/17/18 11: 06 Capillary blood glucose measurement by glucometer (mass/volume) 162 mg/dL 70-110 Capillary blood glucose measurement by glucometer (mass/volume) - 04/17/18 16: 13 Capillary blood glucose measurement by glucometer (mass/volume) 159 mg/dL 70-110 Capillary blood glucose measurement by glucometer (mass/volume) - 04/17/18 21: 01 Capillary blood glucose measurement by glucometer (mass/volume) 169 mg/dL 70-110 Vancomycin trough - 04/18/18 03:24 Vancomycin trough 11.6 ug/mL 10.0-20.0 Complete blood count (CBC) with automated white blood cell (WBC) differential - 04/18/18 03:27 Blood leukocytes automated count (number/volume) 3.7 10*3/uL 4.3-11.0 Blood erythrocytes automated count (number/volume) 3.87 10*6/uL 4.35-5.85 Venous blood hemoglobin measurement (mass/volume) 12.5 g/dL 13.3-17.7 Blood hematocrit (volume fraction) 37 % 40-54 Automated erythrocyte mean corpuscular volume 95 [foz_us] 80-99 Automated erythrocyte mean corpuscular hemoglobin (mass per erythrocyte) 32 pg 25-34 Automated erythrocyte mean corpuscular hemoglobin concentration measurement ( mass/volume) 34 g/dL 32-36 Automated erythrocyte distribution width ratio 13.8 % 10.0-14.5 Automated blood platelet count (count/volume) 162 10*3/uL 130-400 Automated blood platelet mean volume measurement 9.4 [foz_us] 7.4-10.4 Automated blood neutrophils/100 leukocytes 69 % 42-75 Automated blood lymphocytes/100 leukocytes 19 % 12-44 Blood monocytes/100 leukocytes 8 % 0-12 Automated blood eosinophils/100 leukocytes 3 % 0-10 Automated blood basophils/100 leukocytes 1 % 0-10 Blood neutrophils automated count (number/volume) 2.5 10*3 1.8-7.8 Blood lymphocytes automated count (number/volume) 0.7 10*3 1.0-4.0 Blood monocytes automated count (number/volume) 0.3 10*3 0.0-1.0 Automated eosinophil count 0.1 10*3/uL 0.0-0.3 Automated blood basophil count (count/volume) 0.0 10*3/uL 0.0-0.1 Whole blood basic metabolic panel - 04/18/18 03:27 Serum or plasma sodium measurement (moles/volume) 137 mmol/L 135-145 Serum or plasma potassium measurement (moles/volume) 4.3 mmol/L 3.6-5.0 Serum or plasma chloride measurement (moles/volume) 106 mmol/L 98-107 Carbon dioxide 21 mmol/L 21-32 Serum or plasma anion gap determination (moles/volume) 10 mmol/L 5-14 Serum or plasma urea nitrogen measurement (mass/volume) 17 mg/dL 7-18 Serum or plasma creatinine measurement (mass/volume) 0.78 mg/dL 0.60-1.30 Serum or plasma urea nitrogen/creatinine mass ratio 22 NRG Serum or plasma creatinine measurement with calculation of estimated glomerular filtration rate > NRG Serum or plasma glucose measurement (mass/volume) 103 mg/dL 70-105 Serum or plasma calcium measurement (mass/volume) 9.4 mg/dL 8.5-10.1 Serum or plasma phosphate measurement (mass/volume) - 04/18/18 03:27 Serum or plasma phosphate measurement (mass/volume) 2.5 mg/dL 2.3-4.7 Magnesium - 04/18/18 03:27 Magnesium 1.9 mg/dL 1.8-2.4 Capillary blood glucose measurement by glucometer (mass/volume) - 04/18/18 13: 22 Capillary blood glucose measurement by glucometer (mass/volume) 139 mg/dL 70-110 Capillary blood glucose measurement by glucometer (mass/volume) - 04/18/18 16: 02 Capillary blood glucose measurement by glucometer (mass/volume) 218 mg/dL 70-110 Capillary blood glucose measurement by glucometer (mass/volume) - 04/18/18 21: 13 Capillary blood glucose measurement by glucometer (mass/volume) 169 mg/dL 70-110 Complete blood count (CBC) with automated white blood cell (WBC) differential - 04/19/18 03:05 Blood leukocytes automated count (number/volume) 5.2 10*3/uL 4.3-11.0 Blood erythrocytes automated count (number/volume) 3.91 10*6/uL 4.35-5.85 Venous blood hemoglobin measurement (mass/volume) 12.7 g/dL 13.3-17.7 Blood hematocrit (volume fraction) 37 % 40-54 Automated erythrocyte mean corpuscular volume 94 [foz_us] 80-99 Automated erythrocyte mean corpuscular hemoglobin (mass per erythrocyte) 32 pg 25-34 Automated erythrocyte mean corpuscular hemoglobin concentration measurement ( mass/volume) 35 g/dL 32-36 Automated erythrocyte distribution width ratio 13.8 % 10.0-14.5 Automated blood platelet count (count/volume) 178 10*3/uL 130-400 Automated blood platelet mean volume measurement 9.1 [foz_us] 7.4-10.4 Automated blood neutrophils/100 leukocytes 68 % 42-75 Automated blood lymphocytes/100 leukocytes 17 % 12-44 Blood monocytes/100 leukocytes 11 % 0-12 Automated blood eosinophils/100 leukocytes 4 % 0-10 Automated blood basophils/100 leukocytes 1 % 0-10 Blood neutrophils automated count (number/volume) 3.5 10*3 1.8-7.8 Blood lymphocytes automated count (number/volume) 0.9 10*3 1.0-4.0 Blood monocytes automated count (number/volume) 0.6 10*3 0.0-1.0 Automated eosinophil count 0.2 10*3/uL 0.0-0.3 Automated blood basophil count (count/volume) 0.0 10*3/uL 0.0-0.1 Whole blood basic metabolic panel - 04/19/18 03:05 Serum or plasma sodium measurement (moles/volume) 136 mmol/L 135-145 Serum or plasma potassium measurement (moles/volume) 4.0 mmol/L 3.6-5.0 Serum or plasma chloride measurement (moles/volume) 105 mmol/L 98-107 Carbon dioxide 21 mmol/L 21-32 Serum or plasma anion gap determination (moles/volume) 10 mmol/L 5-14 Serum or plasma urea nitrogen measurement (mass/volume) 16 mg/dL 7-18 Serum or plasma creatinine measurement (mass/volume) 0.77 mg/dL 0.60-1.30 Serum or plasma urea nitrogen/creatinine mass ratio 21 NRG Serum or plasma creatinine measurement with calculation of estimated glomerular filtration rate > NRG Serum or plasma glucose measurement (mass/volume) 116 mg/dL 70-105 Serum or plasma calcium measurement (mass/volume) 9.5 mg/dL 8.5-10.1 Lipid 1996 panel - 04/19/18 03:05 Serum or plasma triglyceride measurement (mass/volume) 90 mg/dL <150 Serum or plasma cholesterol measurement (mass/volume) 110 mg/dL < 200 Serum or plasma cholesterol in HDL measurement (mass/volume) 28 mg/ dL 40-60 Cholesterol in LDL [mass/volume] in serum or plasma by direct assay 72 mg/dL 1-129 Serum or plasma cholesterol in VLDL measurement (mass/volume) 18 mg/ dL 5-40 Capillary blood glucose measurement by glucometer (mass/volume) - 04/19/18 10: 36 Capillary blood glucose measurement by glucometer (mass/volume) 165 mg/dL 70-110 Complete blood count (CBC) with automated white blood cell (WBC) differential - 05/09/18 16:04 Blood leukocytes automated count (number/volume) 5.4 10*3/uL 4.3-11.0 Blood erythrocytes automated count (number/volume) 4.12 10*6/uL 4.35-5.85 Venous blood hemoglobin measurement (mass/volume) 13.2 g/dL 13.3-17.7 Blood hematocrit (volume fraction) 39 % 40-54 Automated erythrocyte mean corpuscular volume 95 [foz_us] 80-99 Automated erythrocyte mean corpuscular hemoglobin (mass per erythrocyte) 32 pg 25-34 Automated erythrocyte mean corpuscular hemoglobin concentration measurement ( mass/volume) 34 g/dL 32-36 Automated erythrocyte distribution width ratio 14.2 % 10.0-14.5 Automated blood platelet count (count/volume) 164 10*3/uL 130-400 Automated blood platelet mean volume measurement 9.0 [foz_us] 7.4-10.4 Automated blood neutrophils/100 leukocytes 75 % 42-75 Automated blood lymphocytes/100 leukocytes 15 % 12-44 Blood monocytes/100 leukocytes 8 % 0-12 Automated blood eosinophils/100 leukocytes 2 % 0-10 Automated blood basophils/100 leukocytes 1 % 0-10 Blood neutrophils automated count (number/volume) 4.1 10*3 1.8-7.8 Blood lymphocytes automated count (number/volume) 0.8 10*3 1.0-4.0 Blood monocytes automated count (number/volume) 0.4 10*3 0.0-1.0 Automated eosinophil count 0.1 10*3/uL 0.0-0.3 Automated blood basophil count (count/volume) 0.0 10*3/uL 0.0-0.1 Comprehensive metabolic panel - 05/09/18 16:04 Serum or plasma sodium measurement (moles/volume) 137 mmol/L 135-145 Serum or plasma potassium measurement (moles/volume) 4.2 mmol/L 3.6-5.0 Serum or plasma chloride measurement (moles/volume) 109 mmol/L 98-107 Carbon dioxide 21 mmol/L 21-32 Serum or plasma anion gap determination (moles/volume) 7 mmol/L 5-14 Serum or plasma urea nitrogen measurement (mass/volume) 21 mg/dL 7-18 Serum or plasma creatinine measurement (mass/volume) 0.86 mg/dL 0.60-1.30 Serum or plasma urea nitrogen/creatinine mass ratio 24 NRG Serum or plasma creatinine measurement with calculation of estimated glomerular filtration rate > NRG Serum or plasma glucose measurement (mass/volume) 139 mg/dL 70-105 Serum or plasma calcium measurement (mass/volume) 9.9 mg/dL 8.5-10.1 Serum or plasma total bilirubin measurement (mass/volume) 0.4 mg/dL 0.1-1.0 Serum or plasma alkaline phosphatase measurement (enzymatic activity/volume) 74 U/L 40-136 Serum or plasma aspartate aminotransferase measurement (enzymatic activity/ volume) 17 U/L 5-34 Serum or plasma alanine aminotransferase measurement (enzymatic activity/volume ) 14 U/L 0-55 Serum or plasma protein measurement (mass/volume) 5.8 g/dL 6.4-8.2 Serum or plasma albumin measurement (mass/volume) 3.6 g/dL 3.2-4.5 Encounters ACCT No. Visit Date/Time Discharge Status Pt. Type Provider Facility Loc./Unit Complaint [id number] 04/16/2018 13:27:00 04/19/2018 12:35:00 DIS Outpatient MANDEEP FRIEDMAN MD [facility] 4TH KNEE CLEAN OUT [id number] 04/08/2018 14:11:00 04/08/2018 23:59:59 CLS Outpatient JOE MORSE DO [facility] CARD LUMBAR RADICULOPATHY M54.16 [id number] 03/18/2018 10:32:00 03/18/2018 23:59:59 CLS Outpatient JOE MORSE DO [facility] RAD LUMBAR RADICULOPATHY [id number] 03/08/2018 14:04:00 03/08/2018 23:59:59 CLS Outpatient BOOM RITTER FACC, DELLA BENAVIDES CCDS [facility] PULM R06.02 SOB [id number] 2018 13:56:00 2018 15:21:00 DIS Outpatient JOE MORSE DO [facility] CARD M54.16 LUMBAR RADICULOPATHY [id number] 01/06/2018 10:52:00 02/02/2018 11:02:00 DIS Outpatient ROXANNA LY MD [facility] REHAB R LUMBAR RADICULOPATHY [id number] 01/27/2018 13:28:00 01/27/2018 23:59:59 CLS Outpatient JENNI RALPH BERTO [facility] CARD R06.09 SPIVEY [id number] 03/26/2017 08:46:00 03/27/2017 13:45:00 DIS Outpatient KATHRINE SMITH MD [facility] SDC LEFT INGUINAL HERNIA [id number] 03/20/2017 05:43:00 03/20/2017 10:30:00 DIS Outpatient KATHRINE SMITH MD [facility] PREOP LEFT INGUINAL HERNIA [id number] 02/25/2017 14:15:00 03/03/2017 13:55:00 DIS Outpatient ALEXANDRA SHAH DO [facility] REHAB ASH HIP PAIN; LOW BACK PAIN [id number] 12/10/2016 13:59:00 12/10/2016 23:59:59 CLS Outpatient FEDERICO JON MD [facility] RAD BILAT HYDROCELES [id number] 12/01/2016 13:54:00 12/01/2016 23:59:59 CLS Outpatient BOOM RITTER FACC, DELLA HAYDENP CCDS [facility] RT CAD,HTN,HLP [id number] 11/18/2016 10:16:00 11/18/2016 23:59:59 CLS Outpatient DELLA NUR MD, FACC FACP CCDS [facility] LAB I25.5,E78.5, I25.10 [id number] 11/11/2016 06:57:00 11/11/2016 14:15:00 DIS Outpatient DELLA NUR MD, FACC FACP CCDS [facility] CATH CAD,SOB, ANGINA,DM [id number] 10/21/2016 11:12:00 10/21/2016 23:59:59 CLS Outpatient DELLA NUR MD, FACC FACP CCDS [facility] RAD RIGHT LEG CLAUDICATION [id number] 11/23/2015 10:23:00 11/23/2015 13:45:00 DIS Outpatient ROXANNA YL MD [facility] LOWER GI BLEED [id number] 11/21/2015 05:37:00 11/21/2015 23:59:59 CLS Outpatient ROXANNA LY MD [facility] PREOP LOWER GI BLEED [id number] 05/02/2015 16:10:00 05/02/2015 23:59:59 CLS Outpatient NI DPMLARRY Q [facility] RAD SWELLING ,OSTEOLYLITIS, LESION TO LT 2ND [id number] 09/20/2014 11:02:00 09/20/2014 16:20:00 DIS Outpatient TERELL DHALIWAL MD [facility] SKIN LESIONS [id number] 09/15/2014 09:40:00 09/15/2014 23:59:59 CLS Outpatient TERELL DHALIWAL MD [facility] PREOP SKIN LESIONS [id number] 03/31/2014 08:49:00 03/31/2014 10:43:00 DIS Emergency RENE EDDY MD [facility] ER FALL/RIGHT FOOT PAIN [id number] 03/28/2014 19:36:00 03/28/2014 20:10:00 DIS Emergency MARI BRADY APRN [facility] ER R HAND PAIN [id number] 03/16/2013 15:55:00 03/16/2013 23:59:59 CLS Outpatient BOOM RITTER FACCDELLA FACP CCDS [facility] LAB HYPERTENSION [id number] 05/09/2018 16:19:00 Document Registration [id number] 11/25/2016 09:31:00 Document Registration [id number] 09/15/2012 00:00:00 Document Registration [id number] 08/26/2012 18:17:00 Document Registration [id number] 07/26/2012 09:56:00 Document Registration [id number] 07/13/2012 05:33:00 Document Registration [id number] 07/12/2012 08:53:00 Document Registration [id number] 06/16/2012 09:56:00 Document Registration [id number] 05/13/2012 15:59:00 Document Registration [id number] 05/10/2012 08:49:00 Document Registration [id number] 05/10/2012 08:43:00 Document Registration [id number] 11/07/2011 09:14:00 Document Registration [id number] 08/19/2011 05:33:00 Document Registration [id number] 08/18/2011 08:00:00 Document Registration [id number] 01/31/2011 08:59:00 Document Registration [id number] 01/27/2011 06:35:00 Document Registration [id number] 01/24/2011 11:35:00 Document Registration [id number] 01/17/2011 22:42:00 Document Registration [id number] 01/15/2011 17:20:00 Document Registration [id number] 01/09/2011 05:56:00 Document Registration [id number] 01/07/2011 13:59:00 Document Registration [id number] 05/02/2015 16:11:35 ACT Document Registration [id number] 06/23/2017 09:11:00 06/23/2017 23:59:00 DIS Outpatient RACHEL OWEN
== END 2018-05-09 16:42 | disposition home or self-care (01) ==
LOC: EDUNIT# 14:14 → ER 14:16
DX: K59.00 Constipation, unspecified (principal); I48.91 Unspecified atrial fibrillation; I10 Essential (primary) hypertension; K21.9 Gastro-esophageal reflux disease without esophagitis; E11.9 Type 2 diabetes mellitus without complications; Z95.5 Presence of coronary angioplasty implant and graft; Z88.0 Allergy status to penicillin; Z79.4 Long term (current) use of insulin; Z87.891 Personal history of nicotine dependence
CPT/HCPCS: 36415; 74022; 80053; 85025

== ENCOUNTER 2018-08-23 09:56 | Inpatient (IN) | payer MEDICARE, OTHER ==
[~2018-08-23] VITALS: Ht 180.3 cm; Wt 116.7 kg
[2018-08-23 10:21] LABS: BASOPHILS % (AUTO) 0 % (0-10); EOSINOPHILS # (AUTO) 0.1 10^3/uL (0.0-0.3); EOSINOPHILS % (AUTO) 1 % (0-10); HEMATOCRIT 40 % (40-54); LYMPHOCYTES # (AUTO) 0.9 X 10^3 (1.0-4.0); LYMPHOCYTES % (AUTO) 10 % (12-44); MEAN CORPUSCULAR HEMOGLOBIN 31 PG (25-34); MEAN CORPUSCULAR HGB CONC 33 G/DL (32-36); MEAN CORPUSCULAR VOLUME 94 FL (80-99); MEAN PLATELET VOLUME 9.5 FL (7.4-10.4); MONOCYTES # (AUTO) 0.8 X 10^3 (0.0-1.0); MONOCYTES % (AUTO) 9 % (0-12); NEUTROPHILS % (AUTO) 80 % (42-75); PLATELET COUNT 164 10^3/uL (130-400); RED BLOOD COUNT 4.21 10^6/uL (4.35-5.85); RED CELL DISTRIBUTION WIDTH 13.2 % (10.0-14.5); WHITE BLOOD COUNT 8.7 10^3/uL (4.3-11.0)
[2018-08-23 10:32] LABS: PROTHROMBIN TIME PATIENT 12.9 SEC (12.2-14.7)
[2018-08-23 10:35] LABS: ALANINE AMINOTRANSFERASE 15 U/L (0-55); ALBUMIN 3.8 GM/DL (3.2-4.5); ALKALINE PHOSPHATASE 70 U/L (40-136); BILIRUBIN,TOTAL 0.8 MG/DL (0.1-1.0); BUN/CREATININE RATIO 17; CALCIUM 9.8 MG/DL (8.5-10.1); CARBON DIOXIDE 21 MMOL/L (21-32); CHLORIDE 107 MMOL/L (98-107); CREATININE SERUM 0.87 MG/DL (0.60-1.30); GFR ESTIMATED > 60; GLUCOSE 111 MG/DL (70-105); MAGNESIUM 1.9 MG/DL (1.8-2.4); POTASSIUM 4.1 MMOL/L (3.6-5.0); SODIUM 138 MMOL/L (135-145); TOTAL PROTEIN 6.3 GM/DL (6.4-8.2)
[2018-08-23 10:42] LABS: MYOGLOBIN SERUM 37.2 NG/ML (10.0-92.0)
--- NOTE | 2018-08-23 10:50 | Diagnostic Imaging Report ---
INDICATION: Chest pain Portable chest at 11:38 AM There is a dual-chamber pacemaker. Heart size and pulmonary vascularity are normal. Lungs are clear. There are no effusions or pneumothoraces. IMPRESSION: Negative chest. Dictated by: Dictated on workstation # [id number]
[2018-08-23] MEDS ORDERED: NS 250 ML (IVPB) BAG IV ONE (11:00)
[2018-08-23] MEDS ORDERED: RECEIVED CONTRAST (Hold Metformin) IV SCH (11:00)
[2018-08-23] MEDS ORDERED: IOHEXOL 350 MG/ML 150 ML (OMNIPAQUE 350) VIAL IV ONE (11:00)
--- NOTE | 2018-08-23 11:22 | Diagnostic Imaging Report ---
PROCEDURE: CT angiography of the chest with contrast. TECHNIQUE: Multiple contiguous axial images were obtained through the chest after uneventful bolus administration of intravenous contrast. 2D reconstructed CTA MIP acquisitions were also performed. INDICATION: Chest pain. FINDINGS: There is some calcification of the origin of the left subclavian artery. The brachiocephalic origins are otherwise normal. The ascending aorta appears normal. The descending thoracic aorta has minimal atherosclerotic plaque. There is no aneurysm or dissection. There is moderate coronary atherosclerosis. There is a small pericardial effusion. There are no pulmonary emboli. There is no hilar or mediastinal lymphadenopathy. There is a dual-chamber pacemaker. IMPRESSION: Coronary and aortic atherosclerosis. Small pericardial effusion. Incidentally noted are stones in the gallbladder. Dictated by: Dictated on workstation # [id number]
[2018-08-23] MEDS ORDERED: HEParin DRIP 25000 UNIT/500ML 500 ML IV ONE (11:43)
[2018-08-23] MEDS ORDERED: HEParin 1000 UNIT/ML (10ML VIAL) FOR BOLUS IV ONE (11:45)
[2018-08-23] MEDS ORDERED: CLOPIDOGREL 300 MG (PLAVIX) TABLET PO ONE (11:45)
--- NOTE | 2018-08-23 12:16 | ED Chest Pain ---
General Chief Complaint: Chest Pain Stated Complaint: CP Nursing Triage Note: PT BROUGHT IN BY EMS WITH COMPLAINT OF CHEST PAIN THAT STARTED AROUND 7 AM. PT STATES HE TOOK 3 NITROS IN ROUGHLY 30 MINUTE INCREMENTS AT HOME. PT WAS GIVEN ANOTHER NITRO AND 324 OF ASPIRIN BY EMS. Nursing Sepsis Screen: No Definite Risk Source: patient, old records Exam Limitations: no limitations History of Present Illness Date Seen by Provider: Aug 23, 2018 Time Seen by Provider: 10:00 Initial Comments Patient presents via EMS with onset of severe chest pain starting this morning that radiated into his arms and his upper abdomen. Pain improved significantly after he took 4 nitroglycerin prior to arrival. He has known history of coronary artery disease. Cardiac catheterization performed at this facility in October 2016 showed patent stents in the RCA. Patient does have history of ischemic cardiomyopathy with a reduced ejection fraction of 40-45 percent. His primary programmer engineering and scientific is Dr. Pineda his primary care providers Dr. Vidal. He rates his pain as mild (5/10) at this time. Patient also reports he has some right calf pain. Allergies and Home Medications Allergies Coded Allergies: Penicillins (Verified Allergy, Mild, 11/23/15) Home Medications Ascorbic Acid 500 Mg Tablet, 500 MG PO DAILY, (Reported) Brimonidine Tartrate 10 Ml Drops, 1 DROP OU BID, (Reported) one drop both eyes bid Cholecalciferol 1,000 Unit Capsule, 1,000 UNIT PO DAILY, (Reported) Clindamycin HCl 300 Mg Capsule, 300 MG PO TID Prescribed by: ALEX JACK on 04/19/18 1039 Fluoxetine HCl 20 Mg Tablet, 20 MG PO BID, (Reported) Furosemide 40 Mg Tablet, 40 MG PO DAILY, (Reported) Hydrocodone/Acetaminophen 1 Each Tablet, 1-2 EACH PO Q4H Prescribed by: KATHRINE SMITH on 03/26/17 1441 Insulin Detemir 100 Unit/1 Ml Insuln.pen, 30 UNIT SQ BID, (Reported) Naproxen 500 Mg Tablet, 500 MG PO NEEDED PRN for PAIN-MILD, (Reported) Nitroglycerin 0.4 Mg Subl, 0.4 MG SL PRN, (Reported) Pravastatin Sodium 20 Mg Tablet, 20 MG PO HS, (Reported) Ramipril 2.5 Mg Capsule, 2.5 MG PO DAILY, (Reported) Patient Home Medication List Home Medication List Reviewed: Yes Review of Systems Review of Systems Constitutional: no symptoms reported EENTM: No Symptoms Reported Respiratory: No Symptoms Reported Cardiovascular: See HPI Gastrointestinal: No Symptoms Reported Genitourinary: No Symptoms Reported Musculoskeletal: no symptoms reported Skin: no symptoms reported Psychiatric/Neurological: No Symptoms Reported Endocrine: No Symptoms Reported Hematologic/Lymphatic: No Symptoms Reported Past Agnkrdx-Mydayn-Rwkzid Hx Past Med/Social Hx: Reviewed and Corrections made Patient Social History Alcohol Use: Denies Use Recreational Drug Use: No Smoking Status: Former Smoker Former Smoker, Quit: Apr 16, 1971 2nd Hand Smoke Exposure: No Recent Foreign Travel: No Contact w/Someone Who Travel: No Recent Infectious Disease Expo: No Recent Hopitalizations: No Immunizations Up To Date Tetanus Booster (TDap): Unknown Date of Pneumonia Vaccine: Jul 26, 2015 Date of Influenza Vaccine: Jul 26, 2015 Seasonal Allergies Seasonal Allergies: No Past Medical History Surgeries: Yes (hernia repair, TURP, GROIN RUPTURE REPAIR, EAR LESION REMOVAL, ) Coronary Stent, Defibrillator, Vascular Surgery (lower extremity stent) Respiratory: Yes Sleep Apnea Currently Using CPAP: Yes Cardiac: Yes (defib-medtronic) Atrial Fibrillation, Cardiomyopathy, Coronary Artery Disease, Hypertension Neurological: Yes Neuropathy Reproductive Disorders: No Sexually Transmitted Disease: No Genitourinary: Yes (incontinence) Renal Failure Gastrointestinal: Yes Gastroesophageal Reflux Musculoskeletal: Yes Arthritis, Gout Endocrine: Yes Diabetes, Insulin dep HEENT: No Hearing Impairment: Bilateral Hearing Aide Cancer: No Psychosocial: No Integumentary: No Blood Disorders: No Family Medical History Reviewed Nursing Family Hx Diabetes Physical Exam Vital Signs Vital Signs - First Documented 08/23/18 09:57 Temp 98.2 Pulse 79 Resp 21 B/P (MAP) 117/73 (88) O2 Delivery Room Air Capillary Refill : Less Than 3 Seconds Height, Weight, BMI Height: 5'11.00" Weight: 242lbs. 6.4oz. 109.747102ms; 34.7 BMI Method:Stated General Appearance: No Apparent Distress, WD/WN HEENT: PERRL/EOMI, Normal ENT Inspection Neck: Normal Inspection Respiratory: Chest Non Tender, Lungs Clear, Normal Breath Sounds, No Accessory Muscle Use, No Respiratory Distress Cardiovascular: Regular Rate, Rhythm, No Edema, No Murmur Gastrointestinal: Normal Bowel Sounds, Soft, Tenderness (slight tenderness in the epigastrium) Extremity: Normal Inspection, No Pedal Edema, Calf Tenderness (right calf), Other (positive Day[place] on the right) Neurologic/Psychiatric: Alert, Oriented x3, No Motor/Sensory Deficits, Normal Mood/Affect, bilingual instructor II-XII Norm as Tested Skin: Normal Color, Warm/Dry Progress/Results/Core Measures Results/Orders Lab Results Laboratory Tests Test 08/23/18 10:09 Range/Units White Blood Count 8.7 4.3-11.0 10^3/uL Red Blood Count 4.21 L 4.35-5.85 10^6/uL Hemoglobin 13.0 L 13.3-17.7 G/DL Hematocrit 40 40-54 % Mean Corpuscular Volume 94 80-99 FL Mean Corpuscular Hemoglobin 31 25-34 PG Mean Corpuscular Hemoglobin Concent 33 32-36 G/DL Red Cell Distribution Width 13.2 10.0-14.5 % Platelet Count 164 130-400 10^3/uL Mean Platelet Volume 9.5 7.4-10.4 FL Neutrophils (%) (Auto) 80 H 42-75 % Lymphocytes (%) (Auto) 10 L 12-44 % Monocytes (%) (Auto) 9 0-12 % Eosinophils (%) (Auto) 1 0-10 % Basophils (%) (Auto) 0 0-10 % Neutrophils # (Auto) 7.0 1.8-7.8 X 10^3 Lymphocytes # (Auto) 0.9 L 1.0-4.0 X 10^3 Monocytes # (Auto) 0.8 0.0-1.0 X 10^3 Eosinophils # (Auto) 0.1 0.0-0.3 10^3/uL Basophils # (Auto) 0.0 0.0-0.1 10^3/uL Prothrombin Time 12.9 12.2-14.7 SEC INR Comment 1.0 0.8-1.4 Activated Partial Thromboplast Time 27 24-35 SEC D-Dimer 2.76 H 0.00-0.49 UG/ML Sodium Level 138 135-145 MMOL/L Potassium Level 4.1 3.6-5.0 MMOL/L Chloride Level 107 98-107 MMOL/L Carbon Dioxide Level 21 21-32 MMOL/L Anion Gap 10 5-14 MMOL/L Blood Urea Nitrogen 15 7-18 MG/DL Creatinine 0.87 0.60-1.30 MG/DL Estimat Glomerular Filtration Rate > 60 BUN/Creatinine Ratio 17 Glucose Level 111 H 70-105 MG/DL Calcium Level 9.8 8.5-10.1 MG/DL Corrected Calcium 10.0 8.5-10.1 MG/DL Magnesium Level 1.9 1.8-2.4 MG/DL Total Bilirubin 0.8 0.1-1.0 MG/DL Aspartate Amino Transf (AST/SGOT) 17 5-34 U/L Alanine Aminotransferase (ALT/SGPT) 15 0-55 U/L Alkaline Phosphatase 70 40-136 U/L Myoglobin 37.2 10.0-92.0 NG/ML Troponin I < 0.30 <0.30 NG/ML B-Type Natriuretic Peptide 46.1 <100.0 PG/ML Total Protein 6.3 L 6.4-8.2 GM/DL Albumin 3.8 3.2-4.5 GM/DL Lipase 9 8-78 U/L My Orders Orders - GIO AGUIAR MD Cbc With Automated Diff (08/23/18 10:15) Magnesium (08/23/18 10:15) Chest 1 View, Ap/Pa Only (08/23/18 10:15) Ekg Tracing (08/23/18 10:15) Cardiac Profile 1 (08/23/18 10:15) Comprehensive Metabolic Panel (08/23/18 10:15) Myoglobin Serum (08/23/18 10:15) Protime With Inr (08/23/18 10:15) Partial Thromboplastin Time (08/23/18 10:15) O2 (08/23/18 10:15) Monitor-Rhythm Ecg Trace Only (08/23/18 10:15) Lipid Panel (08/24/18 06:00) Saline Lock/Iv-Start (08/23/18 10:15) BNP (08/23/18 10:15) Fibrin Degradation Products (08/23/18 10:15) Ct Angio Chest W (08/23/18 10:48) Iohexol Injection (Omnipaque 350 Mg/Ml 1 (08/23/18 11:00) Contrast Received (Contrast Received) (08/23/18 11:00) Ns (Ivpb) (Sodium Chloride 0.9%) (08/23/18 11:00) Clopidogrel Tablet (Plavix Tablet) (08/23/18 11:45) Heparin Drip 99087 Unit/500ml (Heparin (08/23/18 11:43) Heparin (Bolus Per Protocol) (Heparin (B (08/23/18 11:45) Lipase (08/23/18 12:03) Troponin I (08/23/18 15:00) Medications Given in ED Current Medications Medications Dose Ordered Sig/Yunior Route Start Time Stop Time Status Last Admin Dose Admin Clopidogrel Bisulfate 600 mg ONCE ONCE PO 08/23/18 11:45 08/23/18 11:46 DC 08/23/18 12:27 600 MG Iohexol 150 ml ONCE ONCE IV 08/23/18 11:00 08/23/18 11:01 DC 08/23/18 11:03 140 ML Sodium Chloride 250 ml ONCE ONCE IV 08/23/18 11:00 08/23/18 11:01 DC 08/23/18 11:03 80 ML Vital Signs/I&O 08/23/18 09:57 Temp 98.2 Pulse 79 Resp 21 B/P (MAP) 117/73 (88) O2 Delivery Room Air Blood Pressure Mean: 88 Progress Progress Note : Progress Note D-dimer was elevated. CT angiogram revealed no acute pathology to explain his pain. Case was discussed with Dr. Hadring who requested Plavix 600 mg be given now along with initiation of a heparin drip. Patient received aspirin 324 mg by EMS. Patient continued to have mild chest pain throughout his ER stay but did not require pain medications. Ultrasounds of the right lower extremity and of the gallbladder will be obtained for further evaluation of both the elevated d-dimer and incidental gallstones noted on the CT angiogram of the chest. Initial ECG Impression Date: Aug 23, 2018 Initial ECG Impression Time: 10:06 Initial ECG Rate: 77 Comment AV dual paced rhythm with no acute ST elevation or depression. Diagnostic Imaging Diagonstic Imaging: CT Plain Films/CT/US/NM/MRI: chest Comments NAME: ALEXANDRA WILKES [facility] REC#: [id number] PT STATUS: REG ER : 1930 PHYSICIAN: GIO AGUIAR MD ADMIT DATE: 08/23/18/ER Signed Date of Exam: 08/23/18 CT ANGIO CHEST W PROCEDURE: CT angiography of the chest with contrast. TECHNIQUE: Multiple contiguous axial images were obtained through the chest after uneventful bolus administration of intravenous contrast. 2D reconstructed CTA MIP acquisitions were also performed. INDICATION: Chest pain. FINDINGS: There is some calcification of the origin of the left subclavian artery. The brachiocephalic origins are otherwise normal. The ascending aorta appears normal. The descending thoracic aorta has minimal atherosclerotic plaque. There is no aneurysm or dissection. There is moderate coronary atherosclerosis. There is a small pericardial effusion. There are no pulmonary emboli. There is no hilar or mediastinal lymphadenopathy. There is a dual-chamber pacemaker. IMPRESSION: Coronary and aortic atherosclerosis. Small pericardial effusion. Incidentally noted are stones in the gallbladder. Dictated by: Dictated on workstation # [id number] Dict: 08/23/18 1116 Trans: 08/23/181155 Interpreted by: SUNDAY HAN MD Electronically signed by: SUNDAY HAN MD 08/23/18 115 Reviewed: Reviewed by Id Diagonstic Imaging: Xray Plain Films/CT/US/NM/MRI: chest Comments NAME: ALEXANDRA WILKES [facility] REC#: [id number] PT STATUS: REG ER : 1930 PHYSICIAN: GIO AGUIAR MD ADMIT DATE: 08/23/18/ER Signed Date of Exam: 08/23/18 CHEST 1 VIEW, AP/PA ONLY INDICATION: Chest pain Portable chest at 11:38 AM There is a dual-chamber pacemaker. Heart size and pulmonary vascularity are normal. Lungs are clear. There are no effusions or pneumothoraces. IMPRESSION: Negative chest. Dictated by: Dictated on workstation # [id number] Dict: 08/23/18 1047 Trans: 08/23/18 115 Interpreted by: SUNDAY HAN MD Electronically signed by: SUNDAY HAN MD 08/23/18 1156 Departure Communication (Admissions) Time/Spoke to Admitting Phy: 12:05 Dr. Zayas Time/Spoke to Consulting Phy: 11:42 Dr. Harding on behalf of Dr. Pineda Impression Primary Impression: Chest pain Qualified Codes: R07.9 - Chest pain, unspecified Additional Impressions: CAD (coronary artery disease) Qualified Codes: I25.10 - Atherosclerotic heart disease of [place] coronary artery without angina pectoris Cholelithiasis Qualified Codes: K80.81 - Other cholelithiasis with obstruction Disposition: 09 ADMITTED INPATIENT Condition: Improved Admissions Decision to Admit Reason: Admit from ER (General) Decision to Admit/Date: Aug 23, 2018 Time/Decision to Admit Time: 11:42 Departure-Patient Inst. Referrals: ROXANNA VIDAL MD (PCP/Family) Primary Care Physician GIO AGUIAR MD Aug 23, 2018 12:16
--- OUTSIDE RECORDS SUMMARY | 2018-08-23 13:23 | XMS REPORT | Continuity of Care Document ---
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 DIS NEC 08/20/2011 Ot 428.0 CONGESTIVE HEART FAILURE NOS 07/13/2012 Ot 272.4 HYPERLIPIDEMIA NEC/NOS 07/13/2012 Ot 278.00 OBESITY, NOS 07/13/2012 Ot 401.9 HYPERTENSION NOS 07/13/2012 Ot 414.01 CORONARY ATHEROSCLEROSIS OF [place] CORON 07/13/2012 Ot 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 [...] 09/14/2012 Ot 787.91 DIARRHEA 03/28/2014 MARI BRADY FLIGHT CREW TIME CLERK Ot 716.90 ARTHROPATHY NOS-UNSPEC 03/28/2014 MARI BRADY FLIGHT CREW TIME CLERK Ot 729.5 PAIN IN LIMB 03/28/2014 MARI BRADY FLIGHT CREW TIME CLERK Ot 816.00 FX PHALANX, HAND NOS-CL 03/28/2014 MARI BRADY FLIGHT CREW TIME CLERK Ot E888.9 FALL NOS 03/28/2014 MARI BRADY FLIGHT CREW TIME CLERK Ot V45.01 CARDIAC PACEMAKER IN SITU 03/31/2014 [...] NEC/NOS 05/21/2016 Ot 414.01 CORONARY ATHEROSCLEROSIS OF [place] CORON 05/21/2016 Ot V58.69 OTH MED,LT, CURRENT USE 05/21/2016 Ot 272.4 HYPERLIPIDEMIA NEC/NOS 05/21/2016 Ot 414.01 CORONARY ATHEROSCLEROSIS OF [place] CORON 05/21/2016 Ot V58.69 OTH MED,LT, CURRENT [...] CCDS Ot I25.10 ATHSCL HEART DISEASE OF [place] CORONARY 11/11/2016 BOMO RITTER FACC, DELLA FACP CCDS Ot I25.5 [...] FACC, ALI FACP CCDS Ot Z79.899 OTHER MACHINE TOOL OPERATOR (CURRENT) DRUG THERAPY 11/11/2016 BOOM RITTER FACC, ALI FACP CCDS Ot Z95.5 PRESENCE OF CORONARY ANGIOPLASTY IMPLANT 11/11/2016 BOOM RITTER FACC, ALI FACP CCDS Ot Z95.810 PRESENCE OF AUTOMATIC (IMPLANTABLE) CARD 11/18/2016 BOOM RITTER FACC, ALI FACP CCDS Ot E78.5 HYPERLIPIDEMIA, UNSPECIFIED 11/18/2016 BOOM RITTER FACC, ALI FACP CCDS Ot I25.10 ATHSCL HEART DISEASE OF [place] CORONARY 11/18/2016 BOOM RITTER FACC, ALI FACP [...] CCDS Ot I25.10 ATHSCL HEART DISEASE OF [place] CORONARY 11/28/2016 BOOM RITTER FACC, DELLA FACP CCDS Ot I25.5 ISCHEMIC CARDIOMYOPATHY 12/02/2016 BOOM RITTER FACC, ALI FACP CCDS Ot E66.9 OBESITY, UNSPECIFIED 12/02/2016 BOOM RITTER FACC, ALI FACP CCDS Ot E78.5 HYPERLIPIDEMIA, UNSPECIFIED 12/02/2016 BOOM RITTER FACC, ALI FACP CCDS Ot I10 ESSENTIAL (PRIMARY) HYPERTENSION 12/02/2016 BOOM RITTER FACC, ALI FACP CCDS Ot I25.10 ATHSCL HEART DISEASE OF [place] CORONARY 12/02/2016 BOOM RITTER FACC, ALI FACP [...] MD, FACC FACP CCDS Ot Z79.899 OTHER PENITENTIARY (CURRENT) DRUG THERAPY 12/02/2016 DELLA NUR MD, [...] CCDS Ot I25.10 ATHSCL HEART DISEASE OF [place] CORONARY 12/04/2016 BOOM RITTER FACC, DELLA FACP [...] MD, FACC FACP CCDS Ot Z79.899 OTHER MACHINE TOOL OPERATOR (CURRENT) DRUG THERAPY 12/04/2016 BOOM HAYDEN, ALI [...] 2 DIABETES MELLITUS WITHOUT COMPLIC 12/16/2016 BOOM RITETR FACC, ALI FACP CCDS Ot E78.4 OTHER HYPERLIPIDEMIA 12/16/2016 BOOM RITTER FACC, ALI FACP CCDS Ot I10 ESSENTIAL (PRIMARY) HYPERTENSION 12/16/2016 BOOM RITTER FACC, ALI FACP CCDS Ot I25.10 ATHSCL HEART DISEASE OF [place] CORONARY 12/16/2016 BOOM RITTER FACC, ALI FACP [...] Ot M25.551 PAIN IN RIGHT HIP 02/27/2017 PBALO DO, ALEXANDRA F Ot M25.552 PAIN IN [...] MD, Ot I25.10 ATHSCL HEART DISEASE OF [place] CORONARY 03/27/2017 KATHRINE SMITH MD, Ot I48.91 UNSPECIFIED ATRIAL FIBRILLATION 03/27/2017 KATHRINE SMITH MD, Ot I50.22 CHRONIC SYSTOLIC (CONGESTIVE) HEART FAIL 03/27/2017 KATHRINE SMITH MD, Ot K40.90 UNIL INGUINAL HERNIA, W/O OBST OR GANGR, 03/27/2017 KATHRINE SMITH MD, Ot N40.0 BENIGN PROSTATIC HYPERPLASIA WITHOUT LOW 03/27/2017 KATHRINE SMITH MD, Ot N45.3 EPIDIDYMO-ORCHITIS 03/27/2017 KATHRINE SMITH MD, Ot Z79.4 MACHINE TOOL OPERATOR (CURRENT) USE OF INSULIN 03/27/2017 KATHRINE SMITH MD, Ot Z87.891 PERSONAL HISTORY OF NICOTINE DEPENDENCE 03/27/2017 KATHRINE SMITH MD, Ot Z95.0 PRESENCE OF CARDIAC PACEMAKER 03/30/2017 KATHRINE MSITH MD, Ot D17.6 BENIGN LIPOMATOUS NEOPLASM OF [...] MD, Ot I25.10 ATHSCL HEART DISEASE OF [place] CORONARY 03/30/2017 KATHRINE SMITH MD, Ot I48.91 UNSPECIFIED ATRIAL FIBRILLATION 03/30/2017 KATHRINE SMITH MD, Ot I50.22 CHRONIC SYSTOLIC (CONGESTIVE) HEART FAIL 03/30/2017 KATHRINE SMITH MD, Ot K40.90 UNIL INGUINAL HERNIA, W/O OBST OR GANGR, 03/30/2017 KATHRINE SMITH MD, Ot N40.0 BENIGN PROSTATIC HYPERPLASIA WITHOUT LOW 03/30/2017 KATHRINE SMITH MD, Ot N45.3 EPIDIDYMO-ORCHITIS 03/30/2017 KATHRINE SMITH MD, Ot Z79.4 PENITENTIARY (CURRENT) USE OF INSULIN 03/30/2017 KATHRINE SMITH [...] MD, Ot I25.10 ATHSCL HEART DISEASE OF [place] CORONARY 04/02/2017 KATHRINE SMITH MD, Ot I48.91 UNSPECIFIED ATRIAL FIBRILLATION 04/02/2017 KATHRINE SMITH MD, Ot I50.22 CHRONIC SYSTOLIC (CONGESTIVE) HEART FAIL 04/02/2017 KATHRINE SMITH MD, Ot K40.90 UNIL INGUINAL HERNIA, W/O OBST OR GANGR, 04/02/2017 KATHRINE SMITH MD, Ot N40.0 BENIGN PROSTATIC HYPERPLASIA WITHOUT LOW 04/02/2017 KATHRINE SMITH MD, Ot N45.3 EPIDIDYMO-ORCHITIS 04/02/2017 KATHRINE SMITH MD, Ot Z79.4 MACHINE TOOL OPERATOR (CURRENT) USE OF INSULIN 04/02/2017 KATHRINE SMITH [...] MD, Ot I25.10 ATHSCL HEART DISEASE OF [place] CORONARY 04/04/2017 KATHRINE SMITH MD, Ot I48.91 UNSPECIFIED ATRIAL FIBRILLATION 04/04/2017 KATHRINE SMITH MD, Ot I50.22 CHRONIC SYSTOLIC (CONGESTIVE) HEART FAIL 04/04/2017 KATHRINE SMITH MD, Ot K40.90 UNIL INGUINAL HERNIA, W/O OBST OR GANGR, 04/04/2017 KATHRINE SMITH MD, Ot N40.0 BENIGN PROSTATIC HYPERPLASIA WITHOUT LOW 04/04/2017 KATHRINE SMITH MD, Ot N45.3 EPIDIDYMO-ORCHITIS 04/04/2017 KATHRINE SMITH MD, Ot Z79.4 MACHINE TOOL OPERATOR (CURRENT) USE OF INSULIN 04/04/2017 KATHRINE SMITH [...] MD, Ot I25.10 ATHSCL HEART DISEASE OF [place] CORONARY 04/06/2017 KATHRINE SMITH MD, Ot I48.91 UNSPECIFIED ATRIAL FIBRILLATION 04/06/2017 KATHRINE SMITH MD, Ot I50.22 CHRONIC SYSTOLIC (CONGESTIVE) HEART FAIL 04/06/2017 KATHRINE SMITH MD, Ot K40.90 UNIL INGUINAL HERNIA, W/O OBST OR GANGR, 04/06/2017 KATHRINE SMITH MD, Ot N40.0 BENIGN PROSTATIC HYPERPLASIA WITHOUT LOW 04/06/2017 KATHRINE SMITH MD, Ot N45.3 EPIDIDYMO-ORCHITIS 04/06/2017 KATHRINE SMITH MD, Ot Z79.4 MACHINE TOOL OPERATOR (CURRENT) USE OF INSULIN 04/06/2017 KATHRINE SMITH MD, Ot Z87.891 PERSONAL HISTORY OF NICOTINE DEPENDENCE 04/06/2017 KATHRINE SMITH MD, Ot Z95.0 PRESENCE OF CARDIAC PACEMAKER 05/07/2017 KATHRINE SMITH MD, Ot 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 05/07/2017 KATHRINE SMITH MD, Ot E11.9 TYPE 2 DIABETES MELLITUS WITHOUT COMPLIC 05/07/2017 KATRHINE SMITH MD, Ot E78.00 PURE HYPERCHOLESTEROLEMIA, UNSPECIFIED 05/07/2017 KATHRINE SMITH MD, Ot F32.9 MAJOR DEPRESSIVE DISORDER, SINGLE EPISOD 05/07/2017 KATHRINE SMITH MD, Ot F41.9 ANXIETY DISORDER, UNSPECIFIED 05/07/2017 KATHRINE SMITH MD, Ot G47.33 OBSTRUCTIVE SLEEP APNEA (ADULT) (PEDIATR 05/07/2017 KATHRINE SMITH MD, Ot I11.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 05/07/2017 KATHRINE SMITH MD, Ot I25.10 ATHSCL HEART DISEASE OF [place] CORONARY 05/07/2017 KATHRINE SMITH MD, Ot I48.91 UNSPECIFIED ATRIAL FIBRILLATION 05/07/2017 KATHRINE SMITH MD, Ot I50.22 CHRONIC SYSTOLIC (CONGESTIVE) HEART FAIL 05/07/2017 KATHRINE SMITH MD, Ot K40.90 UNIL INGUINAL HERNIA, W/O OBST OR GANGR, 05/07/2017 KATHRINE SMITH MD, Ot N40.0 BENIGN PROSTATIC HYPERPLASIA WITHOUT LOW 05/07/2017 KATHRINE SMITH MD, Ot N45.3 EPIDIDYMO-ORCHITIS 05/07/2017 KATHRINE SMITH MD, Ot Z79.4 MACHINE TOOL OPERATOR (CURRENT) USE OF INSULIN 05/07/2017 KATHRINE SMITH [...] MD, Ot I25.10 ATHSCL HEART DISEASE OF [place] CORONARY 07/03/2017 KATHRINE SMITH MD, Ot I48.91 UNSPECIFIED ATRIAL FIBRILLATION 07/03/2017 KATHRINE SMITH MD, Ot I50.22 CHRONIC SYSTOLIC (CONGESTIVE) HEART FAIL 07/03/2017 KATHRINE SMITH MD, Ot K40.90 UNIL INGUINAL HERNIA, W/O OBST OR GANGR, 07/03/2017 KATHRINE SMITH MD, Ot N40.0 BENIGN PROSTATIC HYPERPLASIA WITHOUT LOW 07/03/2017 KATHRINE SMITH MD, Ot N45.3 EPIDIDYMO-ORCHITIS 07/03/2017 KATHRINE SMITH MD, Ot Z79.4 MACHINE TOOL OPERATOR (CURRENT) USE OF INSULIN 07/03/2017 KATHRINE SMITH [...] CCDS Ot I25.10 ATHSCL HEART DISEASE OF [place] CORONARY 07/10/2017 BOOM RITTER FACC, ALI FACP [...] CCDS Ot I25.10 ATHSCL HEART DISEASE OF [place] CORONARY 12/10/2017 BOOM RITTER FACC, DELLA FACP CCDS Ot I25.5 ISCHEMIC CARDIOMYOPATHY 12/10/2017 BOOM RITTER FACC, DELLA FACP CCDS Ot E11.9 TYPE 2 DIABETES MELLITUS WITHOUT COMPLIC 12/10/2017 BOOM RITTER FACC, DELLA FACP CCDS Ot E78.4 OTHER HYPERLIPIDEMIA 12/10/2017 BOOM RITTER FACC, DELLA FACP CCDS Ot I10 ESSENTIAL (PRIMARY) HYPERTENSION 12/10/2017 BOOM RITTER FACC, ALI FACP CCDS Ot I25.10 ATHSCL HEART DISEASE OF [place] CORONARY 12/10/2017 BOOM RITTER FACC, ALI FACP [...] CCDS Ot I25.10 ATHSCL HEART DISEASE OF [place] CORONARY 12/29/2017 BOOM RITTER FACC, ALI FACP [...] CCDS Ot I25.10 ATHSCL HEART DISEASE OF [place] CORONARY 01/12/2018 BOOM RITTER FACC, ALI FACP [...] SKIN DISORDER NOS 01/28/2018 MADHURI RITTER, TERELL Antunez Ot V72.63 PRE-PROCEDURAL LABORATORY EXAMINATION 01/28/2018 MADHURI [...] CCDS Ot I25.10 ATHSCL HEART DISEASE OF [place] CORONARY 01/28/2018 BOOM MD FACC, ALI FACP CCDS Ot I25.5 ISCHEMIC CARDIOMYOPATHY 01/28/2018 BOOM RITTER FACC, ALI FACP CCDS Ot E11.9 TYPE 2 DIABETES MELLITUS WITHOUT COMPLIC 01/28/2018 BOOM RITTER FAC, ALI FACP CCDS Ot E78.4 OTHER HYPERLIPIDEMIA 01/28/2018 BOOM RITTER FACC, ALI FACP CCDS Ot I10 ESSENTIAL (PRIMARY) HYPERTENSION 01/28/2018 BOOM RITTER FAC, ALI FACP CCDS Ot I25.10 ATHSCL HEART DISEASE OF [place] CORONARY 01/28/2018 BOMO RITTER FAC, ALI FACP CCDS Ot I25.5 ISCHEMIC CARDIOMYOPATHY 01/28/2018 BOOM RITTER [facility], ALI FACP CCDS Ot I48.92 UNSPECIFIED ATRIAL FLUTTER 01/28/2018 BOOM RITTER [facility], ALI FACP CCDS Ot I49.5 SICK SINUS SYNDROME 01/28/2018 Ot R06.02 SHORTNESS OF BREATH 01/28/2018 Ot R22.41 LOCALIZED SWELLING, MASS AND LUMP, RIGHT 01/28/2018 FEDERICO JON MD Ot N43.3 HYDROCELE, UNSPECIFIED 01/28/2018 FEDERICO JON MD Ot N45.1 EPIDIDYMITIS 01/28/2018 ALIYAH RITTER, ROXANNA Oconnell Ot M54.16 RADICULOPATHY, LUMBAR REGION 01/29/2018 BAIJENNI ESCUDERO L COUNTERINTELLIGENCE AGENT Ot I10 ESSENTIAL (PRIMARY) HYPERTENSION 01/29/2018 BAIMA JENNI L COUNTERINTELLIGENCE AGENT Ot I25.10 ATHSCL HEART DISEASE OF [place] CORONARY 01/29/2018 BAITAHIRA ESCUDEROHER L COUNTERINTELLIGENCE AGENT Ot I25.5 ISCHEMIC CARDIOMYOPATHY 01/29/2018 JENNI RALPH L COUNTERINTELLIGENCE AGENT Ot I48.92 UNSPECIFIED ATRIAL FLUTTER 01/29/2018 JENNI RALPH COUNTERINTELLIGENCE AGENT Ot R06.09 OTHER FORMS OF DYSPNEA 01/29/2018 [...] CCDS Ot I25.10 ATHSCL HEART DISEASE OF [place] CORONARY 01/29/2018 BOOM RITTER FACC, DELLA FACP CCDS Ot I25.5 ISCHEMIC CARDIOMYOPATHY 01/29/2018 BOOM RITTER FACC, ALI FACP CCDS Ot E11.9 TYPE 2 DIABETES MELLITUS WITHOUT COMPLIC 01/29/2018 BOOM RITTER FACC, ALI FACP CCDS Ot E78.4 OTHER HYPERLIPIDEMIA 01/29/2018 BOOM RITTER FACC, ALI FACP CCDS Ot I10 ESSENTIAL (PRIMARY) HYPERTENSION 01/29/2018 BOOM RITTER FACC, ALI FACP CCDS Ot I25.10 ATHSCL HEART DISEASE OF [place] CORONARY 01/29/2018 BOOM RITTER FACC, ALI FACP [...] CCDS Ot I25.10 ATHSCL HEART DISEASE OF [place] CORONARY 02/09/2018 BOOM RITTER FACC, ALI FACP CCDS Ot I25.5 ISCHEMIC CARDIOMYOPATHY 02/09/2018 BOOM RITTER FACC, ALI FACP CCDS Ot E11.9 TYPE 2 DIABETES MELLITUS WITHOUT COMPLIC 02/09/2018 BOOM MD FACC, ALI FACP CCDS Ot E78.4 OTHER HYPERLIPIDEMIA 02/09/2018 BOOM RITTER FACC, ALI FACP CCDS Ot I10 ESSENTIAL (PRIMARY) HYPERTENSION 02/09/2018 BOOM RITTER FACC, ALI FACP CCDS Ot I25.10 ATHSCL HEART DISEASE OF [place] CORONARY 02/09/2018 BOOM RITTER FACC, ALI FACP [...] FEDERICO Philip Ot N45.1 EPIDIDYMITIS 02/09/2018 JENNI RLAPH COUNTERINTELLIGENCE AGENT Ot I10 ESSENTIAL (PRIMARY) HYPERTENSION 02/09/2018 JENNI RALPH L COUNTERINTELLIGENCE AGENT Ot I25.10 ATHSCL HEART DISEASE OF [place] CORONARY 02/09/2018 JENNI RALPH COUNTERINTELLIGENCE AGENT Ot I25.5 ISCHEMIC CARDIOMYOPATHY 02/09/2018 JENNI RALPH COUNTERINTELLIGENCE AGENT Ot I48.92 UNSPECIFIED ATRIAL FLUTTER 02/09/2018 JENNI RALPH COUNTERINTELLIGENCE AGENT Ot R06.09 OTHER FORMS OF DYSPNEA 2018 [...] OTHER SPONDYLOSIS WITH RADICULOPATHY, RUFINA 03/23/2018 BAIJENNI ESCUDERO L COUNTERINTELLIGENCE AGENT Ot I10 ESSENTIAL (PRIMARY) HYPERTENSION 03/23/2018 BAIMA JENNI L COUNTERINTELLIGENCE AGENT Ot I25.10 ATHSCL HEART DISEASE OF [place] CORONARY 03/23/2018 BAIMA JENNI L COUNTERINTELLIGENCE AGENT Ot I25.5 ISCHEMIC CARDIOMYOPATHY 03/23/2018 BAIMA, JENNI L COUNTERINTELLIGENCE AGENT Ot I48.92 UNSPECIFIED ATRIAL FLUTTER 03/23/2018 BAIMA JENNI L COUNTERINTELLIGENCE AGENT Ot R06.09 OTHER FORMS OF DYSPNEA 03/30/2018 MINI BUSTAMANTE, JOE L Ot 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, LUMBAR REGION 03/30/2018 MINI DO, JOE Perez Ot M47.26 OTHER SPONDYLOSIS WITH RADICULOPATHY, RUFINA 04/01/2018 MORALESKENA JENNI L COUNTERINTELLIGENCE AGENT Ot I10 ESSENTIAL (PRIMARY) HYPERTENSION 04/01/2018 MORALESKENA JENNI L COUNTERINTELLIGENCE AGENT Ot I25.10 ATHSCL HEART DISEASE OF [place] CORONARY 04/01/2018 MORALESMA JENNI L COUNTERINTELLIGENCE AGENT Ot I25.5 ISCHEMIC CARDIOMYOPATHY 04/01/2018 BAIMA JENNI L COUNTERINTELLIGENCE AGENT Ot I48.92 UNSPECIFIED ATRIAL FLUTTER 04/01/2018 MORALESKENA JENNI L COUNTERINTELLIGENCE AGENT Ot R06.09 OTHER FORMS OF DYSPNEA 04/06/2018 [...] CCDS Ot I25.10 ATHSCL HEART DISEASE OF [place] CORONARY 04/06/2018 BOOM RITTER FACC, ALI FACP [...] M54.16 RADICULOPATHY, LUMBAR REGION 04/09/2018 HEARNDON DO, OJE Perez Ot M54.16 RADICULOPATHY, LUMBAR REGION 04/15/2018 JENNI RALPH COUNTERINTELLIGENCE AGENT Ot I10 ESSENTIAL (PRIMARY) HYPERTENSION 04/15/2018 JENNI RALPH COUNTERINTELLIGENCE AGENT Ot I25.10 ATHSCL HEART DISEASE OF [place] CORONARY 04/15/2018 JENNI RALPH COUNTERINTELLIGENCE AGENT Ot I25.5 ISCHEMIC CARDIOMYOPATHY 04/15/2018 JENNI RALPH COUNTERINTELLIGENCE AGENT Ot I48.92 UNSPECIFIED ATRIAL FLUTTER 04/15/2018 JENNI RALPH COUNTERINTELLIGENCE AGENT Ot R06.09 OTHER FORMS OF DYSPNEA 04/15/2018 [...] CCDS Ot I25.10 ATHSCL HEART DISEASE OF [place] CORONARY 04/15/2018 BOOM RITTER FACC, DELLA FACP [...] MD, Ot I25.10 ATHSCL HEART DISEASE OF [place] CORONARY 04/19/2018 MANDEEP FRIEDMAN MD, Ot I25.5 [...] ADULT 04/19/2018 MANDEEP FRIEDMAN MD Ot Z79.4 MACHINE TOOL OPERATOR (CURRENT) USE OF INSULIN 04/19/2018 MANDEEP FRIEDMAN MD Ot Z79.82 MACHINE TOOL OPERATOR (CURRENT) USE OF ASPIRIN 04/19/2018 MANDEEP FRIEDMAN MD, Ot Z79.899 OTHER PENITENTIARY (CURRENT) DRUG THERAPY 04/19/2018 MANDEEP FRIEDMAN MD, [...] MD, Ot I25.10 ATHSCL HEART DISEASE OF [place] CORONARY 04/23/2018 MANDEEP FRIEDMAN MD, Ot I25.5 [...] ADULT 04/23/2018 MANDEEP FRIEDMAN MD, Ot Z79.4 MACHINE TOOL OPERATOR (CURRENT) USE OF INSULIN 04/23/2018 MANDEEP FRIEDMAN MD, Ot Z79.82 PENITENTIARY (CURRENT) USE OF ASPIRIN 04/23/2018 MANDEEP FRIEDMAN MD, Ot Z79.899 OTHER MACHINE TOOL OPERATOR (CURRENT) DRUG THERAPY 04/23/2018 MANDEEP FRIEDMAN MD, [...] MD, Ot I25.10 ATHSCL HEART DISEASE OF [place] CORONARY 04/27/2018 MANDEEP FRIEDMAN MD, Ot I25.5 [...] ADULT 04/27/2018 MANDEEP FRIEDMAN MD, Ot Z79.4 PENITENTIARY (CURRENT) USE OF INSULIN 04/27/2018 MANDEEP FRIEDMAN MD Ot Z79.82 PENITENTIARY (CURRENT) USE OF ASPIRIN 04/27/2018 MANDEEP FRIEDMAN MD Ot Z79.899 OTHER PENITENTIARY (CURRENT) DRUG THERAPY 04/27/2018 MANDEEP FRIEDMAN MD Ot Z95.5 PRESENCE OF CORONARY ANGIOPLASTY IMPLANT 04/27/2018 MANDEEP FRIEDMAN MD Ot Z95.810 PRESENCE OF AUTOMATIC (IMPLANTABLE) CARD 05/09/2018 BERNOT, EDWIN Ot E11.9 TYPE 2 DIABETES MELLITUS WITHOUT COMPLIC 05/09/2018 BERNOT, EDWIN Ot I10 ESSENTIAL (PRIMARY) HYPERTENSION 05/09/2018 BERNOT, EDWIN Ot I48.91 UNSPECIFIED ATRIAL FIBRILLATION 05/09/2018 BERNOT, EDWIN Ot K21.9 GASTRO-ESOPHAGEAL REFLUX DISEASE WITHOUT 05/09/2018 BERNOT, EDWIN Ot K59.00 CONSTIPATION, UNSPECIFIED 05/09/2018 BERNOT, EDWIN Ot Z79.4 MACHINE TOOL OPERATOR (CURRENT) USE OF INSULIN 05/09/2018 BERNOT, EDWIN Ot Z87.891 PERSONAL HISTORY OF NICOTINE DEPENDENCE 05/09/2018 BERNOT, EDWIN Ot Z88.0 ALLERGY STATUS TO PENICILLIN 05/09/2018 BERNOT, EDWIN Ot Z95.5 PRESENCE OF CORONARY ANGIOPLASTY IMPLANT 05/11/2018 BERNOT, EDWIN Ot E11.9 TYPE 2 DIABETES MELLITUS WITHOUT COMPLIC 05/11/2018 BERNOT, EDWIN Ot I10 ESSENTIAL (PRIMARY) HYPERTENSION 05/11/2018 BERNOT, EDWIN Ot I48.91 UNSPECIFIED ATRIAL FIBRILLATION 05/11/2018 BERNOT, EDWIN Ot K21.9 GASTRO-ESOPHAGEAL REFLUX DISEASE WITHOUT 05/11/2018 BERNOT, EDWIN Ot K59.00 CONSTIPATION, UNSPECIFIED 05/11/2018 BERNOT, EDWIN Ot Z79.4 PENITENTIARY (CURRENT) USE OF INSULIN 05/11/2018 BERNOT, EDWIN Ot Z87.891 PERSONAL HISTORY OF NICOTINE DEPENDENCE 05/11/2018 BERNOT, EDWIN Ot Z88.0 ALLERGY STATUS TO PENICILLIN 05/11/2018 BERNOT, EDWIN Ot Z95.5 PRESENCE OF CORONARY ANGIOPLASTY IMPLANT 08/12/2018 JOE MORSE DO Ot M54.16 RADICULOPATHY, LUMBAR REGION Procedures Code Description Performed By Performed On 60.29 01/27/2011 [id number] DRAINAGE OF RIGHT KNEE JOINT, PERCUTANEO 04/16/2018 [id number] EXCISION OF RIGHT KNEE JOINT, PERC ENDO [...] resistant Staphylococcus aureus (MRSA) screening culture NEG NR Capillary blood glucose measurement by glucometer (mass/volume) - 11/11/16 09: 53 Capillary blood glucose measurement by glucometer (mass/volume) 145 mg/dL 70-110 Methicillin resistant Staphylococcus aureus (MRSA) screening culture - 10:28 Methicillin resistant Staphylococcus aureus (MRSA) screening culture NEG NR Complete blood count (CBC) with automated white [...] CLDY NRG Body fluid leukocytes count (number/volume) 81515 /uL NRG Body fluid erythrocytes count (number/volume) [...] CLDY NRG Body fluid leukocytes count (number/volume) 16701 /uL NRG Body fluid erythrocytes count (number/volume) 01643 /uL NRG Manual body fluid polymorphonuclear cells/100 [...] Bacteria identification in isolate by anaerobe culture [facility] Gram stain microscopy - 04/16/18 14:11 GRAM STAIN RESULT NUMEROUS WBC'S, NO BACTERIA OBSERVED NR Bacteria identification in wound by culture - 04/16/18 14:11 Bacteria identification in wound by culture [facility] Capillary blood glucose measurement by glucometer (mass/volume) [...] plasma albumin measurement (mass/volume) 3.6 g/dL 3.2-4.5 Complete blood count (CBC) with automated white blood cell (WBC) differential - 08/23/18 10:09 Blood leukocytes automated count (number/volume) 8.7 10*3/uL 4.3-11.0 Blood erythrocytes automated count (number/volume) 4.21 10*6/uL 4.35-5.85 Venous blood hemoglobin measurement (mass/volume) 13.0 g/dL 13.3-17.7 Blood hematocrit (volume fraction) 40 % 40-54 Automated erythrocyte mean corpuscular volume 94 [foz_us] 80-99 Automated erythrocyte mean corpuscular hemoglobin (mass per erythrocyte) 31 pg 25-34 Automated erythrocyte mean corpuscular hemoglobin concentration measurement ( mass/volume) 33 g/dL 32-36 Automated erythrocyte distribution width ratio 13.2 % 10.0-14.5 Automated blood platelet count (count/volume) 164 10*3/uL 130-400 Automated blood platelet mean volume measurement 9.5 [foz_us] 7.4-10.4 Automated blood neutrophils/100 leukocytes 80 % 42-75 Automated blood lymphocytes/100 leukocytes 10 % 12-44 Blood monocytes/100 leukocytes 9 % 0-12 Automated blood eosinophils/100 leukocytes 1 % 0-10 Automated blood basophils/100 leukocytes 0 % 0-10 Blood neutrophils automated count (number/volume) 7.0 10*3 1.8-7.8 Blood lymphocytes automated count (number/volume) 0.9 10*3 1.0-4.0 Blood monocytes automated count (number/volume) 0.8 10*3 0.0-1.0 Automated eosinophil count 0.1 10*3/uL 0.0-0.3 Automated blood basophil count (count/volume) 0.0 10*3/uL 0.0-0.1 Comprehensive metabolic panel - 08/23/18 10:09 Serum or plasma sodium measurement (moles/volume) 138 mmol/L 135-145 Serum or plasma potassium measurement (moles/volume) 4.1 mmol/L 3.6-5.0 Serum or plasma chloride measurement (moles/volume) 107 mmol/L 98-107 Carbon dioxide 21 mmol/L 21-32 Serum or plasma anion gap determination (moles/volume) 10 mmol/L 5-14 Serum or plasma urea nitrogen measurement (mass/volume) 15 mg/dL 7-18 Serum or plasma creatinine measurement (mass/volume) 0.87 mg/dL 0.60-1.30 Serum or plasma urea nitrogen/creatinine mass ratio 17 NRG Serum or plasma creatinine measurement with calculation of estimated glomerular filtration rate > NRG Serum or plasma glucose measurement (mass/volume) 111 mg/dL 70-105 Serum or plasma calcium measurement (mass/volume) 9.8 mg/dL 8.5-10.1 Serum or plasma total bilirubin measurement (mass/volume) 0.8 mg/dL 0.1-1.0 Serum or plasma alkaline phosphatase measurement (enzymatic activity/volume) 70 U/L 40-136 Serum or plasma aspartate aminotransferase measurement (enzymatic activity/ volume) 17 U/L 5-34 Serum or plasma alanine aminotransferase measurement (enzymatic activity/volume ) 15 U/L 0-55 Serum or plasma protein measurement (mass/volume) 6.3 g/dL 6.4-8.2 Serum or plasma albumin measurement (mass/volume) 3.8 g/dL 3.2-4.5 CALCIUM CORRECTED 10.0 mg/dL 8.5-10.1 Magnesium - 08/23/18 10:09 Magnesium 1.9 mg/dL 1.8-2.4 PT panel in platelet poor plasma by coagulation assay - 08/23/18 10:09 Prothrombin time (PT) in platelet poor plasma by coagulation assay 12.9 s 12.2-14.7 INR in platelet poor plasma or blood by coagulation assay 1.0 0.8-1.4 Activated partial thromboplastin time (aPTT) in platelet poor plasma bycoagulation assay - 08/23/18 10:09 Activated partial thromboplastin time (aPTT) in platelet poor plasma bycoagulation assay 27 s 24-35 Fibrin D-dimer FEU measurement in platelet poor plasma (mass/volume) - 10:09 Fibrin D-dimer FEU measurement in platelet poor plasma (mass/volume) 2.76 ug/mL 0.00-0.49 Serum or plasma troponin i.cardiac measurement (mass/volume) - 08/23/18 10:09 Serum or plasma troponin i.cardiac measurement (mass/volume) < ng/ mL <0.30 Myoglobin, serum - 08/23/18 10:09 Myoglobin, serum 37.2 ng/mL 10.0-92.0 Serum or plasma lithium measurement (moles/volume) - 08/23/18 10:09 BNP level 46.1 pg/mL <100.0 Encounters ACCT No. Visit Date/Time Discharge Status Pt. Type Provider Facility Loc./Unit Complaint [id number] 05/09/2018 14:16:00 05/09/2018 16:42:00 DIS Emergency EDWIN MADRID [facility] ER CONSTIPATION [id number] 04/16/2018 13:27:00 04/19/2018 12:35:00 DIS Inpatient MANDEEP FRIEDMAN MD [facility] 4TH KNEE CLEAN OUT [id number] 04/08/2018 14:11:00 04/08/2018 23:59:59 CLS Outpatient JOE MORSE DO [facility] CARD LUMBAR RADICULOPATHY M54.16 [id number] 03/18/2018 10:32:00 03/18/2018 23:59:59 CLS Outpatient JOE MORSE DO [facility] RAD LUMBAR RADICULOPATHY [id number] 03/08/2018 14:04:00 03/08/2018 23:59:59 CLS Outpatient BOOM RITTER FACCDELLA FACP CCDS [facility] PULM R06.02 SOB [id number] 2018 13:56:00 2018 15:21:00 DIS Outpatient JOE MORSE DO [facility] CARD M54.16 LUMBAR RADICULOPATHY [id number] 01/06/2018 10:52:00 02/02/2018 11:02:00 DIS Outpatient ALIYAH RITTER, ROXANNA Oconnell [facility] REHAB R LUMBAR RADICULOPATHY [id number] 01/27/2018 13:28:00 01/27/2018 23:59:59 CLS Outpatient RAMO JENNI Chris [employer]ENT [facility] CARD R06.09 SPIVEY [id number] 03/26/2017 08:46:00 03/27/2017 13:45:00 DIS Outpatient KATHRINE SMITH MD [facility] LEFT INGUINAL HERNIA [id number] 03/20/2017 05:43:00 03/20/2017 10:30:00 DIS Outpatient KATHRINE SMITH MD [facility] PREOP LEFT INGUINAL HERNIA [id number] 02/25/2017 14:15:00 03/03/2017 13:55:00 DIS Outpatient ALEXANDRA SHAH DO [facility] REHAB ASH HIP PAIN; LOW BACK PAIN [id number] 12/10/2016 13:59:00 12/10/2016 23:59:59 CLS Outpatient FEDERICO JON MD [facility] RAD BILAT HYDROCELES [id number] 12/01/2016 13:54:00 12/01/2016 23:59:59 CLS Outpatient BOOM RITTER FACC, DELLA FACP CCDS [facility] RT CAD,HTN,HLP [id number] 11/18/2016 10:16:00 11/18/2016 23:59:59 CLS Outpatient BOOM RITTER FACC, ALI FACP CCDS [facility] LAB I25.5,E78.5, I25.10 [id number] 11/11/2016 06:57:00 11/11/2016 14:15:00 DIS Outpatient BOOM RITTER FACC, ALI FACP CCDS [facility] CATH CAD,SOB, ANGINA,DM [id number] 10/21/2016 11:12:00 10/21/2016 23:59:59 CLS Outpatient BOOM RITTER FACC, ALI FACP CCDS [facility] RAD RIGHT LEG CLAUDICATION [id number] 11/23/2015 10:23:00 11/23/2015 13:45:00 DIS Outpatient ROXANNA LY MD [facility] LOWER GI BLEED [id number] 11/21/2015 05:37:00 11/21/2015 23:59:59 CLS Outpatient ALIYAH RITTER, ROXANNA Oconnell [facility] PREOP LOWER GI BLEED [id number] 05/02/2015 16:10:00 05/02/2015 23:59:59 CLS Outpatient NI DPM, LARRY Q [facility] RAD SWELLING ,OSTEOLYLITIS, LESION TO LT 2ND [id number] 09/20/2014 11:02:00 09/20/2014 16:20:00 DIS Outpatient TERELL DHALIWAL MD [facility] SKIN LESIONS [id number] 09/15/2014 09:40:00 09/15/2014 23:59:59 CLS Outpatient TERELL DHALIWAL MD [facility] PREOP SKIN LESIONS [id number] 03/31/2014 08:49:00 03/31/2014 10:43:00 DIS Emergency RENE EDDY MD [facility] ER FALL/RIGHT FOOT PAIN [id number] 03/28/2014 19:36:00 03/28/2014 20:10:00 DIS Emergency MARI BRADY APRN [facility] ER R HAND PAIN [id number] 03/16/2013 15:55:00 03/16/2013 23:59:59 CLS Outpatient BOOM RITTER FACC, DELLA BENAVIDES CCDS [facility] LAB HYPERTENSION [id number] 08/23/2018 10:24:00 Document Registration [id number] 11/25/2016 09:31:00 Document Registration [id number] 09/15/2012 00:00:00 Document Registration [id number] 08/26/2012 18:17:00 Document Registration [id number] 07/26/2012 09:56:00 Document Registration [id number] 07/13/2012 05:33:00 Document Registration [id number] 07/12/2012 08:53:00 Document Registration [id number] 06/16/2012 09:56:00 Document Registration [id number] 05/13/2012 15:59:00 Document Registration [id number] 05/10/2012 08:49:00 Document Registration [id number] 05/10/2012 08:43:00 Document Registration [id number] 11/07/2011 09:14:00 Document Registration [id number] 08/19/2011 05:33:00 Document Registration [id number] 08/18/2011 08:00:00 Document Registration [id number] 01/31/2011 08:59:00 Document Registration [id number] 01/27/2011 06:35:00 Document Registration [id number] 01/24/2011 11:35:00 Document Registration [id number] 01/17/2011 22:42:00 Document Registration [id number] 01/15/2011 17:20:00 Document Registration [id number] 01/09/2011 05:56:00 Document Registration [id number] 01/07/2011 13:59:00 Document Registration [id number] 05/02/2015 16:11:35 ACT Document Registration [id number] 06/23/2017 09:11:00 06/23/2017 23:59:00 DIS Outpatient RACHEL OWEN
[2018-08-23 13:30] VITALS: BP 144/64
[2018-08-23 13:45] VITALS: BP 166/77
[2018-08-23] MEDS ORDERED: HEParin (CATH LAB) 2,000 ML IV ONE (13:54)
[2018-08-23] MEDS ORDERED: LIDOCAINE 1% INJ 20 ML 20 ML VIAL ONE (13:54)
[2018-08-23] MEDS ORDERED: NS IV 1000 ML 1,000 ML ONE (13:54)
[2018-08-23 14:00] VITALS: BP 155/77
[2018-08-23] MEDS ORDERED: MIDAZOLAM 5 MG/5 ML (VERSED) VIAL ONE (14:28)
[2018-08-23] MEDS ORDERED: fentaNYL INJECTION 100 MCG/2 ML AMP ONE (14:28)
[2018-08-23] MEDS ORDERED: FLU QUADRIvalent (5+ YOA) 2018-2019 (AFLURIA) 0.5 ML IM ONE (14:30)
[2018-08-23] MEDS ORDERED: NS IV 1000 ML 1,000 ML IV SCH ×2 (15:00→19:00)
--- NOTE | 2018-08-23 15:02 | Consultation-Cardiology ---
HPI-Cardiology Cardiology Consultation: Date of Consultation 08/23/18 Date of Admission Attending Physician Matthew Zayas MD Admitting Physician Parminder Vidal MD Consulting Physician Tluio HARDING MD HPI: Time Seen by a Provider: 14:00 Chief Complaint: Severe chest pain. This is a 88-year-old gentleman who is a patient of Dr. Pineda. He has history of CAD with multiple PCI to the RCA. The patient also has history of cardiomyopathy with biventricular pacemaker. The patient presented with severe 10/10 chest pain since morning. The pain was substernal and similar in quality to his previous chest pain. The patient denied any shortness of breath, syncope or near syncope. He took 4 nitroglycerin with no improvement. He was given Plavix 600 mg bolus as well as started on IV heparin infusion. There was some improvement in his chest pain however he continued to have 3/10 chest pain when I saw him, which was at least 3 hours after his initial presentation. His first troponin was negative. Review of Systems-Cardiology Review of Systems Constitutional: As described under HPI; No As described under HPI, No no symptoms reported, No chills, No fever, No lightheadedness Eyes: No As described under HPI, No no symptoms reported, No blindness, No blurred vision, No contact lenses, No drainage, No decreased acuity, No foreign body sensation, No pain, No vision change Ears/Nose/Throat: No As described under HPI, No no symptoms reported, No chronic hearing loss, No ear discharge, No ear pain, No nasal drainage, No ulcerations Respiratory: No no symptoms reported; As described under HPI; No As described under HPI, No cough, No orthopnea, No shortness of breath, No SOB with excertion Cardiovascular: No no symptoms reported; As described under HPI; No As described under HPI; chest pain; No edema, No irregular heart rate, No lightheadedness, No palpitations Gastrointestinal: No no symptoms reported, No As described under HPI, No abdomen distended, No abdominal pain, No blood streaked bowels, No constipation , No diarrhea, No nausea, No vomiting, No stool coloration changes Genitourinary: No As described under HPI, No burning, No dysuria, No discharge , No frequency, No flank pain, No hematuria, No urgency Musculoskeletal: No no symptoms reported, No As describe under HPI, No back pain, No gout, No joint pain, No joint swelling, No muscle pain, No muscle stiffness, No neck pain, No other Skin: No no symptoms reported, No As described under HPI, No change in color, No change in hair/nails, No dryness, No lesions, No lumps, No rash, No other, No skin related problems, No ulcerations, No rash on exposed areas, No ulcerations on exposed areas Psychiatric/Neurological: No anxiety, No depression, No seizure, No focal weakness, No syncope Hematologic: No bleeding abnormalities PKH-[id number]-[id number] Hx Patient Social History Alcohol Use: Denies Use Recreational Drug Use: No Smoking Status: Former Smoker 2nd Hand Smoke Exposure: No Recent Foreign Travel: No Recent Infectious Disease Expo: No Hospitalization with Isolation: Denies Physical Abuse Screen: No Sexual Abuse: No Immunizations Up To Date Tetanus Booster (TDap): Unknown Date of Pneumonia Vaccine: Jul 26, 2015 Date of Influenza Vaccine: Jul 26, 2015 Past Medical History PMH As described under Assessment. Family Medical History Family Medical History: No fam h/o early CAD or SCD Allergies and Home Medications Allergies Coded Allergies: Penicillins (Verified Allergy, Mild, 11/23/15) Home Medications Ascorbic Acid 500 Mg Tablet, 500 MG PO DAILY, (Reported) Brimonidine Tartrate 10 Ml Drops, 1 DROP OU BID, (Reported) one drop both eyes bid Cholecalciferol 1,000 Unit Capsule, 1,000 UNIT PO DAILY, (Reported) Clindamycin HCl 300 Mg Capsule, 300 MG PO TID Prescribed by: ALEX JACK on 04/19/18 1039 Fluoxetine HCl 20 Mg Tablet, 20 MG PO BID, (Reported) Furosemide 40 Mg Tablet, 40 MG PO DAILY, (Reported) Hydrocodone/Acetaminophen 1 Each Tablet, 1-2 EACH PO Q4H Prescribed by: KATHRINE SMITH on 03/26/17 1441 Insulin Detemir 100 Unit/1 Ml Insuln.pen, 30 UNIT SQ BID, (Reported) Naproxen 500 Mg Tablet, 500 MG PO NEEDED PRN for PAIN-MILD, (Reported) Nitroglycerin 0.4 Mg Subl, 0.4 MG SL PRN, (Reported) Pravastatin Sodium 20 Mg Tablet, 20 MG PO HS, (Reported) Ramipril 2.5 Mg Capsule, 2.5 MG PO DAILY, (Reported) Patient Home Medication List Home Medication List Reviewed: Yes Physical Exam-Cardiology Physical Exam Vital Signs/I&O 08/23/18 08/23/18 08/23/18 08/23/18 09:57 13:30 13:38 13:45 Temp 98.2 Pulse 79 91 73 Resp 21 22 B/P (MAP) 117/73 (88) 144/64 (90) 166/77 (106) Pulse Ox 94 94 O2 Delivery Room Air Room Air Room Air 08/23/18 14:00 Pulse 81 B/P (MAP) 155/77 (103) Pulse Ox 94 Capillary Refill : Less Than 3 Seconds Constitutional: appears stated age, AAO x 3; No apparent distress; well- developed, well-nourished HEENT: PERRL; No normal ENT inspection, No TMs normal, No pharynx normal, No scleral icterus (R), No scleral icterus (L), No pale conjunctivae (R), No pale conjunctivae (L), No photophobia, No TM abnormal (R), No TM abnormal (L), No pharyngeal erythema, No tonsillar exudate, No other, No discharge, No EOMI; hearing is well preserved; No hard of hearing; oral hygience is good; No ulceration, No xanthelasmas are seen Neck: No non-tender, No full range of motion, No supple, No normal inspection, No carotid bruit, No limited range of motion, No lymphadenopathy (R), No lymphadenopathy (L), No tender lateral, No tender midline, No thyromegaly, No other; carotid pulses are 2 + bilaterally; No with good upstrokes Respiratory: No accessory muscle use, No respiratory distress, No chest tender , No chest expansion is symmetric; chest is bilaterally symmetric; No lungs clear to percussion; lungs clear to auscultation; No crackles, No rhonchi, No rales, No stridor, No wheezing, No pleural rub, No other Cardiovascular: regular rate-rhythm; No irregularly irregular, No extra beats, No parasternal heave is noted, No JVD, No edema, No bradycardia, No tachycardia , No point of maximal impulse, No cardiac thrills are palpable; S1 and S2; No gallop/S3, No gallop/S4, No diastolic murmur, No systolic murmur, No friction rub, No click, No other Gastrointestinal: No tender, No soft, No round, No distended, No pulsatile mass , No organomegaly, No guarding, No rebound, No tenderness, No hernia, No mass, No audible bowel sounds, No abnormal bowel sounds, No abdominal bruits, No spleenomegaly, No other Rectal: deferred Extremities: No normal range of motion, No non-tender, No normal inspection, No pedal edema, No calf tenderness, No normal capillary refill, No pelvis stable , No calf tenderness, No inflammation, No pedal edema, No slow capillary refill , No swelling, No other, No abrasion, No clubbing, No cyanosis, No ecchymosis, No laceration, No no lower extremity edema bilateral, No significant edema, No tenderness, No wound Neurologic/Psychiatric: no motor/sensory deficits, alert, normal mood/affect, oriented x 3, power is 5/5 both on sides Skin: No normal color, No warm/dry, No cyanosis, No cool, No diaphoresis, No damp, No ecchymosis, No jaundice, No mottled, No pallor, No rash, No tattoos/ piercings, No ulcerations, No rash on exposed areas, No ulcerations on exposed areas, No other Data Review Labs Laboratory Tests 08/23/18 10:09: White Blood Count 8.7, Red Blood Count 4.21L, Hemoglobin 13.0L, Hematocrit 40, Mean Corpuscular Volume 94, Mean Corpuscular Hemoglobin 31, Mean Corpuscular Hemoglobin Concent 33, Red Cell Distribution Width 13.2, Platelet Count 164, Mean Platelet Volume 9.5, Neutrophils (%) (Auto) 80H, Lymphocytes (%) (Auto) 10L , Monocytes (%) (Auto) 9, Eosinophils (%) (Auto) 1, Basophils (%) (Auto) 0, Neutrophils # (Auto) 7.0, Lymphocytes # (Auto) 0.9L, Monocytes # (Auto) 0.8, Eosinophils # (Auto) 0.1, Basophils # (Auto) 0.0, Prothrombin Time 12.9, INR Comment 1.0, Activated Partial Thromboplast Time 27, D-Dimer 2.76H, Sodium Level 138, Potassium Level 4.1, Chloride Level 107, Carbon Dioxide Level 21, Anion Gap 10, Blood Urea Nitrogen 15, Creatinine 0.87, Estimat Glomerular Filtration Rate > 60, BUN/Creatinine Ratio 17, Glucose Level 111H, Calcium Level 9.8, Corrected Calcium 10.0, Magnesium Level 1.9, Total Bilirubin 0.8, Aspartate Amino Transf (AST/SGOT) 17, Alanine Aminotransferase (ALT/SGPT) 15, Alkaline Phosphatase 70, Myoglobin 37.2, Troponin I < 0.30, B-Type Natriuretic Peptide 46.1, Total Protein 6.3L, Albumin 3.8, Lipase 9 08/23/18 13:55: Troponin I < 0.30 ECG Impression ECG Comment Ventricular paced rhythm. A/P-Cardiology Assessment/Admission Diagnosis Acute coronary syndrome refractory to medical therapy, History of CAD and PCI, Cardiomyopathy, Biventricular pacemaker, Positive D dimer Plan Acute coronary syndrome refractory to medical therapy, aspirin, Plavix, IV heparin infusion. Urgent coronary angiography is recommended for ongoing chest pain refractory to medical therapy. EKG is nondiagnostic due to 100 percent right ventricular pacing. Echocardiogram is recommended. History of CAD and PCI, patient will continue aspirin, Plavix, statin. Cardiomyopathy, no evidence of congestive heart failure on my examination. Biventricular pacemaker, defer to Dr. Pineda. Positive D dimer, negative CT angiography for PE. Thank you for your consultation. Please call me if you have any questions. Magnolia Harding MD, FACP, FACC, FSCAI, FHRS, CCDS Interventional Cardiology Cardiac Electrophysiology Vascular Medicine and Endovascular Interventions Clinical Quality Measures AMI/AHF: ASA po Prior to arrival: Yes DVT/VTE Risk/Contraindication: Risk Factor Score Per Nursin RFS Level Per Nursing on Admit: 4+=Very High Tulio HARDING MD Aug 23, 2018 15:02
--- NOTE | 2018-08-23 15:02 | Cardiac Procedure Note-CS/ASA ---
Pre-Procedure Note Pre-Op Procedure Note H&P Reviewed The H&P was reviewed, patient examined and no changes noted. Date H&P Reviewed: Aug 23, 2018 Time H&P Reviewed: 15:02 Conscious Sedation Pre-Proced Time 15:02 ASA Score 3 For ASA 3 and 4: Consider anesthesia and medical clearance. Also, for patients with a history of failed moderate sedation consider anesthesia. Airway Lungs Heart ASA score ASA 1: a normal healthy patient ASA 2: a patient with a mild systemic disease (mid diabetes, controlled hypertension, obesity ASA 3: a patient with a severe systemic disease that limits activity (angina , COPD, prior Myocardial infarction) ASA 4: a patient with an incapacitating disease that is a constant threat to life (CHF, renal failure) ASA 5: a moribund patient not expected to survive 24 hrs. (ruptured aneurysm) ASA 6: a declared brain patient whose organs are being harvested. For emergent operations, add the letter E after the classification Mallampati Classification Grade 1 Sedation Plan Analgesia, Amnesia, Plan communicated to team members, Discussed options with patient/fam, Discussed risks with patient/fam The patient is an appropriate candidate to undergo the planned procedure, sedation, and anesthesia. The patient immediately re-assessed prior to indication. Tulio GONZALES MD Aug 23, 2018 3:02 pm
[2018-08-23] MEDS ORDERED: HEParin 1000 UNIT/ML (10ML VIAL) FOR BOLUS ONE (15:31)
[2018-08-23] MEDS ORDERED: NITRO DRIP 25000 MCG/D5W 250 ML IV ONE (15:31)
[2018-08-23 16:30] VITALS: BP 115/73
[2018-08-23] MEDS ORDERED: PATIENT MAY USE OWN MEDS, ALL PO SCH (16:30)
[2018-08-23] MEDS: NS IV 1000 ML 1,000 ML IV SCH (16:30)
--- NOTE | 2018-08-23 16:32 | Coronary Angiography & PCI ---
Coronary Angiography & PCI DATE OF PROCEDURE: 08/23/18 INDICATION: Acute coronary syndrome refractory to medical therapy. PREOPERATIVE DIAGNOSIS: Acute coronary syndrome refractory to medical therapy. POSTOPERATIVE DIAGNOSIS: Severe first diagonal stenosis treated with drug- eluting stent. HISTORY: This is a 88-year-old gentleman with history of CAD with previous multiple stents to the RCA. He also has a biventricular pacemaker. He presented with severe chest pain 10/10 in the morning. He was given for nitroglycerin, Plavix 600 mg and started IV heparin. First set of troponin was negative. However the patient continues to have chest pain. On my examination which was 3 hours after presentation to the ER, he was still having 3/10 chest pain. EKG was nondiagnostic due to 100 percent biventricular pacing. Therefore , the patient was scheduled for urgent coronary angiography. PROCEDURES PERFORMED: 1.Coronary angiography. 2.Left heart catheterization. 3.aortic arch angiogram. 4. PCI to the first diagonal artery with a drug-eluting stent. COMPLICATIONS: None. SPECIMENS: None. ESTIMATED BLOOD LOSS: 10 mL ANESTHESIA: Conscious sedation ANTICOAGULATION: IV heparin CONTRAST: 240 mL. FLUOROSCOPY: 13 minutes. FLOUROSCOPY DOSE: 2480 mgy. PROCEDURE DETAILS: The patient is a 88 male and was brought to the laboratory secretary after informed consent was taken. All the risks and complications were explained in detail; this included the risk of bleeding, vascular damage, stroke , NV and even . The patient was draped and prepped in the usual sterile fashion. Access was gained in the right femoral artery with a 6 Angolan sheath. Coronary angiography and left heart catheterization was performed with the JR4 , JL4 catheter. Aortic arch angiogram was performed with a JR4 catheter. FINDINGS: 1.Left main: Mild disease. Less than 20 percent. 2.LAD: Bridging was noted in the mid LAD. Severe proximal first diagonal stenosis. Stenosis severity is 80 percent. Haziness is noted with suggest acute lesion. 3.Left circumflex artery: Mild disease. 4.RCA: Patent stents with mild in-stent restenosis. No significant stenosis is noted. 5.Left heart catheterization: Aortic pressure 150/71 mmHg. LV pressure 152/5 mmHg. LVEDP 18 mmHg. Normal LV function with no wall motion abnormalities. No gradient across the aortic valve. 6. Aortic arch angiogram: No evidence of dissection or aneurysm. Patent proximal segments of the large arteries including brachycephalic artery, common carotid artery, subclavian artery. RECOMMENDATIONS: Intervention is recommended to the first diagonal artery. INTERVENTION DETAILS: Our intention was to do balloon angioplasty to the first diagonal only, stent only if there is significant residual stenosis or dissection. We took a JL4 guide catheter, BMW and whisper guidewire, IV heparin for anticoagulation. ACT was done once which was 253 seconds. We placed the BMW wire in the first diagonal artery and the whisper wire in the LAD. We first took a emerge 2.0 X12 balloon and performed 2 inflations at 8 moriah for 39 seconds and second for 12 moriah for 61 seconds with no significant reduction in stenosis severity. We then took a Xience Glo 2.25X 15 mm drug-eluting balloon and placed it very carefully in the proximal segment of the first diagonal artery and deployed it at 9 moriah for 61 seconds. We also gave 400 g of intracoronary nitroglycerin. Post stent results showed no residual stenosis and KASH-3 flow. Both wires were taken out and angiogram showed excellent results. Patient tolerated the procedure well and did not have any complications. CONCLUSIONS: 1. PCI with drug-eluting stent to the first diagonal artery. Patent stents in the RCA. 2. Dual antiplatelet therapy with aspirin and Plavix for the next 1 year. 3. Continue IV fluids and monitor electrolytes and BUN, creatinine the morning. 4. Patient will follow with Dr. Pineda. Magnolia Harding MD, FACP, FACC, [facility] Interventional Cardiology Tulio HARDING MD Aug 23, 2018 16:32
--- NOTE | 2018-08-23 17:05 | Diagnostic Imaging Report ---
INDICATION: Right leg edema. Right leg venous Doppler study was performed in the routine fashion with color flow Doppler and waveform analysis. FINDINGS: The right common femoral vein, superficial femoral vein, popliteal vein and visualized portion of the tibial veins show normal compressibility and venous flow patterns. There is normal augmentation. IMPRESSION: No evidence of deep vein thrombosis of the major veins of the right leg. Dictated by: Dictated on workstation # [id number]
--- NOTE | 2018-08-23 17:10 | Diagnostic Imaging Report ---
INDICATION: Abdominal pain. Ultrasound of the right upper quadrant was performed in the routine fashion. The liver shows diffuse increased echogenicity compatible with fatty infiltration. There is no focal liver lesion seen although visualization is somewhat limited. Portal vein is patent with flow in the normal direction towards the liver. There are a couple of gallstones in the proximal portion of the gallbladder. The gallbladder wall does not appear appreciably thickened. Common duct is not well seen due to overlying gas. Pancreas is also not well seen due to overlying gas. The right kidney measures 10 cm in length and shows a 2.2 x 2.1 cm parapelvic cyst. There is no ascites. IMPRESSION: There are two gallstones near the gallbladder neck, without significant gallbladder wall thickening. Common duct could not be visualized due to overlying gas. There is diffuse fatty infiltration of the liver. Dictated by: Dictated on workstation # [id number]
--- OUTSIDE RECORDS SUMMARY | 2018-08-23 18:18 | XMS REPORT | Continuity of Care Document ---
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 DIS NEC 08/20/2011 Ot 428.0 CONGESTIVE HEART FAILURE NOS 07/13/2012 Ot 272.4 HYPERLIPIDEMIA NEC/NOS 07/13/2012 Ot 278.00 OBESITY, NOS 07/13/2012 Ot 401.9 HYPERTENSION NOS 07/13/2012 Ot 414.01 CORONARY ATHEROSCLEROSIS OF [place] CORON 07/13/2012 Ot 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 [...] 09/14/2012 Ot 787.91 DIARRHEA 03/28/2014 MARI BRADY FOOD TRAY ASSEMBLER Ot 716.90 ARTHROPATHY NOS-UNSPEC 03/28/2014 MARI BRADY FOOD TRAY ASSEMBLER Ot 729.5 PAIN IN LIMB 03/28/2014 MARI BRADY FOOD TRAY ASSEMBLER Ot 816.00 FX PHALANX, HAND NOS-CL 03/28/2014 MARI BRADY FOOD TRAY ASSEMBLER Ot E888.9 FALL NOS 03/28/2014 MARI BRADY FOOD TRAY ASSEMBLER Ot V45.01 CARDIAC PACEMAKER IN SITU 03/31/2014 [...] NEC/NOS 05/21/2016 Ot 414.01 CORONARY ATHEROSCLEROSIS OF [place] CORON 05/21/2016 Ot V58.69 OTH MED,LT, CURRENT USE 05/21/2016 Ot 272.4 HYPERLIPIDEMIA NEC/NOS 05/21/2016 Ot 414.01 CORONARY ATHEROSCLEROSIS OF [place] CORON 05/21/2016 Ot V58.69 OTH MED,LT, CURRENT [...] CCDS Ot I25.10 ATHSCL HEART DISEASE OF [place] CORONARY 11/11/2016 BOOM RITTER FACC, DELLA FACP [...] FACC, ALI FACP CCDS Ot Z79.899 OTHER INSURANCE EXAMINING CLERK (CURRENT) DRUG THERAPY 11/11/2016 BOOM RITTER FACC, ALI FACP CCDS Ot Z95.5 PRESENCE OF CORONARY ANGIOPLASTY IMPLANT 11/11/2016 BOOM RITTER FACC, ALI FACP CCDS Ot Z95.810 PRESENCE OF AUTOMATIC (IMPLANTABLE) CARD 11/18/2016 BOOM RITTER FACC, ALI FACP CCDS Ot E78.5 HYPERLIPIDEMIA, UNSPECIFIED 11/18/2016 BOOM RITTER FACC, ALI FACP CCDS Ot I25.10 ATHSCL HEART DISEASE OF [place] CORONARY 11/18/2016 BOOM RITTER FACC, ALI FACP [...] CCDS Ot I25.10 ATHSCL HEART DISEASE OF [place] CORONARY 11/28/2016 BOOM RITTER FACC, DELLA FACP CCDS Ot I25.5 ISCHEMIC CARDIOMYOPATHY 12/02/2016 BOOM RITTER FACC, ALI FACP CCDS Ot E66.9 OBESITY, UNSPECIFIED 12/02/2016 BOOM RITTER FACC, ALI FACP CCDS Ot E78.5 HYPERLIPIDEMIA, UNSPECIFIED 12/02/2016 BOOM RITTER FACC, ALI FACP CCDS Ot I10 ESSENTIAL (PRIMARY) HYPERTENSION 12/02/2016 BOOM RITTER FACC, ALI FACP CCDS Ot I25.10 ATHSCL HEART DISEASE OF [place] CORONARY 12/02/2016 BOOM RITTER FACC, ALI FACP [...] MD, FACC FACP CCDS Ot Z79.899 OTHER SNF (CURRENT) DRUG THERAPY 12/02/2016 DELLA NUR MD, [...] CCDS Ot I25.10 ATHSCL HEART DISEASE OF [place] CORONARY 12/04/2016 BOOM RITTER FACC, DELLA FACP [...] MD, FACC FACP CCDS Ot Z79.899 OTHER INSURANCE EXAMINING CLERK (CURRENT) DRUG THERAPY 12/04/2016 BOOM HAYDEN, ALI [...] CCDS Ot I25.10 ATHSCL HEART DISEASE OF [place] CORONARY 12/16/2016 BOOM RITTER FACC, ALI FACP [...] HEART DISEASE WITH HEART FA 03/27/2017 KATHRINE SMIHT MD, Ot I25.10 ATHSCL HEART DISEASE OF [place] CORONARY 03/27/2017 KATHRINE SMITH MD, Ot I48.91 UNSPECIFIED ATRIAL FIBRILLATION 03/27/2017 KATHRINE SMITH MD, Ot I50.22 CHRONIC SYSTOLIC (CONGESTIVE) HEART FAIL 03/27/2017 KATHRINE SMITH MD, Ot K40.90 UNIL INGUINAL HERNIA, W/O OBST OR GANGR, 03/27/2017 KATHRINE SMITH MD, Ot N40.0 BENIGN PROSTATIC HYPERPLASIA WITHOUT LOW 03/27/2017 KATHRINE SMITH MD, Ot N45.3 EPIDIDYMO-ORCHITIS 03/27/2017 KATHRINE SMITH MD, Ot Z79.4 INSURANCE EXAMINING CLERK (CURRENT) USE OF INSULIN 03/27/2017 KATHRINE SMITH [...] MD, Ot I25.10 ATHSCL HEART DISEASE OF [place] CORONARY 03/30/2017 KATHRINE SMITH MD, Ot I48.91 UNSPECIFIED ATRIAL FIBRILLATION 03/30/2017 KATHRINE SMITH MD, Ot I50.22 CHRONIC SYSTOLIC (CONGESTIVE) HEART FAIL 03/30/2017 KATHRINE SMITH MD, Ot K40.90 UNIL INGUINAL HERNIA, W/O OBST OR GANGR, 03/30/2017 KATHRINE SMITH MD, Ot N40.0 BENIGN PROSTATIC HYPERPLASIA WITHOUT LOW 03/30/2017 KATHRINE SMITH MD, Ot N45.3 EPIDIDYMO-ORCHITIS 03/30/2017 KATHRINE SMITH MD, Ot Z79.4 SNF (CURRENT) USE OF INSULIN 03/30/2017 KATHRINE SMITH [...] HYPERTENSIVE HEART DISEASE WITH HEART FA 04/02/2017 KATHIRNE SMITH MD, Ot I25.10 ATHSCL HEART DISEASE OF [place] CORONARY 04/02/2017 KATHRINE SMITH MD, Ot I48.91 UNSPECIFIED ATRIAL FIBRILLATION 04/02/2017 KATHRINE SMITH MD, Ot I50.22 CHRONIC SYSTOLIC (CONGESTIVE) HEART FAIL 04/02/2017 KATHRINE SMITH MD, Ot K40.90 UNIL INGUINAL HERNIA, W/O OBST OR GANGR, 04/02/2017 KATHRINE SMITH MD, Ot N40.0 BENIGN PROSTATIC HYPERPLASIA WITHOUT LOW 04/02/2017 KATHRINE SMITH MD, Ot N45.3 EPIDIDYMO-ORCHITIS 04/02/2017 KATHRINE SMITH MD, Ot Z79.4 INSURANCE EXAMINING CLERK (CURRENT) USE OF INSULIN 04/02/2017 KATHRINE SMITH [...] MD, Ot I25.10 ATHSCL HEART DISEASE OF [place] CORONARY 04/04/2017 KATHRINE SMITH MD, Ot I48.91 UNSPECIFIED ATRIAL FIBRILLATION 04/04/2017 KATHRINE SMITH MD, Ot I50.22 CHRONIC SYSTOLIC (CONGESTIVE) HEART FAIL 04/04/2017 KATHRINE SMITH MD, Ot K40.90 UNIL INGUINAL HERNIA, W/O OBST OR GANGR, 04/04/2017 KATHRINE SMITH MD, Ot N40.0 BENIGN PROSTATIC HYPERPLASIA WITHOUT LOW 04/04/2017 KATHRINE SMITH MD, Ot N45.3 EPIDIDYMO-ORCHITIS 04/04/2017 KATHRINE SMITH MD, Ot Z79.4 INSURANCE EXAMINING CLERK (CURRENT) USE OF INSULIN 04/04/2017 KATHRINE SMITH [...] MD, Ot I25.10 ATHSCL HEART DISEASE OF [place] CORONARY 04/06/2017 KATHRINE SMITH MD, Ot I48.91 UNSPECIFIED ATRIAL FIBRILLATION 04/06/2017 KATHRINE SMITH MD, Ot I50.22 CHRONIC SYSTOLIC (CONGESTIVE) HEART FAIL 04/06/2017 KATHRINE SMITH MD, Ot K40.90 UNIL INGUINAL HERNIA, W/O OBST OR GANGR, 04/06/2017 KATHRINE SMITH MD, Ot N40.0 BENIGN PROSTATIC HYPERPLASIA WITHOUT LOW 04/06/2017 KATHRINE SMITH MD, Ot N45.3 EPIDIDYMO-ORCHITIS 04/06/2017 KATHRINE SMITH MD, Ot Z79.4 INSURANCE EXAMINING CLERK (CURRENT) USE OF INSULIN 04/06/2017 KATHRINE SMITH [...] MD, Ot I25.10 ATHSCL HEART DISEASE OF [place] CORONARY 05/07/2017 KATHRINE SMITH MD, Ot I48.91 UNSPECIFIED ATRIAL FIBRILLATION 05/07/2017 KATHRINE SMITH MD, Ot I50.22 CHRONIC SYSTOLIC (CONGESTIVE) HEART FAIL 05/07/2017 KATHRINE SMITH MD, Ot K40.90 UNIL INGUINAL HERNIA, W/O OBST OR GANGR, 05/07/2017 KATHRINE SMITH MD, Ot N40.0 BENIGN PROSTATIC HYPERPLASIA WITHOUT LOW 05/07/2017 KATHRINE SMITH MD, Ot N45.3 EPIDIDYMO-ORCHITIS 05/07/2017 KATHRINE SMITH MD, Ot Z79.4 INSURANCE EXAMINING CLERK (CURRENT) USE OF INSULIN 05/07/2017 KATHRINE SMITH [...] MD, Ot I25.10 ATHSCL HEART DISEASE OF [place] CORONARY 07/03/2017 KATHRINE SMITH MD, Ot I48.91 UNSPECIFIED ATRIAL FIBRILLATION 07/03/2017 KATHRINE SMITH MD, Ot I50.22 CHRONIC SYSTOLIC (CONGESTIVE) HEART FAIL 07/03/2017 KATHRINE SMITH MD, Ot K40.90 UNIL INGUINAL HERNIA, W/O OBST OR GANGR, 07/03/2017 KATHRINE SMITH MD, Ot N40.0 BENIGN PROSTATIC HYPERPLASIA WITHOUT LOW 07/03/2017 KATHRINE SMITH MD, Ot N45.3 EPIDIDYMO-ORCHITIS 07/03/2017 KATHRINE SMITH MD, Ot Z79.4 INSURANCE EXAMINING CLERK (CURRENT) USE OF INSULIN 07/03/2017 KATHRINE SMITH [...] CCDS Ot I25.10 ATHSCL HEART DISEASE OF [place] CORONARY 07/10/2017 BOOM RTITER FACC, ALI FACP CCDS Ot I25.5 ISCHEMIC [...] CCDS Ot I25.10 ATHSCL HEART DISEASE OF [place] CORONARY 12/10/2017 BOOM RITTER FACC, DELLA FACP CCDS Ot I25.5 ISCHEMIC CARDIOMYOPATHY 12/10/2017 BOMO RITTER FACC, DELLA FACP CCDS Ot E11.9 TYPE 2 DIABETES MELLITUS WITHOUT COMPLIC 12/10/2017 BOOM RITTER FACC, DELLA FACP CCDS Ot E78.4 OTHER HYPERLIPIDEMIA 12/10/2017 BOOM RITTER FACC, DELLA FACP CCDS Ot I10 ESSENTIAL (PRIMARY) HYPERTENSION 12/10/2017 BOOM RITTER FACC, ALI FACP CCDS Ot I25.10 ATHSCL HEART DISEASE OF [place] CORONARY 12/10/2017 BOOM RITTER FACC, ALI FACP [...] CCDS Ot I25.10 ATHSCL HEART DISEASE OF [place] CORONARY 12/29/2017 BOOM RITTER FACC, ALI FACP [...] CCDS Ot I25.10 ATHSCL HEART DISEASE OF [place] CORONARY 01/12/2018 BOOM RITTER FACC, ALI FACP [...] CCDS Ot I25.10 ATHSCL HEART DISEASE OF [place] CORONARY 01/28/2018 BOOM MD FACC, ALI FACP CCDS Ot I25.5 ISCHEMIC CARDIOMYOPATHY 01/28/2018 BOOM RITTER FACC, ALI FACP CCDS Ot E11.9 TYPE 2 DIABETES MELLITUS WITHOUT COMPLIC 01/28/2018 BOOM RITTER FAC, ALI FACP CCDS Ot E78.4 OTHER HYPERLIPIDEMIA 01/28/2018 BOOM RITTER FACC, ALI FACP CCDS Ot I10 ESSENTIAL (PRIMARY) HYPERTENSION 01/28/2018 BOOM RITTER FAC, ALI FACP CCDS Ot I25.10 ATHSCL HEART DISEASE OF [place] CORONARY 01/28/2018 BOOM RITTER FAC, ALI FACP CCDS Ot I25.5 ISCHEMIC CARDIOMYOPATHY 01/28/2018 BOOM RITTER [facility], ALI FACP CCDS Ot I48.92 UNSPECIFIED ATRIAL FLUTTER 01/28/2018 BOOM RITTER [facility], ALI FACP CCDS Ot I49.5 SICK SINUS SYNDROME 01/28/2018 Ot R06.02 SHORTNESS OF BREATH 01/28/2018 Ot R22.41 LOCALIZED SWELLING, MASS AND LUMP, RIGHT 01/28/2018 FEDERICO JON MD Ot N43.3 HYDROCELE, UNSPECIFIED 01/28/2018 FEDERICO JON MD Ot N45.1 EPIDIDYMITIS 01/28/2018 ALIYAH RITTER, ROXANNA Oconnell Ot M54.16 RADICULOPATHY, LUMBAR REGION 01/29/2018 BAIJENNI ESCUDERO L PILOT SUBMERSIBLE Ot I10 ESSENTIAL (PRIMARY) HYPERTENSION 01/29/2018 BAIMA JENNI L PILOT SUBMERSIBLE Ot I25.10 ATHSCL HEART DISEASE OF [place] CORONARY 01/29/2018 BAITAHIRA ESCUDEROHER L PILOT SUBMERSIBLE Ot I25.5 ISCHEMIC CARDIOMYOPATHY 01/29/2018 JENNI RALPH L PILOT SUBMERSIBLE Ot I48.92 UNSPECIFIED ATRIAL FLUTTER 01/29/2018 JENNI RALPH PILOT SUBMERSIBLE Ot R06.09 OTHER FORMS OF DYSPNEA 01/29/2018 [...] CCDS Ot I25.10 ATHSCL HEART DISEASE OF [place] CORONARY 01/29/2018 BOOM RITTER FACC, DELLA FACP CCDS Ot I25.5 ISCHEMIC CARDIOMYOPATHY 01/29/2018 BOOM RITTER FACC, ALI FACP CCDS Ot E11.9 TYPE 2 DIABETES MELLITUS WITHOUT COMPLIC 01/29/2018 BOOM RITTER FACC, ALI FACP CCDS Ot E78.4 OTHER HYPERLIPIDEMIA 01/29/2018 BOOM RITTER FACC, ALI FACP CCDS Ot I10 ESSENTIAL (PRIMARY) HYPERTENSION 01/29/2018 BOOM RITTER FACC, ALI FACP CCDS Ot I25.10 ATHSCL HEART DISEASE OF [place] CORONARY 01/29/2018 BOOM RITTER FACC, ALI FACP [...] CCDS Ot I25.10 ATHSCL HEART DISEASE OF [place] CORONARY 02/09/2018 BOOM RITTER FACC, ALI FACP CCDS Ot I25.5 ISCHEMIC CARDIOMYOPATHY 02/09/2018 BOOM RITTER FACC, ALI FACP CCDS Ot E11.9 TYPE 2 DIABETES MELLITUS WITHOUT COMPLIC 02/09/2018 BOOM MD FACC, ALI FACP CCDS Ot E78.4 OTHER HYPERLIPIDEMIA 02/09/2018 BOOM RITTER FACC, ALI FACP CCDS Ot I10 ESSENTIAL (PRIMARY) HYPERTENSION 02/09/2018 BOOM RITTER FACC, ALI FACP CCDS Ot I25.10 ATHSCL HEART DISEASE OF [place] CORONARY 02/09/2018 BOOM RITTER FACC, ALI FACP [...] Philip Ot N45.1 EPIDIDYMITIS 02/09/2018 JENNI RALPH PILOT SUBMERSIBLE Ot I10 ESSENTIAL (PRIMARY) HYPERTENSION 02/09/2018 JENNI RALPH L PILOT SUBMERSIBLE Ot I25.10 ATHSCL HEART DISEASE OF [place] CORONARY 02/09/2018 JENNI RALPH PILOT SUBMERSIBLE Ot I25.5 ISCHEMIC CARDIOMYOPATHY 02/09/2018 JENNI RALPH PILOT SUBMERSIBLE Ot I48.92 UNSPECIFIED ATRIAL FLUTTER 02/09/2018 JENNI RALPH PILOT SUBMERSIBLE Ot R06.09 OTHER FORMS OF DYSPNEA 2018 [...] WITH RADICULOPATHY, RUFINA 03/23/2018 BAIJENNI ESCUDERO L PILOT SUBMERSIBLE Ot I10 ESSENTIAL (PRIMARY) HYPERTENSION 03/23/2018 BAIMA JENNI L PILOT SUBMERSIBLE Ot I25.10 ATHSCL HEART DISEASE OF [place] CORONARY 03/23/2018 BAIMA JENNI L PILOT SUBMERSIBLE Ot I25.5 ISCHEMIC CARDIOMYOPATHY 03/23/2018 BAIMA, JENNI L PILOT SUBMERSIBLE Ot I48.92 UNSPECIFIED ATRIAL FLUTTER 03/23/2018 BAIMA JENNI L PILOT SUBMERSIBLE Ot R06.09 OTHER FORMS OF DYSPNEA 03/30/2018 MINI BUSTAMANTE, JOE L Ot 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, LUMBAR REGION 03/30/2018 MINI DO, JOE Perez Ot M47.26 OTHER SPONDYLOSIS WITH RADICULOPATHY, RUFINA 04/01/2018 MORALESKENA JENNI L PILOT SUBMERSIBLE Ot I10 ESSENTIAL (PRIMARY) HYPERTENSION 04/01/2018 MORALESKENA JENNI L PILOT SUBMERSIBLE Ot I25.10 ATHSCL HEART DISEASE OF [place] CORONARY 04/01/2018 MORALESMA JENNI L PILOT SUBMERSIBLE Ot I25.5 ISCHEMIC CARDIOMYOPATHY 04/01/2018 BAIMA JENNI L PILOT SUBMERSIBLE Ot I48.92 UNSPECIFIED ATRIAL FLUTTER 04/01/2018 MORALESKENA JENNI L PILOT SUBMERSIBLE Ot R06.09 OTHER FORMS OF DYSPNEA 04/06/2018 [...] CCDS Ot I25.10 ATHSCL HEART DISEASE OF [place] CORONARY 04/06/2018 BOOM RITTER FACC, ALI FACP [...] Perez Ot M54.16 RADICULOPATHY, LUMBAR REGION 04/15/2018 JENIN RALPH PILOT SUBMERSIBLE Ot I10 ESSENTIAL (PRIMARY) HYPERTENSION 04/15/2018 JENNI RALPH PILOT SUBMERSIBLE Ot I25.10 ATHSCL HEART DISEASE OF [place] CORONARY 04/15/2018 JENNI RALPH PILOT SUBMERSIBLE Ot I25.5 ISCHEMIC CARDIOMYOPATHY 04/15/2018 JENNI RALPH PILOT SUBMERSIBLE Ot I48.92 UNSPECIFIED ATRIAL FLUTTER 04/15/2018 JENNI RALPH PILOT SUBMERSIBLE Ot R06.09 OTHER FORMS OF DYSPNEA 04/15/2018 [...] CCDS Ot I25.10 ATHSCL HEART DISEASE OF [place] CORONARY 04/15/2018 BOOM RITTER FACC, DELLA FACP [...] MD, Ot I25.10 ATHSCL HEART DISEASE OF [place] CORONARY 04/19/2018 MANDEEP FRIEDMAN MD, Ot I25.5 [...] ADULT 04/19/2018 MANDEEP FRIEDMAN MD Ot Z79.4 INSURANCE EXAMINING CLERK (CURRENT) USE OF INSULIN 04/19/2018 MANDEEP FRIEDMAN MD Ot Z79.82 INSURANCE EXAMINING CLERK (CURRENT) USE OF ASPIRIN 04/19/2018 MANDEEP FRIEDMAN MD, Ot Z79.899 OTHER SNF (CURRENT) DRUG THERAPY 04/19/2018 MANDEEP FRIEDMAN MD, [...] MD, Ot I25.10 ATHSCL HEART DISEASE OF [place] CORONARY 04/23/2018 MANDEEP FRIEDMAN MD, Ot I25.5 [...] ADULT 04/23/2018 MANDEEP FRIEDMAN MD, Ot Z79.4 INSURANCE EXAMINING CLERK (CURRENT) USE OF INSULIN 04/23/2018 MANDEEP FRIEDMAN MD, Ot Z79.82 SNF (CURRENT) USE OF ASPIRIN 04/23/2018 MANDEEP FRIEDMAN MD, Ot Z79.899 OTHER INSURANCE EXAMINING CLERK (CURRENT) DRUG THERAPY 04/23/2018 MANDEEP FRIEDMAN MD, [...] MD, Ot I25.10 ATHSCL HEART DISEASE OF [place] CORONARY 04/27/2018 MANDEEP FRIEDMAN MD, Ot I25.5 [...] ADULT 04/27/2018 MANDEEP FRIEDMAN MD, Ot Z79.4 SNF (CURRENT) USE OF INSULIN 04/27/2018 MANDEEP FRIEDMAN MD Ot Z79.82 SNF (CURRENT) USE OF ASPIRIN 04/27/2018 MANDEEP FRIEDMAN MD Ot Z79.899 OTHER SNF (CURRENT) DRUG THERAPY 04/27/2018 MANDEEP FRIEDMAN MD [...] CONSTIPATION, UNSPECIFIED 05/09/2018 BERNOT, EDWIN Ot Z79.4 INSURANCE EXAMINING CLERK (CURRENT) USE OF INSULIN 05/09/2018 BERNOT, EDWIN Ot Z87.891 PERSONAL HISTORY OF NICOTINE DEPENDENCE 05/09/2018 BERNOT, DEWIN Ot Z88.0 ALLERGY STATUS TO PENICILLIN 05/09/2018 [...] CONSTIPATION, UNSPECIFIED 05/11/2018 BERNOT, EDWIN Ot Z79.4 SNF (CURRENT) USE OF INSULIN 05/11/2018 BERNOT, EDWIN Ot Z87.891 PERSONAL HISTORY OF NICOTINE DEPENDENCE 05/11/2018 BERNOT, EDWIN Ot Z88.0 ALLERGY STATUS TO PENICILLIN 05/11/2018 BERNOT, EDWIN Ot Z95.5 PRESENCE OF CORONARY ANGIOPLASTY IMPLANT 08/12/2018 JOE MORSE DO Ot M54.16 RADICULOPATHY, LUMBAR REGION Procedures Code Description Performed By Performed On 60.29 01/27/2011 [id number] DRAINAGE OF RIGHT KNEE JOINT, PERCUTANEO 04/16/2018 [id number] EXCISION OF RIGHT KNEE JOINT, PERC ENDO [...] CLDY NRG Body fluid leukocytes count (number/volume) 95507 /uL NRG Body fluid erythrocytes count (number/volume) [...] CLDY NRG Body fluid leukocytes count (number/volume) 05767 /uL NRG Body fluid erythrocytes count (number/volume) 23208 /uL NRG Manual body fluid polymorphonuclear cells/100 [...] Bacteria identification in isolate by anaerobe culture [facility] Gram stain microscopy - 04/16/18 14:11 GRAM STAIN RESULT NUMEROUS WBC'S, NO BACTERIA OBSERVED NR Bacteria identification in wound by culture - 04/16/18 14:11 Bacteria identification in wound by culture [facility] Capillary blood glucose measurement by glucometer (mass/volume) [...] 08/23/18 10:09 BNP level 46.1 pg/mL <100.0 Lipase - 08/23/18 10:09 Lipase 9 U/L 8-78 Serum or plasma troponin i.cardiac measurement (mass/volume) - 08/23/18 13:55 Serum or plasma troponin i.cardiac measurement (mass/volume) < ng/ mL <0.30 Encounters ACCT No. Visit Date/Time Discharge Status Pt. Type Provider Facility Loc./Unit Complaint [id number] 05/09/2018 14:16:00 05/09/2018 16:42:00 DIS Emergency EDWIN MADRID [facility] ER CONSTIPATION [id number] 04/16/2018 13:27:00 04/19/2018 12:35:00 DIS Inpatient MANDEEP FRIEDMAN MD [facility] 4TH KNEE CLEAN OUT [id number] 04/08/2018 14:11:00 04/08/2018 23:59:59 CLS Outpatient JOE MORSE DO [facility] CARD LUMBAR RADICULOPATHY M54.16 [id number] 03/18/2018 10:32:00 03/18/2018 23:59:59 CLS Outpatient JOE MORSE DO [facility] RAD LUMBAR RADICULOPATHY [id number] 03/08/2018 14:04:00 03/08/2018 23:59:59 CLS Outpatient BOOM RITTER FACDELLA Wilder FACP CCDS [facility] PULM R06.02 SOB [id number] 2018 13:56:00 2018 15:21:00 DIS Outpatient JOE MORSE DO [facility] CARD M54.16 LUMBAR RADICULOPATHY [id number] 01/06/2018 10:52:00 02/02/2018 11:02:00 DIS Outpatient ROXANNA LY MD [facility] REHAB R LUMBAR RADICULOPATHY [id number] 01/27/2018 13:28:00 01/27/2018 23:59:59 CLS Outpatient JENNI RALPH [facility] CARD R06.09 SPIVEY [id number] 03/26/2017 08:46:00 03/27/2017 13:45:00 DIS Outpatient KATHRINE SMITH MD [facility] LEFT INGUINAL HERNIA [id number] 03/20/2017 05:43:00 03/20/2017 10:30:00 DIS Outpatient KATHRINE SMITH MD [facility] PREOP LEFT INGUINAL HERNIA [id number] 02/25/2017 14:15:00 03/03/2017 13:55:00 DIS Outpatient ALEXANDRA SHAH DO [facility] REHAB ASH HIP PAIN; LOW BACK PAIN [id number] 12/10/2016 13:59:00 12/10/2016 23:59:59 CLS Outpatient FEDERICO JON MD [facility] RAD BILAT HYDROCELES [id number] 12/01/2016 13:54:00 12/01/2016 23:59:59 CLS Outpatient DELLA NUR MD, FACC, FACP CCDS [facility] RT CAD,HTN,HLP [id number] 11/18/2016 10:16:00 11/18/2016 23:59:59 CLS Outpatient DELLA NUR MD, FACC, FACP CCDS [facility] LAB I25.5,E78.5, I25.10 [id number] 11/11/2016 06:57:00 11/11/2016 14:15:00 DIS Outpatient DELLA NUR MD, FACC, FACP CCDS [facility] CATH CAD,SOB, ANGINA,DM [id number] 10/21/2016 11:12:00 10/21/2016 23:59:59 CLS Outpatient DELLA NUR MD, FACC FACP CCDS [facility] RAD RIGHT LEG CLAUDICATION [id number] 11/23/2015 10:23:00 11/23/2015 13:45:00 DIS Outpatient ROXANNA LY MD [facility] LOWER GI BLEED [id number] 11/21/2015 05:37:00 11/21/2015 23:59:59 CLS Outpatient ROXANNA LY MD [facility] PREOP LOWER GI BLEED [id number] 05/02/2015 16:10:00 05/02/2015 23:59:59 CLS Outpatient NI DPM, LARRY Q [facility] RAD SWELLING ,OSTEOLYLITIS, LESION TO LT 2ND [id number] 09/20/2014 11:02:00 09/20/2014 16:20:00 DIS Outpatient TERELL DHALIWAL MD [facility] SKIN LESIONS [id number] 09/15/2014 09:40:00 09/15/2014 23:59:59 CLS Outpatient TERELL DHALIWAL MD [facility] PREOP SKIN LESIONS [id number] 03/31/2014 08:49:00 03/31/2014 10:43:00 DIS Emergency RENE EDDY MD [facility] ER FALL/RIGHT FOOT PAIN [id number] 03/28/2014 19:36:00 03/28/2014 20:10:00 DIS Emergency MARI BRADY APRN [facility] ER R HAND PAIN [id number] 03/16/2013 15:55:00 03/16/2013 23:59:59 CLS Outpatient BOOM RITTER FACMeño, DELLA BENAVIDES CCDS [facility] LAB HYPERTENSION [id number] 08/23/2018 10:24:00 Document Registration [id number] 11/25/2016 09:31:00 Document Registration [id number] 09/15/2012 00:00:00 Document Registration [id number] 08/26/2012 18:17:00 Document Registration [id number] 07/26/2012 09:56:00 Document Registration [id number] 07/13/2012 05:33:00 Document Registration [id number] 07/12/2012 08:53:00 Document Registration [id number] 06/16/2012 09:56:00 Document Registration [id number] 05/13/2012 15:59:00 Document Registration [id number] 05/10/2012 08:49:00 Document Registration [id number] 05/10/2012 08:43:00 Document Registration [id number] 11/07/2011 09:14:00 Document Registration [id number] 08/19/2011 05:33:00 Document Registration [id number] 08/18/2011 08:00:00 Document Registration [id number] 01/31/2011 08:59:00 Document Registration [id number] 01/27/2011 06:35:00 Document Registration [id number] 01/24/2011 11:35:00 Document Registration [id number] 01/17/2011 22:42:00 Document Registration [id number] 01/15/2011 17:20:00 Document Registration [id number] 01/09/2011 05:56:00 Document Registration [id number] 01/07/2011 13:59:00 Document Registration [id number] 05/02/2015 16:11:35 ACT Document Registration [id number] 06/23/2017 09:11:00 06/23/2017 23:59:00 RACHEL Lyons
[2018-08-23] MEDS ORDERED: NITROGLYCERIN 0.4 MG SL TABS BTL 25'S SL PRN (19:00)
[2018-08-23] MEDS ORDERED: fentaNYL INJECTION 100 MCG/2 ML AMP IV PRN (19:00)
[2018-08-23 20:00] VITALS: BP 96/58
[2018-08-23] MEDS: inSUlin ASPART (NovoLOG) 1 UNIT/0.01 ML (CHARGE PER UNIT) SC SCH (21:05)
[2018-08-24 00:48] VITALS: BP 100/59
[2018-08-24] MEDS: NS IV 1000 ML 1,000 ML IV SCH (02:44)
[2018-08-24 04:00] VITALS: BP 128/58
[2018-08-24 04:52] LABS: HEMOGLOBIN 10.2 G/DL (13.3-17.7); MEAN PLATELET VOLUME 9.1 FL (7.4-10.4); RED BLOOD COUNT 3.24 10^6/uL (4.35-5.85); RED CELL DISTRIBUTION WIDTH 13.3 % (10.0-14.5); WHITE BLOOD COUNT 5.8 10^3/uL (4.3-11.0)
[2018-08-24 05:16] LABS: BUN/CREATININE RATIO 18; CALCIUM 9.2 MG/DL (8.5-10.1); CARBON DIOXIDE 19 MMOL/L (21-32); CHLORIDE 110 MMOL/L (98-107); CHOLESTEROL 109 MG/DL (< 200); CREATININE SERUM 0.89 MG/DL (0.60-1.30); GFR ESTIMATED > 60; GLUCOSE 182 MG/DL (70-105); HDL CHOLESTEROL 30 MG/DL (40-60); SODIUM 136 MMOL/L (135-145); TRIGLYCERIDES 98 MG/DL (<150); VLDL CHOLESTEROL 20 MG/DL (5-40)
[2018-08-24] MEDS: inSUlin ASPART (NovoLOG) 1 UNIT/0.01 ML (CHARGE PER UNIT) SC SCH ×4 (05:35→21:25)
[2018-08-24 08:00] VITALS: BP 115/73
[2018-08-24] MEDS: CLOPIDOGREL 75 MG (PLAVIX) TABLET PO SCH (08:43)
[2018-08-24] MEDS: ASPIRIN E.C. 81 MG (ECOTRIN) TAB PO SCH (08:43)
[2018-08-24] MEDS ORDERED: CLOP75TA28 PO ×2 (08:59)
[2018-08-24] MEDS ORDERED: ASPI-983 PO ×2 (08:59)
[2018-08-24] MEDS ORDERED: POTA10TA10 PO ×2 (08:59)
--- NOTE | 2018-08-24 09:01 | Discharge Inst-Cardiology ---
Discharge Inst-Cardiac Discharge Medications New Medications: Potassium Chloride (Potassium Chloride) 10 Meq Tablet.er 10 MEQ PO BID, #60 TAB Aspirin (Aspirin EC) 81 Mg Tablet.dr 81 MG PO DAILY, #90 TAB 5 Refills Clopidogrel Bisulfate (Clopidogrel) 75 Mg Tablet 75 MG PO DAILY, #30 TAB 5 Refills Continued Medications: Ascorbic Acid (Vitamin C 500 Mg) 500 Mg Tablet 500 MG PO DAILY, TAB Brimonidine Tartrate (Alphagan P) 10 Ml Drops 1 DROP OU BID one drop both eyes bid Cholecalciferol (Vitamin D3) 1,000 Unit Capsule 1000 UNIT PO DAILY Clindamycin HCl (Clindamycin HCl) 300 Mg Capsule 300 MG PO TID, #21 CAP Fluoxetine HCl (Fluoxetine HCl) 20 Mg Tablet 20 MG PO BID, TAB Furosemide (Furosemide) 40 Mg Tablet 40 MG PO DAILY Hydrocodone/Acetaminophen (Lortab 7.5-325 mg Tablet) 1 Each Tablet 1-2 EACH PO Q4H, #35 TAB Insulin Detemir (Levemir Flextouch) 100 Unit/1 Ml Insuln.pen 30 UNIT SQ BID, EA Nitroglycerin (Nitrostat) 0.4 Mg Subl 0.4 MG SL PRN Pravastatin Sodium (Pravachol) 20 Mg Tablet 20 MG PO HS, TAB Ramipril (Ramipril) 2.5 Mg Capsule 2.5 MG PO DAILY, CAP Discontinued Medications: Naproxen (Naprosyn) 500 Mg Tablet 500 MG PO NEEDED PRN for PAIN-MILD, TAB New, Converted or Re-Newed RX: Transmitted to Pharmacy Patient Instructions Patient Instructions: Please schedule follow up appointment to see Dr. Pineda in one week JENNI RALPH Aug 24, 2018 09:01
--- NOTE | 2018-08-24 09:07 | Progress Note-Cardiology ---
Cardiology SOAP Progress Note Subjective: Reports chest pain at the time of admission has improved. He continues to c/o some ACW discomfort 2/10 on a 1-10 pain scale. Reports mild dyspnea which is chronic and unchanged. No c/o right groin discomfort. Objective: I&O/Vital Signs 08/24/18 08/24/18 08/24/18 08/24/18 06:22 07:00 08:00 08:00 Temp 99.4 99.2 Pulse 76 78 Resp 20 B/P (MAP) 115/73 (87) Pulse Ox 94 O2 Delivery NIV CPAP Room Air 08/24/18 12:00 Temp 98.8 Pulse 90 Resp 22 B/P (MAP) 121/59 (79) Pulse Ox 92 O2 Delivery Room Air 08/24/18 00:00 Intake Total 400 ml Output Total 1100 ml Balance -700 ml Weight (Pounds): 257 Weight (Ounces): 3.0 Weight (Calculated Kilograms): 116.097192 Side: right Groin site without hematoma: Yes Condition: DP/PT pulses palpable, extremity w/d/p Bruising: moderated bruising Constitutional: appears stated age, AAO x 3, well-developed, well-nourished Respiratory: chest is bilaterally symmetric, lungs clear to auscultation Cardiovascular: regular rate-rhythm, S1 and S2 Gastrointestional: No tender; soft, round, audible bowel sounds Extremities: no lower extremity edema bilateral Neurologic/Psychiatric: power is 5/5 both on sides Skin: No rash, No ulcerations Results/Procedures: Labs Laboratory Tests 08/23/18 20:57: Glucometer 226H 08/24/18 04:45: White Blood Count 5.8, Red Blood Count 3.24L, Hemoglobin 10.2#L, Hematocrit 31L , Mean Corpuscular Volume 94, Mean Corpuscular Hemoglobin 31, Mean Corpuscular Hemoglobin Concent 33, Red Cell Distribution Width 13.3, Platelet Count 171, Mean Platelet Volume 9.1, Sodium Level 136, Potassium Level 4.0, Chloride Level 110H, Carbon Dioxide Level 19L, Anion Gap 7, Blood Urea Nitrogen 16, Creatinine 0.89, Estimat Glomerular Filtration Rate > 60, BUN/Creatinine Ratio 18, Glucose Level 182H, Calcium Level 9.2, Triglycerides Level 98, Cholesterol Level 109, LDL Cholesterol Direct 65, VLDL Cholesterol 20, HDL Cholesterol 30L 08/24/18 11:27: Glucometer 233H Procedures S/P cardiac cath with successful intervention on by Dr. Harding. Please refer to his cardiac cath report of 08-23-18 A/P: Assessment: Chest pain - improved following cardiac cath with successful intervention of CAD - PCI with drug-eluting stent to the first diagonal artery. Patent stents in the RCA per cardiac cath of 08-23-[address] Harding. Previous history of drug -eluting stenting with Promus 3 x 12 mm stent to the right coronary artery in January 2010. Subsequently, in July 2011 he received Promus 3 x 12 mm to the proximal right coronary and Promus 2.5 x 23 mm stent to the distal right coronary. Last cardiac catheterization was carried on 11/11/16 and it showed mod CAD with patent stents and ischemic cardiomyopathy with LVEF 40-45% (which is and improvement compared a card cath of 2011 that had shown an EF of 25-30%) Echocardiogram of 08-23-[address] Harding showed concentric hypertrophy; LVEF 55- 65%; LA dilated; mild MR; mild to mod AoR and TR Transient slurred speech on 04/17/18: Tiny subdural hemorrhage measuring less than 3 mm thick along the right posterior parietal convexity on CT scan of , stable on CT scan of 04/18/18 S/p surgery for septic arthritis of the R knee on 04/16/18 Chronic systolic CHF, currently clinically compensated Chronic leg weakness, likely d/t spinal stenosis seen on CT of the lumbar spine from March 18, 2018 - management per Dr Vidal Chronic systolic congestive heart failure, improved following upgrade to a biventricular dual-chamber pacemaker defibrillator implantation. The left ventricular lead has been a problem but is functioning normally following most recent adjustment of early January 2013 by his wax pourer, Dr. Hilario. The device is functioning normally per interrogation of 02/03/18 Hypertension, controlled. Hyperlipidemia, being treated with Crestor. This is being followed by Dr Vidal Maturity onset diabetes mellitus, insulin-requiring Obesity with a body mass index of approximately 34 Relative intolerance to ERNATA inhibitors and angiotensin receptor blockers because of low blood pressure, but he has lately been able to tolerate a low dose of RENATA inhibitors without problems. Sinus node dysfunction treated with dual-chamber pacemaker implantation. History of hemorrhoidectomy and transurethral resection of the prostate. This is being followed by Dr. Pearson. History of paroxysmal atrial flutter, which has not recurred in the recent past. H/o gout, being followed by Dr Vidal Presbycusis R-sided capal tunnel syndrome for which surgery has been recommended to him by his surgeon but he has not followed through. Mild bilat carotid plaque without any evidence of hemodynamic significance per carotid u/s of 04/20/18 Chronic bilat leg swelling, likely due to venous insufficiency, stable No evidence of any significant obstructive PAD on seg pressures of Sep 2016 PFT from November 2016 showed spirometry WNL and lung volume WNL Scrotal u/s form November 2016 showed mod right hydrocele and a fat-containing left inguinal hernia with mild extension into the scrotum - being managed by Dr. Pearson L hernia repair and L orchiectomy with Imtiaz Jauregui and Michel in early 2016 Plan: Ambulate with assistance today Continue current medication regimen D/C IVF Restart home medications (RENATA, statin, insulin) Mild anemia - repeat lab in the morning Clinical Quality Measures AMI/AHF: ASA po Prior to arrival: Yes JENNI RALPH Aug 24, 2018 09:07
[2018-08-24] MEDS ORDERED: FUROSEMIDE 40 MG (LASIX) TAB PO NR (10:30)
[2018-08-24] MEDS ORDERED: RAMIPRIL 2.5 MG (ALTACE) CAP PO NR (10:30)
[2018-08-24 12:00] VITALS: BP 121/59
--- NOTE | 2018-08-24 15:40 | Progress Note-Cardiology ---
Cardiology SOAP Progress Note Subjective: Reports mild, continuing L parasternal and mid sternal discomfort, albeit different than what he came in with and much less intense Chronic exertional shortness of breath, unchanged Chronic mod leg swelling, unchanged No palp or syncope Objective: I&O/Vital Signs 08/24/18 08/24/18 08/24/18 08/24/18 04:00 06:22 07:00 08:00 Temp 100.5 99.4 99.2 Pulse 75 76 78 Resp 20 20 B/P (MAP) 128/58 (81) 115/73 (87) Pulse Ox 91 94 O2 Delivery Room Air NIV CPAP 08/24/18 08/24/18 08:00 12:00 Temp 98.8 Pulse 90 Resp 22 B/P (MAP) 121/59 (79) Pulse Ox 92 O2 Delivery Room Air Room Air 08/24/18 00:00 Intake Total 400 ml Output Total 1100 ml Balance -700 ml Weight (Pounds): 257 Weight (Ounces): 3.0 Weight (Calculated Kilograms): 116.188653 Side: right Groin site without hematoma: Yes Condition: DP/PT pulses palpable, extremity w/d/p Bruising: moderated bruising Constitutional: appears stated age, AAO x 3, well-developed, well-nourished Respiratory: chest is bilaterally symmetric, lungs clear to auscultation Cardiovascular: regular rate-rhythm, S1 and S2 Gastrointestional: No tender; soft, round, audible bowel sounds Extremities: no lower extremity edema bilateral Neurologic/Psychiatric: power is 5/5 both on sides Skin: No rash, No ulcerations Results/Procedures: Labs Laboratory Tests 08/23/18 20:57: Glucometer 226H 08/24/18 04:45: White Blood Count 5.8, Red Blood Count 3.24L, Hemoglobin 10.2#L, Hematocrit 31L , Mean Corpuscular Volume 94, Mean Corpuscular Hemoglobin 31, Mean Corpuscular Hemoglobin Concent 33, Red Cell Distribution Width 13.3, Platelet Count 171, Mean Platelet Volume 9.1, Sodium Level 136, Potassium Level 4.0, Chloride Level 110H, Carbon Dioxide Level 19L, Anion Gap 7, Blood Urea Nitrogen 16, Creatinine 0.89, Estimat Glomerular Filtration Rate > 60, BUN/Creatinine Ratio 18, Glucose Level 182H, Calcium Level 9.2, Triglycerides Level 98, Cholesterol Level 109, LDL Cholesterol Direct 65, VLDL Cholesterol 20, HDL Cholesterol 30L 08/24/18 11:27: Glucometer 233H Laboratory Tests 08/23/18 10:09 08/24/18 04:45 A/P: Assessment: Chest pain - improved following cardiac cath with successful intervention of . Some continuing chest discomfort does not appear cardiac CAD - Last cardiac cath of 08-23-[address] Harding: PCI with drug-eluting stent to the first diagonal artery, patent stents in the RCA . Previous history of drug-eluting stenting with Promus 3 x 12 mm stent to the right coronary artery in January 2010. Subsequently, in July 2011 he received Promus 3 x 12 mm to the proximal right coronary and Promus 2.5 x 23 mm stent to the distal right coronary. Last cardiac catheterization was carried on 11/11/16 and it showed mod CAD with patent stents and ischemic cardiomyopathy with LVEF 40-45% (which is and improvement compared a card cath of 2011 that had shown an EF of 25-30%) Echocardiogram of 08-23-[address] Harding showed concentric hypertrophy; LVEF 55- 65%; LA dilated; mild MR; mild to mod AoR and TR Transient slurred speech on 04/17/18: Tiny subdural hemorrhage measuring less than 3 mm thick along the right posterior parietal convexity on CT scan of , stable on CT scan of 04/18/18 S/p surgery for septic arthritis of the R knee on 04/16/18 Chronic systolic CHF, currently clinically compensated Chronic leg weakness, likely d/t spinal stenosis seen on CT of the lumbar spine from March 18, 2018 - management per Dr Vidal Chronic systolic congestive heart failure, improved following upgrade to a biventricular dual-chamber pacemaker defibrillator implantation. The left ventricular lead has been a problem but is functioning normally following most recent adjustment of early January 2013 by his retail store associate, Dr. Hilario. The device is functioning normally per interrogation of 02/03/18 Hypertension, controlled. Hyperlipidemia, being treated with Crestor. This is being followed by Dr Vidal Maturity onset diabetes mellitus, insulin-requiring Obesity with a body mass index of approximately 34 Relative intolerance to RENATA inhibitors and angiotensin receptor blockers because of low blood pressure, but he has lately been able to tolerate a low dose of RENATA inhibitors without problems. Sinus node dysfunction treated with dual-chamber pacemaker implantation. History of hemorrhoidectomy and transurethral resection of the prostate. This is being followed by Dr. Pearson. History of paroxysmal atrial flutter, which has not recurred in the recent past. H/o gout, being followed by Dr Vidal Presbycusis R-sided capal tunnel syndrome for which surgery has been recommended to him by his surgeon but he has not followed through. Mild bilat carotid plaque without any evidence of hemodynamic significance per carotid u/s of 04/20/18 Chronic bilat leg swelling, likely due to venous insufficiency, stable No evidence of any significant obstructive PAD on seg pressures of Sep 2016 PFT from November 2016 showed spirometry WNL and lung volume WNL Scrotal u/s form November 2016 showed mod right hydrocele and a fat-containing left inguinal hernia with mild extension into the scrotum - being managed by Dr. Pearson L hernia repair and L orchiectomy with Imtiaz Jauregui and Michel in early 2016 Plan: Tylenol for musculoskeletal pain. PPI for suspected GERD Ambulate with assistance today Continue current medication regimen D/C IVF Restart home medications (RENATA, statin, insulin) Mild anemia - repeat lab in the morning Clinical Quality Measures AMI/AHF: ASA po Prior to arrival: Yes DELLA NUR MD FACP FACC CCDS Aug 24, 2018 15:39
[2018-08-24] MEDS ORDERED: PANTOPRAZOLE 40 MG (PROTONIX) TAB PO NR (15:45)
[2018-08-24] MEDS ORDERED: ACETAMINOPHEN 325 MG TABLET PO PRN (15:45)
[2018-08-24 16:15] VITALS: BP 117/58
[2018-08-24] MEDS: KCL 10 MEQ TAB (MICRO K) PO SCH (17:24)
[2018-08-24 20:00] VITALS: BP 142/66
[2018-08-24] MEDS ORDERED: ATORVASTATIN 20 MG (LIPITOR) TABLET PO SCH (21:00)
[2018-08-24] MEDS: inSUlin DETERMIR 1 UNIT/0.01 ML (LEVEMIR) CHARGE PER UNIT SQ SCH (21:37)
[2018-08-25 00:30] VITALS: BP 141/66
[2018-08-25 04:00] VITALS: BP 131/61
[2018-08-25 04:29] LABS: HEMOGLOBIN 9.3 G/DL (13.3-17.7); WHITE BLOOD COUNT 4.7 10^3/uL (4.3-11.0)
[2018-08-25 04:50] LABS: BUN/CREATININE RATIO 17; CALCIUM 9.3 MG/DL (8.5-10.1); CARBON DIOXIDE 22 MMOL/L (21-32); CHLORIDE 110 MMOL/L (98-107); CREATININE SERUM 0.88 MG/DL (0.60-1.30); GFR ESTIMATED > 60; GLUCOSE 126 MG/DL (70-105); POTASSIUM 3.8 MMOL/L (3.6-5.0); SODIUM 138 MMOL/L (135-145)
[2018-08-25] MEDS: inSUlin ASPART (NovoLOG) 1 UNIT/0.01 ML (CHARGE PER UNIT) SC SCH ×2 (05:33→11:25)
[2018-08-25] MEDS: KCL 10 MEQ TAB (MICRO K) PO SCH (06:22)
[2018-08-25] MEDS ORDERED: PANTOPRAZOLE 40 MG (PROTONIX) TAB PO SCH (07:00)
[2018-08-25 08:00] VITALS: BP 118/56
[2018-08-25] MEDS: CLOPIDOGREL 75 MG (PLAVIX) TABLET PO SCH (08:08)
[2018-08-25] MEDS: ASPIRIN E.C. 81 MG (ECOTRIN) TAB PO SCH (08:08)
[2018-08-25] MEDS: inSUlin DETERMIR 1 UNIT/0.01 ML (LEVEMIR) CHARGE PER UNIT SQ SCH (08:08)
[2018-08-25] MEDS ORDERED: RAMIPRIL 2.5 MG (ALTACE) CAP PO SCH (09:00)
[2018-08-25] MEDS ORDERED: FUROSEMIDE 40 MG (LASIX) TAB PO SCH (09:00)
[2018-08-25] MEDS ORDERED: FLUoxetine HCL 20 MG (PROzac) CAP PO SCH (09:00)
--- NOTE | 2018-08-25 09:05 | Progress Note-Cardiology ---
Cardiology SOAP Progress Note Subjective: Sitting up in bed. No further c/o CP. No c/o dyspnea, palpitation, syncope or near syncope. No c/o right groin discomfort. Objective: I&O/Vital Signs 08/25/18 08/25/18 08/25/18 08/25/18 04:00 07:00 08:00 08:00 Temp 98.8 96.9 Pulse 84 77 75 Resp 20 24 B/P (MAP) 131/61 (84) 118/56 (76) Pulse Ox 93 91 93 O2 Delivery NIV CPAP NIV CPAP NIV CPAP O2 Flow Rate 2.00 2.00 08/25/18 08/25/18 12:00 13:00 Temp 98.2 Pulse 82 82 Resp 22 B/P (MAP) 118/56 (76) Pulse Ox 94 O2 Delivery Room Air 08/25/18 00:00 Intake Total 2205 ml Balance 2205 ml Weight (Pounds): 257 Weight (Ounces): 3.0 Weight (Calculated Kilograms): 116.383629 Side: right Groin site without hematoma: Yes Condition: DP/PT pulses palpable, extremity w/d/p Bruising: moderated bruising Constitutional: appears stated age, AAO x 3, well-developed, well-nourished Respiratory: chest is bilaterally symmetric, lungs clear to auscultation Cardiovascular: regular rate-rhythm, S1 and S2 Gastrointestional: No tender; soft, round, audible bowel sounds Extremities: no lower extremity edema bilateral Neurologic/Psychiatric: power is 5/5 both on sides Skin: No rash, No ulcerations Results/Procedures: Labs Laboratory Tests 08/24/18 16:08: Glucometer 243H 08/24/18 21:15: Glucometer 191H 08/25/18 04:25: White Blood Count 4.7, Red Blood Count 3.00L, Hemoglobin 9.3L, Hematocrit 28L, Mean Corpuscular Volume 95, Mean Corpuscular Hemoglobin 31, Mean Corpuscular Hemoglobin Concent 33, Red Cell Distribution Width 13.0, Platelet Count 158, Mean Platelet Volume 9.0, Sodium Level 138, Potassium Level 3.8, Chloride Level 110H, Carbon Dioxide Level 22, Anion Gap 6, Blood Urea Nitrogen 15, Creatinine 0.88, Estimat Glomerular Filtration Rate > 60, BUN/Creatinine Ratio 17, Glucose Level 126H, Calcium Level 9.3 08/25/18 11:19: Glucometer 178H A/P: Assessment: Chest pain - improved following cardiac cath with successful intervention of . Some continuing chest discomfort does not appear cardiac and is now resolved CAD - Last cardiac cath of 08-23-[address] Harding: PCI with drug-eluting stent to the first diagonal artery, patent stents in the RCA . Previous history of drug-eluting stenting with Promus 3 x 12 mm stent to the right coronary artery in January 2010. Subsequently, in July 2011 he received Promus 3 x 12 mm to the proximal right coronary and Promus 2.5 x 23 mm stent to the distal right coronary. Last cardiac catheterization was carried on 11/11/16 and it showed mod CAD with patent stents and ischemic cardiomyopathy with LVEF 40-45% (which is and improvement compared a card cath of 2011 that had shown an EF of 25-30%) Echocardiogram of 08-23-[address] Harding showed concentric hypertrophy; LVEF 55- 65%; LA dilated; mild MR; mild to mod AoR and TR Transient slurred speech on 04/17/18: Tiny subdural hemorrhage measuring less than 3 mm thick along the right posterior parietal convexity on CT scan of , stable on CT scan of 04/18/18 S/p surgery for septic arthritis of the R knee on 04/16/18 Chronic systolic CHF, currently clinically compensated Chronic leg weakness, likely d/t spinal stenosis seen on CT of the lumbar spine from March 18, 2018 - management per Dr Vidal Chronic systolic congestive heart failure, improved following upgrade to a biventricular dual-chamber pacemaker defibrillator implantation. The left ventricular lead has been a problem but is functioning normally following most recent adjustment of early January 2013 by his air and water filler, Dr. Hilario. The device is functioning normally per interrogation of 02/03/18 Hypertension, controlled. Hyperlipidemia, being treated with Crestor. This is being followed by Dr Vidal Maturity onset diabetes mellitus, insulin-requiring Obesity with a body mass index of approximately 34 Relative intolerance to RENATA inhibitors and angiotensin receptor blockers because of low blood pressure, but he has lately been able to tolerate a low dose of RENATA inhibitors without problems. Sinus node dysfunction treated with dual-chamber pacemaker implantation. History of hemorrhoidectomy and transurethral resection of the prostate. This is being followed by Dr. Pearson. History of paroxysmal atrial flutter, which has not recurred in the recent past. H/o gout, being followed by Dr Vidal Presbycusis R-sided capal tunnel syndrome for which surgery has been recommended to him by his surgeon but he has not followed through. Mild bilat carotid plaque without any evidence of hemodynamic significance per carotid u/s of 04/20/18 Chronic bilat leg swelling, likely due to venous insufficiency, stable No evidence of any significant obstructive PAD on seg pressures of Sep 2016 PFT from November 2016 showed spirometry WNL and lung volume WNL Scrotal u/s form November 2016 showed mod right hydrocele and a fat-containing left inguinal hernia with mild extension into the scrotum - being managed by Dr. Pearson L hernia repair and L orchiectomy with Imtiaz Jauregui and Michel in early 2016 Plan: OK to discharge home today Continue current medication regimen Out pt f/u in a week CBC as an out pt Physician Assessment Physician Assessment No chest discomfort today. Chronic exertional shortness of breath at its usual baseline. No palp or syncope Lungs: good bilat air entry Cor: reg Ext: no c/c; mod pitting and nonpitting edema of the lets A&R * As documented in our note above that I updated (italics) * Complex management due to multiple comorbidities * Given recent ic bleed on DAPT, it appears best to avoid that. Need to continue Plavix, given fresh cor stent. Will hold off on ASA. Discussed this with him in detail * Close outpt f/u advised Clinical Quality Measures AMI/AHF: ASA po Prior to arrival: Yes JENNI RALPH SERVICE DESK DIRECTOR Aug 25, 2018 09:05 DELLA NUR MD FACP FAC CCDS Aug 25, 2018 15:55
[2018-08-25] MEDS ORDERED: PANT40TA2 PO ×2 (09:35)
[2018-08-25 12:00] VITALS: BP 118/56
--- NOTE | 2018-08-25 13:22 | Discharge Inst-Cardiology ---
Discharge Inst-Cardiac Discharge Medications New Medications: Pantoprazole Sodium (Protonix) 40 Mg Tablet.dr 40 MG PO DAILY, #30 TAB 3 Refills Potassium Chloride (Potassium Chloride) 10 Meq Tablet.er 10 MEQ PO BID, #60 TAB Clopidogrel Bisulfate (Clopidogrel) 75 Mg Tablet 75 MG PO DAILY, #30 TAB 5 Refills Continued Medications: Ascorbic Acid (Vitamin C 500 Mg) 500 Mg Tablet 500 MG PO DAILY, TAB Brimonidine Tartrate (Alphagan P) 10 Ml Drops 1 DROP OU BID one drop both eyes bid Cholecalciferol (Vitamin D3) 1,000 Unit Capsule 1000 UNIT PO DAILY Clindamycin HCl (Clindamycin HCl) 300 Mg Capsule 300 MG PO TID, #21 CAP Fluoxetine HCl (Fluoxetine HCl) 20 Mg Tablet 20 MG PO BID, TAB Furosemide (Furosemide) 40 Mg Tablet 40 MG PO DAILY Hydrocodone/Acetaminophen (Lortab 7.5-325 mg Tablet) 1 Each Tablet 1-2 EACH PO Q4H, #35 TAB Insulin Detemir (Levemir Flextouch) 100 Unit/1 Ml Insuln.pen 30 UNIT SQ BID, EA Nitroglycerin (Nitrostat) 0.4 Mg Subl 0.4 MG SL PRN Pravastatin Sodium (Pravachol) 20 Mg Tablet 20 MG PO HS, TAB Ramipril (Ramipril) 2.5 Mg Capsule 2.5 MG PO DAILY, CAP Discontinued Medications: Naproxen (Naprosyn) 500 Mg Tablet 500 MG PO NEEDED PRN for PAIN-MILD, TAB New, Converted or Re-Newed RX: Transmitted to Pharmacy Patient Instructions Patient Instructions: Please schedule follow up appointment to see Dr. Pineda next week Please have lab: CBC on Thursday, Aug 28 STOP ASPIRIN JENNI RALPH Aug 25, 2018 13:22
--- OUTSIDE RECORDS SUMMARY | 2018-08-26 14:31 | XMS REPORT | Continuity of Care Document ---
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 DIS NEC 08/20/2011 Ot 428.0 CONGESTIVE HEART FAILURE NOS 07/13/2012 Ot 272.4 HYPERLIPIDEMIA NEC/NOS 07/13/2012 Ot 278.00 OBESITY, NOS 07/13/2012 Ot 401.9 HYPERTENSION NOS 07/13/2012 Ot 414.01 CORONARY ATHEROSCLEROSIS OF [place] CORON 07/13/2012 Ot 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 [...] 09/14/2012 Ot 787.91 DIARRHEA 03/28/2014 MARI BRADY SHOE STITCHER Ot 716.90 ARTHROPATHY NOS-UNSPEC 03/28/2014 MARI BRADY SHOE STITCHER Ot 729.5 PAIN IN LIMB 03/28/2014 MARI BRADY SHOE STITCHER Ot 816.00 FX PHALANX, HAND NOS-CL 03/28/2014 MARI BRADY SHOE STITCHER Ot E888.9 FALL NOS 03/28/2014 MARI BRADY SHOE STITCHER Ot V45.01 CARDIAC PACEMAKER IN SITU 03/31/2014 [...] NI DPM, LARRY Q Ot 729.81 05/23/2015 IN DPM, LARRY Q Ot 733.90 05/30/2015 NI [...] NEC/NOS 05/21/2016 Ot 414.01 CORONARY ATHEROSCLEROSIS OF [place] CORON 05/21/2016 Ot V58.69 OTH MED,LT, CURRENT USE 05/21/2016 Ot 272.4 HYPERLIPIDEMIA NEC/NOS 05/21/2016 Ot 414.01 CORONARY ATHEROSCLEROSIS OF [place] CORON 05/21/2016 Ot V58.69 OTH MED,LT, CURRENT [...] CCDS Ot I25.10 ATHSCL HEART DISEASE OF [place] CORONARY 11/11/2016 BOOM RITTER FACC, DELLA FACP [...] FACC, ALI FACP CCDS Ot Z79.899 OTHER BUSINESS BANKING SALES ASSISTANT (CURRENT) DRUG THERAPY 11/11/2016 BOOM RITTER FACC, ALI FACP CCDS Ot Z95.5 PRESENCE OF CORONARY ANGIOPLASTY IMPLANT 11/11/2016 BOOM RITTER FACC, ALI FACP CCDS Ot Z95.810 PRESENCE OF AUTOMATIC (IMPLANTABLE) CARD 11/18/2016 BOOM RITTER FACC, ALI FACP CCDS Ot E78.5 HYPERLIPIDEMIA, UNSPECIFIED 11/18/2016 BOOM RITTER FACC, ALI FACP CCDS Ot I25.10 ATHSCL HEART DISEASE OF [place] CORONARY 11/18/2016 BOOM RITTER FACC, ALI FACP [...] CCDS Ot I25.10 ATHSCL HEART DISEASE OF [place] CORONARY 11/28/2016 BOOM RITTER FACC, DELLA FACP CCDS Ot I25.5 ISCHEMIC CARDIOMYOPATHY 12/02/2016 BOOM RITTER FACC, ALI FACP CCDS Ot E66.9 OBESITY, UNSPECIFIED 12/02/2016 BOOM RITTER FACC, ALI FACP CCDS Ot E78.5 HYPERLIPIDEMIA, UNSPECIFIED 12/02/2016 BOOM RITTER FACC, ALI FACP CCDS Ot I10 ESSENTIAL (PRIMARY) HYPERTENSION 12/02/2016 BOOM RITTER FACC, ALI FACP CCDS Ot I25.10 ATHSCL HEART DISEASE OF [place] CORONARY 12/02/2016 BOOM RITTER FACC, ALI FACP [...] MD, FACC FACP CCDS Ot Z79.899 OTHER NURSING HOME (CURRENT) DRUG THERAPY 12/02/2016 DELLA NUR MD, [...] CCDS Ot I25.10 ATHSCL HEART DISEASE OF [place] CORONARY 12/04/2016 BOOM RITTER FACC, DELLA FACP [...] MD, FACC FACP CCDS Ot Z79.899 OTHER BUSINESS BANKING SALES ASSISTANT (CURRENT) DRUG THERAPY 12/04/2016 BOOM HAYDEN, ALI [...] CCDS Ot I25.10 ATHSCL HEART DISEASE OF [place] CORONARY 12/16/2016 BOOM RITTER FACC, ALI FACP [...] MD, Ot I25.10 ATHSCL HEART DISEASE OF [place] CORONARY 03/27/2017 KATHRINE SMITH MD, Ot I48.91 UNSPECIFIED ATRIAL FIBRILLATION 03/27/2017 KATHRINE SMITH MD, Ot I50.22 CHRONIC SYSTOLIC (CONGESTIVE) HEART FAIL 03/27/2017 KATHRINE SMITH MD, Ot K40.90 UNIL INGUINAL HERNIA, W/O OBST OR GANGR, 03/27/2017 KATHRINE SMITH MD, Ot N40.0 BENIGN PROSTATIC HYPERPLASIA WITHOUT LOW 03/27/2017 KATHRINE SMITH MD, Ot N45.3 EPIDIDYMO-ORCHITIS 03/27/2017 KATHRINE SMITH MD, Ot Z79.4 BUSINESS BANKING SALES ASSISTANT (CURRENT) USE OF INSULIN 03/27/2017 KATHRINE SMITH [...] MD, Ot I25.10 ATHSCL HEART DISEASE OF [place] CORONARY 03/30/2017 KATHRINE SMITH MD, Ot I48.91 UNSPECIFIED ATRIAL FIBRILLATION 03/30/2017 KATHRINE SMITH MD, Ot I50.22 CHRONIC SYSTOLIC (CONGESTIVE) HEART FAIL 03/30/2017 KATHRINE SMITH MD, Ot K40.90 UNIL INGUINAL HERNIA, W/O OBST OR GANGR, 03/30/2017 KATHRINE SMITH MD, Ot N40.0 BENIGN PROSTATIC HYPERPLASIA WITHOUT LOW 03/30/2017 KATHRINE SMITH MD, Ot N45.3 EPIDIDYMO-ORCHITIS 03/30/2017 KATHRINE SMITH MD, Ot Z79.4 NURSING HOME (CURRENT) USE OF INSULIN 03/30/2017 KATHRINE SMITH [...] MD, Ot I25.10 ATHSCL HEART DISEASE OF [place] CORONARY 04/02/2017 KATHRINE SMITH MD, Ot I48.91 UNSPECIFIED ATRIAL FIBRILLATION 04/02/2017 KATHRINE SMITH MD, Ot I50.22 CHRONIC SYSTOLIC (CONGESTIVE) HEART FAIL 04/02/2017 KATHRINE SMITH MD, Ot K40.90 UNIL INGUINAL HERNIA, W/O OBST OR GANGR, 04/02/2017 KATHRINE SMITH MD, Ot N40.0 BENIGN PROSTATIC HYPERPLASIA WITHOUT LOW 04/02/2017 KATHRINE SMITH MD, Ot N45.3 EPIDIDYMO-ORCHITIS 04/02/2017 KATHRINE SMITH MD, Ot Z79.4 BUSINESS BANKING SALES ASSISTANT (CURRENT) USE OF INSULIN 04/02/2017 KATHRINE SMITH [...] MD, Ot I25.10 ATHSCL HEART DISEASE OF [place] CORONARY 04/04/2017 KATHRINE SMITH MD, Ot I48.91 UNSPECIFIED ATRIAL FIBRILLATION 04/04/2017 KATHRINE SMITH MD, Ot I50.22 CHRONIC SYSTOLIC (CONGESTIVE) HEART FAIL 04/04/2017 KATHRINE SMITH MD, Ot K40.90 UNIL INGUINAL HERNIA, W/O OBST OR GANGR, 04/04/2017 KATHRINE SMITH MD, Ot N40.0 BENIGN PROSTATIC HYPERPLASIA WITHOUT LOW 04/04/2017 KATHRINE SMITH MD, Ot N45.3 EPIDIDYMO-ORCHITIS 04/04/2017 KATHRINE SMITH MD, Ot Z79.4 BUSINESS BANKING SALES ASSISTANT (CURRENT) USE OF INSULIN 04/04/2017 KATHRINE SMITH [...] MD, Ot I25.10 ATHSCL HEART DISEASE OF [place] CORONARY 04/06/2017 KATHRINE SMITH MD, Ot I48.91 UNSPECIFIED ATRIAL FIBRILLATION 04/06/2017 KATHRINE SMITH MD, Ot I50.22 CHRONIC SYSTOLIC (CONGESTIVE) HEART FAIL 04/06/2017 KATHRINE SMITH MD, Ot K40.90 UNIL INGUINAL HERNIA, W/O OBST OR GANGR, 04/06/2017 KATHRINE SMITH MD, Ot N40.0 BENIGN PROSTATIC HYPERPLASIA WITHOUT LOW 04/06/2017 KATHRINE SMITH MD, Ot N45.3 EPIDIDYMO-ORCHITIS 04/06/2017 KATHRINE SMITH MD, Ot Z79.4 BUSINESS BANKING SALES ASSISTANT (CURRENT) USE OF INSULIN 04/06/2017 KATHRINE SMITH [...] MD, Ot I25.10 ATHSCL HEART DISEASE OF [place] CORONARY 05/07/2017 KATHRINE SMITH MD, Ot I48.91 UNSPECIFIED ATRIAL FIBRILLATION 05/07/2017 KATHRINE SMITH MD, Ot I50.22 CHRONIC SYSTOLIC (CONGESTIVE) HEART FAIL 05/07/2017 KATHRINE SMITH MD, Ot K40.90 UNIL INGUINAL HERNIA, W/O OBST OR GANGR, 05/07/2017 KATHRINE SMITH MD, Ot N40.0 BENIGN PROSTATIC HYPERPLASIA WITHOUT LOW 05/07/2017 KATHRINE SMITH MD, Ot N45.3 EPIDIDYMO-ORCHITIS 05/07/2017 KATHRINE SMITH MD, Ot Z79.4 BUSINESS BANKING SALES ASSISTANT (CURRENT) USE OF INSULIN 05/07/2017 KATHRINE SMITH MD, Ot Z87.891 PERSONAL HISTORY OF NICOTINE DEPENDENCE 05/07/2017 KATHRINE SIMTH MD, Ot Z95.0 PRESENCE OF CARDIAC PACEMAKER [...] MD, Ot I25.10 ATHSCL HEART DISEASE OF [place] CORONARY 07/03/2017 KATHRINE SMITH MD, Ot I48.91 UNSPECIFIED ATRIAL FIBRILLATION 07/03/2017 KATHRINE SMITH MD, Ot I50.22 CHRONIC SYSTOLIC (CONGESTIVE) HEART FAIL 07/03/2017 KATHRINE SMITH MD, Ot K40.90 UNIL INGUINAL HERNIA, W/O OBST OR GANGR, 07/03/2017 KATHRINE SMITH MD, Ot N40.0 BENIGN PROSTATIC HYPERPLASIA WITHOUT LOW 07/03/2017 KATHRINE SMITH MD, Ot N45.3 EPIDIDYMO-ORCHITIS 07/03/2017 KATHRINE SMITH MD, Ot Z79.4 BUSINESS BANKING SALES ASSISTANT (CURRENT) USE OF INSULIN 07/03/2017 KATHRINE SMITH [...] CCDS Ot I25.10 ATHSCL HEART DISEASE OF [place] CORONARY 07/10/2017 BOOM RITTER FACC, ALI FACP [...] CCDS Ot I25.10 ATHSCL HEART DISEASE OF [place] CORONARY 12/10/2017 BOOM RITTER FACC, DELLA FACP CCDS Ot I25.5 ISCHEMIC CARDIOMYOPATHY 12/10/2017 BOOM RITTER FACC, DELLA FACP CCDS Ot E11.9 TYPE 2 DIABETES MELLITUS WITHOUT COMPLIC 12/10/2017 BOOM RITTER FACC, DELLA FACP CCDS Ot E78.4 OTHER HYPERLIPIDEMIA 12/10/2017 BOOM RITTER FACC, DELLA FACP CCDS Ot I10 ESSENTIAL (PRIMARY) HYPERTENSION 12/10/2017 BOOM RITTER FACC, ALI FACP CCDS Ot I25.10 ATHSCL HEART DISEASE OF [place] CORONARY 12/10/2017 BOOM RITTER FACC, ALI FACP [...] CCDS Ot I25.10 ATHSCL HEART DISEASE OF [place] CORONARY 12/29/2017 BOOM RITTER FACC, ALI FACP [...] CCDS Ot I25.10 ATHSCL HEART DISEASE OF [place] CORONARY 01/12/2018 BOOM RITTER FACC, ALI FACP [...] CCDS Ot I25.10 ATHSCL HEART DISEASE OF [place] CORONARY 01/28/2018 BOOM MD FACC, ALI FACP CCDS Ot I25.5 ISCHEMIC CARDIOMYOPATHY 01/28/2018 BOOM RITTER FACC, ALI FACP CCDS Ot E11.9 TYPE 2 DIABETES MELLITUS WITHOUT COMPLIC 01/28/2018 BOOM RITTER FAC, ALI FACP CCDS Ot E78.4 OTHER HYPERLIPIDEMIA 01/28/2018 BOOM RITTER FACC, ALI FACP CCDS Ot I10 ESSENTIAL (PRIMARY) HYPERTENSION 01/28/2018 BOOM RITTER FAC, ALI FACP CCDS Ot I25.10 ATHSCL HEART DISEASE OF [place] CORONARY 01/28/2018 BOOM RITTER FAC, ALI FACP CCDS Ot I25.5 ISCHEMIC CARDIOMYOPATHY 01/28/2018 BOOM RITTER [facility], ALI FACP CCDS Ot I48.92 UNSPECIFIED ATRIAL FLUTTER 01/28/2018 BOOM RITTER [facility], ALI FACP CCDS Ot I49.5 SICK SINUS SYNDROME 01/28/2018 Ot R06.02 SHORTNESS OF BREATH 01/28/2018 Ot R22.41 LOCALIZED SWELLING, MASS AND LUMP, RIGHT 01/28/2018 FEDERCIO JON MD Ot N43.3 HYDROCELE, UNSPECIFIED 01/28/2018 FEDERICO JON MD Ot N45.1 EPIDIDYMITIS 01/28/2018 ALIYAH RITTER, ROXANNA Oconnell Ot M54.16 RADICULOPATHY, LUMBAR REGION 01/29/2018 BAIJENNI ESCUDERO L RANGE OPERATOR Ot I10 ESSENTIAL (PRIMARY) HYPERTENSION 01/29/2018 BAIMA JENNI L RANGE OPERATOR Ot I25.10 ATHSCL HEART DISEASE OF [place] CORONARY 01/29/2018 BAITAHIRA ESCUDEROHER L RANGE OPERATOR Ot I25.5 ISCHEMIC CARDIOMYOPATHY 01/29/2018 JENNI RALPH L RANGE OPERATOR Ot I48.92 UNSPECIFIED ATRIAL FLUTTER 01/29/2018 JENNI RALPH RANGE OPERATOR Ot R06.09 OTHER FORMS OF DYSPNEA 01/29/2018 [...] CCDS Ot I25.10 ATHSCL HEART DISEASE OF [place] CORONARY 01/29/2018 BOOM RITTER FACC, DELLA FACP CCDS Ot I25.5 ISCHEMIC CARDIOMYOPATHY 01/29/2018 BOOM RITTER FACC, ALI FACP CCDS Ot E11.9 TYPE 2 DIABETES MELLITUS WITHOUT COMPLIC 01/29/2018 BOOM RITTER FACC, ALI FACP CCDS Ot E78.4 OTHER HYPERLIPIDEMIA 01/29/2018 BOOM RITTER FACC, ALI FACP CCDS Ot I10 ESSENTIAL (PRIMARY) HYPERTENSION 01/29/2018 BOOM RITTRE FACC, ALI FACP CCDS Ot I25.10 ATHSCL HEART DISEASE OF [place] CORONARY 01/29/2018 BOOM RITTER FACC, ALI FACP [...] CCDS Ot I25.10 ATHSCL HEART DISEASE OF [place] CORONARY 02/09/2018 BOOM RITTER FACC, ALI FACP CCDS Ot I25.5 ISCHEMIC CARDIOMYOPATHY 02/09/2018 BOOM RITTER FACC, ALI FACP CCDS Ot E11.9 TYPE 2 DIABETES MELLITUS WITHOUT COMPLIC 02/09/2018 BOOM MD FACC, ALI FACP CCDS Ot E78.4 OTHER HYPERLIPIDEMIA 02/09/2018 BOOM RITTER FACC, ALI FACP CCDS Ot I10 ESSENTIAL (PRIMARY) HYPERTENSION 02/09/2018 BOOM RITTER FACC, ALI FACP CCDS Ot I25.10 ATHSCL HEART DISEASE OF [place] CORONARY 02/09/2018 BOOM RITTER FACC, ALI FACP [...] Philip Ot N45.1 EPIDIDYMITIS 02/09/2018 JENNI RALPH RANGE OPERATOR Ot I10 ESSENTIAL (PRIMARY) HYPERTENSION 02/09/2018 JENNI RALPH L RANGE OPERATOR Ot I25.10 ATHSCL HEART DISEASE OF [place] CORONARY 02/09/2018 JENNI RALPH RANGE OPERATOR Ot I25.5 ISCHEMIC CARDIOMYOPATHY 02/09/2018 JENNI RALPH RANGE OPERATOR Ot I48.92 UNSPECIFIED ATRIAL FLUTTER 02/09/2018 JENNI RALPH RANGE OPERATOR Ot R06.09 OTHER FORMS OF DYSPNEA 2018 [...] DO Ot M54.16 RADICULOPATHY, LUMBAR REGION 03/19/2018 OJE MORSE DO Ot 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, LUMBAR REGION 03/19/2018 HEARNDON DO, JOE L Ot M47.26 OTHER SPONDYLOSIS WITH RADICULOPATHY, RUFINA 03/23/2018 BAIJENNI ESCUDERO L RANGE OPERATOR Ot I10 ESSENTIAL (PRIMARY) HYPERTENSION 03/23/2018 BAIMA JENNI L RANGE OPERATOR Ot I25.10 ATHSCL HEART DISEASE OF [place] CORONARY 03/23/2018 BAIMA JENNI L RANGE OPERATOR Ot I25.5 ISCHEMIC CARDIOMYOPATHY 03/23/2018 BAIMA, JENNI L RANGE OPERATOR Ot I48.92 UNSPECIFIED ATRIAL FLUTTER 03/23/2018 BAIMA JENNI L RANGE OPERATOR Ot R06.09 OTHER FORMS OF DYSPNEA 03/30/2018 MINI BUSTAMANTE, JOE L Ot 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, LUMBAR REGION 03/30/2018 MINI DO, JOE Perez Ot M47.26 OTHER SPONDYLOSIS WITH RADICULOPATHY, RUFINA 04/01/2018 MORALESKENA JENNI L RANGE OPERATOR Ot I10 ESSENTIAL (PRIMARY) HYPERTENSION 04/01/2018 MORALESKENA JENNI L RANGE OPERATOR Ot I25.10 ATHSCL HEART DISEASE OF [place] CORONARY 04/01/2018 MORALESMA JENNI L RANGE OPERATOR Ot I25.5 ISCHEMIC CARDIOMYOPATHY 04/01/2018 BAIMA JENNI L RANGE OPERATOR Ot I48.92 UNSPECIFIED ATRIAL FLUTTER 04/01/2018 MORALESKENA JENNI L RANGE OPERATOR Ot R06.09 OTHER FORMS OF DYSPNEA 04/06/2018 [...] CCDS Ot I25.10 ATHSCL HEART DISEASE OF [place] CORONARY 04/06/2018 BOOM RITTER FACC, ALI FACP [...] M54.16 RADICULOPATHY, LUMBAR REGION 04/15/2018 JENNI RALPH RANGE OPERATOR Ot I10 ESSENTIAL (PRIMARY) HYPERTENSION 04/15/2018 JENNI RALPH RANGE OPERATOR Ot I25.10 ATHSCL HEART DISEASE OF [place] CORONARY 04/15/2018 JENNI RALPH RANGE OPERATOR Ot I25.5 ISCHEMIC CARDIOMYOPATHY 04/15/2018 JENNI RALPH RANGE OPERATOR Ot I48.92 UNSPECIFIED ATRIAL FLUTTER 04/15/2018 JENNI RALPH RANGE OPERATOR Ot R06.09 OTHER FORMS OF DYSPNEA 04/15/2018 [...] CCDS Ot I25.10 ATHSCL HEART DISEASE OF [place] CORONARY 04/15/2018 BOOM RITTER FACC, DELLA FACP [...] MD, Ot I25.10 ATHSCL HEART DISEASE OF [place] CORONARY 04/19/2018 MANDEEP FRIEDMAN MD, Ot I25.5 [...] ADULT 04/19/2018 MANDEEP FRIEDMAN MD Ot Z79.4 BUSINESS BANKING SALES ASSISTANT (CURRENT) USE OF INSULIN 04/19/2018 MANDEEP FRIEDMAN MD Ot Z79.82 BUSINESS BANKING SALES ASSISTANT (CURRENT) USE OF ASPIRIN 04/19/2018 MANDEEP FRIEDMAN MD, Ot Z79.899 OTHER NURSING HOME (CURRENT) DRUG THERAPY 04/19/2018 MANDEEP FRIEDMAN MD, [...] MD, Ot I25.10 ATHSCL HEART DISEASE OF [place] CORONARY 04/23/2018 MANDEEP FRIEDMAN MD, Ot I25.5 [...] ADULT 04/23/2018 MANDEEP FRIEDMAN MD, Ot Z79.4 BUSINESS BANKING SALES ASSISTANT (CURRENT) USE OF INSULIN 04/23/2018 MANDEEP FRIEDMAN MD, Ot Z79.82 NURSING HOME (CURRENT) USE OF ASPIRIN 04/23/2018 MANDEEP FRIEDMAN MD, Ot Z79.899 OTHER BUSINESS BANKING SALES ASSISTANT (CURRENT) DRUG THERAPY 04/23/2018 MANDEEP FRIEDMAN MD, [...] MD, Ot I25.10 ATHSCL HEART DISEASE OF [place] CORONARY 04/27/2018 MANDEEP FRIEDMAN MD, Ot I25.5 [...] ADULT 04/27/2018 MANDEEP FRIEDMAN MD, Ot Z79.4 NURSING HOME (CURRENT) USE OF INSULIN 04/27/2018 MANDEEP FRIEDMAN MD Ot Z79.82 NURSING HOME (CURRENT) USE OF ASPIRIN 04/27/2018 MANDEEP FRIEDMAN MD Ot Z79.899 OTHER NURSING HOME (CURRENT) DRUG THERAPY 04/27/2018 MANDEEP FRIEDMAN MD [...] CONSTIPATION, UNSPECIFIED 05/09/2018 BERNOT, EDWIN Ot Z79.4 BUSINESS BANKING SALES ASSISTANT (CURRENT) USE OF INSULIN 05/09/2018 BERNOT, EDWIN [...] CONSTIPATION, UNSPECIFIED 05/11/2018 BERNOT, EDWIN Ot Z79.4 NURSING HOME (CURRENT) USE OF INSULIN 05/11/2018 BERNOT, EDWIN Ot Z87.891 PERSONAL HISTORY OF NICOTINE DEPENDENCE 05/11/2018 BERNOT, EDWIN Ot Z88.0 ALLERGY STATUS TO PENICILLIN 05/11/2018 BERNOT, EDWIN Ot Z95.5 PRESENCE OF CORONARY ANGIOPLASTY IMPLANT 08/12/2018 JOE MORSE DO Ot M54.16 RADICULOPATHY, LUMBAR REGION Procedures Code Description Performed By Performed On 60.29 01/27/2011 [id number] DRAINAGE OF RIGHT KNEE JOINT, PERCUTANEO 04/16/2018 [id number] EXCISION OF RIGHT KNEE JOINT, PERC ENDO [...] CLDY NRG Body fluid leukocytes count (number/volume) 25628 /uL NRG Body fluid erythrocytes count (number/volume) [...] CLDY NRG Body fluid leukocytes count (number/volume) 10232 /uL NRG Body fluid erythrocytes count (number/volume) 92025 /uL NRG Manual body fluid polymorphonuclear cells/100 [...] Bacteria identification in isolate by anaerobe culture [facility] Gram stain microscopy - 04/16/18 14:11 GRAM STAIN RESULT NUMEROUS WBC'S, NO BACTERIA OBSERVED NR Bacteria identification in wound by culture - 04/16/18 14:11 Bacteria identification in wound by culture [facility] Capillary blood glucose measurement by glucometer [...] i.cardiac measurement (mass/volume) < ng/ mL <0.30 Capillary blood glucose measurement by glucometer (mass/volume) - 08/23/18 20: 57 Capillary blood glucose measurement by glucometer (mass/volume) 226 mg/dL 70-110 Automated blood complete blood count (hemogram) panel - 08/24/18 04:45 Blood leukocytes automated count (number/volume) 5.8 10*3/uL 4.3-11.0 Blood erythrocytes automated count (number/volume) 3.24 10*6/uL 4.35-5.85 Venous blood hemoglobin measurement (mass/volume) 10.2 g/dL 13.3-17.7 Blood hematocrit (volume fraction) 31 % 40-54 Automated erythrocyte mean corpuscular volume 94 [foz_us] 80-99 Automated erythrocyte mean corpuscular hemoglobin (mass per erythrocyte) 31 pg 25-34 Automated erythrocyte mean corpuscular hemoglobin concentration measurement ( mass/volume) 33 g/dL 32-36 Automated erythrocyte distribution width ratio 13.3 % 10.0-14.5 Automated blood platelet count (count/volume) 171 10*3/uL 130-400 Automated blood platelet mean volume measurement 9.1 [foz_us] 7.4-10.4 Whole blood basic metabolic panel - 08/24/18 04:45 Serum or plasma sodium measurement (moles/volume) 136 mmol/L 135-145 Serum or plasma potassium measurement (moles/volume) 4.0 mmol/L 3.6-5.0 Serum or plasma chloride measurement (moles/volume) 110 mmol/L 98-107 Carbon dioxide 19 mmol/L 21-32 Serum or plasma anion gap determination (moles/volume) 7 mmol/L 5-14 Serum or plasma urea nitrogen measurement (mass/volume) 16 mg/dL 7-18 Serum or plasma creatinine measurement (mass/volume) 0.89 mg/dL 0.60-1.30 Serum or plasma urea nitrogen/creatinine mass ratio 18 NRG Serum or plasma creatinine measurement with calculation of estimated glomerular filtration rate > NRG Serum or plasma glucose measurement (mass/volume) 182 mg/dL 70-105 Serum or plasma calcium measurement (mass/volume) 9.2 mg/dL 8.5-10.1 Lipid 1996 panel - 08/24/18 04:45 Serum or plasma triglyceride measurement (mass/volume) 98 mg/dL <150 Serum or plasma cholesterol measurement (mass/volume) 109 mg/dL < 200 Serum or plasma cholesterol in HDL measurement (mass/volume) 30 mg/ dL 40-60 Cholesterol in LDL [mass/volume] in serum or plasma by direct assay 65 mg/dL 1-129 Serum or plasma cholesterol in VLDL measurement (mass/volume) 20 mg/ dL 5-40 Capillary blood glucose measurement by glucometer (mass/volume) - 08/24/18 11: 27 Capillary blood glucose measurement by glucometer (mass/volume) 233 mg/dL 70-110 Capillary blood glucose measurement by glucometer (mass/volume) - 08/24/18 16: 08 Capillary blood glucose measurement by glucometer (mass/volume) 243 mg/dL 70-110 Capillary blood glucose measurement by glucometer (mass/volume) - 08/24/18 21: 15 Capillary blood glucose measurement by glucometer (mass/volume) 191 mg/dL 70-110 Automated blood complete blood count (hemogram) panel - 08/25/18 04:25 Blood leukocytes automated count (number/volume) 4.7 10*3/uL 4.3-11.0 Blood erythrocytes automated count (number/volume) 3.00 10*6/uL 4.35-5.85 Venous blood hemoglobin measurement (mass/volume) 9.3 g/dL 13.3-17.7 Blood hematocrit (volume fraction) 28 % 40-54 Automated erythrocyte mean corpuscular volume 95 [foz_us] 80-99 Automated erythrocyte mean corpuscular hemoglobin (mass per erythrocyte) 31 pg 25-34 Automated erythrocyte mean corpuscular hemoglobin concentration measurement ( mass/volume) 33 g/dL 32-36 Automated erythrocyte distribution width ratio 13.0 % 10.0-14.5 Automated blood platelet count (count/volume) 158 10*3/uL 130-400 Automated blood platelet mean volume measurement 9.0 [foz_us] 7.4-10.4 Whole blood basic metabolic panel - 08/25/18 04:25 Serum or plasma sodium measurement (moles/volume) 138 mmol/L 135-145 Serum or plasma potassium measurement (moles/volume) 3.8 mmol/L 3.6-5.0 Serum or plasma chloride measurement (moles/volume) 110 mmol/L 98-107 Carbon dioxide 22 mmol/L 21-32 Serum or plasma anion gap determination (moles/volume) 6 mmol/L 5-14 Serum or plasma urea nitrogen measurement (mass/volume) 15 mg/dL 7-18 Serum or plasma creatinine measurement (mass/volume) 0.88 mg/dL 0.60-1.30 Serum or plasma urea nitrogen/creatinine mass ratio 17 NRG Serum or plasma creatinine measurement with calculation of estimated glomerular filtration rate > NRG Serum or plasma glucose measurement (mass/volume) 126 mg/dL 70-105 Serum or plasma calcium measurement (mass/volume) 9.3 mg/dL 8.5-10.1 Capillary blood glucose measurement by glucometer (mass/volume) - 08/25/18 11: 19 Capillary blood glucose measurement by glucometer (mass/volume) 178 mg/dL 70-110 Encounters ACCT No. Visit Date/Time Discharge Status Pt. Type Provider Facility Loc./Unit Complaint [id number] 08/24/2018 10:32:00 08/25/2018 16:25:00 DIS Inpatient SURJIT RITTER, RENE Munroe [facility] 4TH CHEST PAIN;CAD [id number] 05/09/2018 14:16:00 05/09/2018 16:42:00 DIS Emergency EDWIN MADRID [facility] ER CONSTIPATION [id number] 04/16/2018 13:27:00 04/19/2018 12:35:00 DIS Inpatient MANDEEP FRIEDMAN MD [facility] 4TH KNEE CLEAN OUT [id number] 04/08/2018 14:11:00 04/08/2018 23:59:59 CLS Outpatient MARYERICA BUSTAMANTE JOE Perez [facility] CARD LUMBAR RADICULOPATHY M54.16 [id number] 03/18/2018 10:32:00 03/18/2018 23:59:59 CLS Outpatient MINI BUSTAMANTE JOE Perez [facility] RAD LUMBAR RADICULOPATHY [id number] 03/08/2018 14:04:00 03/08/2018 23:59:59 CLS Outpatient BOOM RITTER FACC, DELLA BENAVIDES CCDS [facility] PULM R06.02 SOB [id number] 2018 13:56:00 2018 15:21:00 DIS Outpatient JOE MORSE DO [facility] CARD M54.16 LUMBAR RADICULOPATHY [id number] 01/06/2018 10:52:00 02/02/2018 11:02:00 DIS Outpatient ROXANNA LY MD [facility] REHAB R LUMBAR RADICULOPATHY [id number] 01/27/2018 13:28:00 01/27/2018 23:59:59 CLS Outpatient JENNI RALPH [facility] CARD R06.09 SPIVEY [id number] 03/26/2017 08:46:00 03/27/2017 13:45:00 DIS Outpatient KATHRINE SMITH MD [facility] SDC LEFT INGUINAL HERNIA [id number] 03/20/2017 05:43:00 03/20/2017 10:30:00 DIS Outpatient KATHRINE SMITH MD [facility] PREOP LEFT INGUINAL HERNIA [id number] 02/25/2017 14:15:00 03/03/2017 13:55:00 DIS Outpatient ALEXANDRA SHAH DO [facility] REHAB ASH HIP PAIN; LOW BACK PAIN [id number] 12/10/2016 13:59:00 12/10/2016 23:59:59 CLS Outpatient FEDERICO JON MD [facility] RAD BILAT HYDROCELES [id number] 12/01/2016 13:54:00 12/01/2016 23:59:59 CLS Outpatient BOOM RITTER FACC, DELLA FACP CCDS [facility] RT CAD,HTN,HLP [id number] 11/18/2016 10:16:00 11/18/2016 23:59:59 CLS Outpatient BOOM RITTER FACMeño, ALI FACP CCDS [facility] LAB I25.5,E78.5, I25.10 [id number] 11/11/2016 06:57:00 11/11/2016 14:15:00 DIS Outpatient BOOM RITTER FACC, DELLA FACP CCDS [facility] CATH CAD,SOB, ANGINA,DM [id number] 10/21/2016 11:12:00 10/21/2016 23:59:59 CLS Outpatient BOOM RITTER FACC, DELLA FACP CCDS [facility] RAD RIGHT LEG CLAUDICATION [id number] 11/23/2015 10:23:00 11/23/2015 13:45:00 DIS Outpatient ROXANNA LY MD [facility] LOWER GI BLEED [id number] 11/21/2015 05:37:00 11/21/2015 23:59:59 CLS Outpatient ROXANNA LY MD [facility] PREOP LOWER GI BLEED [id number] 05/02/2015 16:10:00 05/02/2015 23:59:59 CLS Outpatient NI DPM, LARRY Q [facility] RAD SWELLING ,OSTEOLYLITIS, LESION TO LT 2ND [id number] 09/20/2014 11:02:00 09/20/2014 16:20:00 DIS Outpatient TERELL DHALIWAL MD [facility] SKIN LESIONS [id number] 09/15/2014 09:40:00 09/15/2014 23:59:59 CLS Outpatient TERELL DHALIWAL MD [facility] PREOP SKIN LESIONS [id number] 03/31/2014 08:49:00 03/31/2014 10:43:00 DIS Emergency RENE EDDY MD [facility] ER FALL/RIGHT FOOT PAIN [id number] 03/28/2014 19:36:00 03/28/2014 20:10:00 DIS Emergency MARI BRADY APRN [facility] ER R HAND PAIN [id number] 03/16/2013 15:55:00 03/16/2013 23:59:59 CLS Outpatient BOOM RITTER FACC, DELLA BENAVIDES CCDS [facility] LAB HYPERTENSION [id number] 11/25/2016 09:31:00 Document Registration [id number] 09/15/2012 00:00:00 Document Registration [id number] 08/26/2012 18:17:00 Document Registration [id number] 07/26/2012 09:56:00 Document Registration [id number] 07/13/2012 05:33:00 Document Registration [id number] 07/12/2012 08:53:00 Document Registration [id number] 06/16/2012 09:56:00 Document Registration [id number] 05/13/2012 15:59:00 Document Registration [id number] 05/10/2012 08:49:00 Document Registration [id number] 05/10/2012 08:43:00 Document Registration [id number] 11/07/2011 09:14:00 Document Registration [id number] 08/19/2011 05:33:00 Document Registration [id number] 08/18/2011 08:00:00 Document Registration [id number] 01/31/2011 08:59:00 Document Registration [id number] 01/27/2011 06:35:00 Document Registration [id number] 01/24/2011 11:35:00 Document Registration [id number] 01/17/2011 22:42:00 Document Registration [id number] 01/15/2011 17:20:00 Document Registration [id number] 01/09/2011 05:56:00 Document Registration [id number] 01/07/2011 13:59:00 Document Registration [id number] 05/02/2015 16:11:35 ACT Document Registration [id number] 06/23/2017 09:11:00 06/23/2017 23:59:00 DIS Outpatient RACHEL OWEN
== END 2018-08-25 16:25 | disposition home or self-care (01) | DRG 247 ==
LOC: EDUNIT# 09:56 → ER 09:57 → CATH 12:44 → 4TH 12:44 → UNDOADMOB 12:44 → 4TH 12:44 → OBSVTOIN 08-24 10:32 → INTOOBSV 08-24 10:32 → UNDODISIN 08-25 16:25 → CATH 08-25 16:25 → 4TH 08-25 16:25
PROVIDERS: ADMIT Internal Medicine; ATTEND Internal Medicine
PROC: 027034Z Dilation of Coronary Artery, One Artery with Drug-eluting Intraluminal Device, Percutaneous Approach (ICD-10-PCS; principal; 2018-08-23)
PROC: 4A023N7 Measurement of Cardiac Sampling and Pressure, Left Heart, Percutaneous Approach (ICD-10-PCS; 2018-08-23)
PROC: B2111ZZ Fluoroscopy of Multiple Coronary Arteries using Low Osmolar Contrast (ICD-10-PCS; 2018-08-23)
PROC: B3101ZZ Fluoroscopy of Thoracic Aorta using Low Osmolar Contrast (ICD-10-PCS; 2018-08-23)
DX: I25.10 Atherosclerotic heart disease of native coronary artery without angina pectoris (principal); I08.3 Combined rheumatic disorders of mitral, aortic and tricuspid valves; I50.22 Chronic systolic (congestive) heart failure; T82.855A Stenosis of coronary artery stent, initial encounter; I24.9 Acute ischemic heart disease, unspecified; M48.061 Spinal stenosis, lumbar region without neurogenic claudication; I11.0 Hypertensive heart disease with heart failure; E78.5 Hyperlipidemia, unspecified; E11.9 Type 2 diabetes mellitus without complications; E66.9 Obesity, unspecified; I48.0 Paroxysmal atrial fibrillation; M10.9 Gout, unspecified; H91.10 Presbycusis, unspecified ear; G56.01 Carpal tunnel syndrome, right upper limb; I65.23 Occlusion and stenosis of bilateral carotid arteries; D64.9 Anemia, unspecified; I25.5 Ischemic cardiomyopathy; R60.0 Localized edema; I87.2 Venous insufficiency (chronic) (peripheral); Z87.891 Personal history of nicotine dependence; Z79.899 Other long term (current) drug therapy; Z86.73 Personal history of transient ischemic attack (TIA), and cerebral infarction without residual deficits; Z79.4 Long term (current) use of insulin; Z68.34 Body mass index [BMI] 34.0-34.9, adult; Z95.0 Presence of cardiac pacemaker; Z95.5 Presence of coronary angioplasty implant and graft
CPT/HCPCS: 36415; 71045; 71275; 76705; 80048; 80053; 80061; 82962; 83690; 83735; 83874; 83880; 84484; 85025; 85027; 85347; 85379; 85610; 85730; 93005; 93041; 93306; 93458; 93567; 96374

== ENCOUNTER → 2018-08-30 | Outpatient (CLI) | payer MEDICARE, OTHER ==
[~2018-08-30] MED LIST changes: +ASPI-983 PO; +CLOP75TA28 PO; +PANT40TA2 PO; +POTA10TA10 PO
[2018-08-30 15:53] LABS: HEMOGLOBIN 11.1 G/DL (13.3-17.7); MEAN PLATELET VOLUME 8.5 FL (7.4-10.4); RED BLOOD COUNT 3.49 10^6/uL (4.35-5.85); RED CELL DISTRIBUTION WIDTH 13.9 % (10.0-14.5); WHITE BLOOD COUNT 4.7 10^3/uL (4.3-11.0)
== END ==
LOC: LAB 15:38
PROVIDERS: ATTEND Nurse Practitioner Family
DX: D64.9 Anemia, unspecified (principal)
CPT/HCPCS: 36415; 85027

== ENCOUNTER → 2019-01-05 | Outpatient (CLI) | payer MEDICARE, OTHER ==
[2019-01-05 10:07] LABS: BUN/CREATININE RATIO 16; CALCIUM 9.7 MG/DL (8.5-10.1); CARBON DIOXIDE 26 MMOL/L (21-32); CHLORIDE 105 MMOL/L (98-107); CREATININE SERUM 1.02 MG/DL (0.60-1.30); GFR ESTIMATED > 60; GLUCOSE 146 MG/DL (70-105); POTASSIUM 4.4 MMOL/L (3.6-5.0); SODIUM 137 MMOL/L (135-145)
== END ==
LOC: LAB 09:38
PROVIDERS: ATTEND Nurse Practitioner Family
DX: I25.10 Atherosclerotic heart disease of native coronary artery without angina pectoris (principal); I11.0 Hypertensive heart disease with heart failure; I50.22 Chronic systolic (congestive) heart failure; I49.5 Sick sinus syndrome; E78.5 Hyperlipidemia, unspecified
CPT/HCPCS: 36415; 80048; 83735

== ENCOUNTER 2019-01-14 15:30 | Emergency (ER) | payer MEDICARE, OTHER ==
[~2019-01-14] VITALS: Ht 180.3 cm; Wt 108.9 kg
--- NOTE | 2019-01-14 15:41 | ED Chest Pain ---
General Stated Complaint: FALL Source: patient Exam Limitations: no limitations History of Present Illness Date Seen by Provider: Jan 14, 2019 Time Seen by Provider: 15:39 Initial Comments The patient is a near 89-year-old white male who presents with complaints of left chest pain. He reports that he fell early in the week and apparently landed on his life alert box. He has had continued pain in the area of the left lower chest just medial to the anterior axillary line. This seems to hurt more when he takes a deep breath. Timing/Duration: 6-7 days Severity/Quality: mild, moderate Radiation: no radiation Prior CP/Workup: no prior chest pain Allergies and Home Medications Allergies Coded Allergies: Penicillins (Verified Allergy, Mild, 11/23/15) Home Medications Ascorbic Acid 500 Mg Tablet, 500 MG PO DAILY, (Reported) Brimonidine Tartrate 10 Ml Drops, 1 DROP OU BID, (Reported) one drop both eyes bid Cholecalciferol 1,000 Unit Capsule, 1,000 UNIT PO DAILY, (Reported) Clindamycin HCl 300 Mg Capsule, 300 MG PO TID Prescribed by: ALEX JACK on 04/19/18 1039 Clopidogrel Bisulfate 75 Mg Tablet, 75 MG PO DAILY Prescribed by: JENNI RALPH on 08/24/18 08 Fluoxetine HCl 20 Mg Tablet, 20 MG PO BID, (Reported) Furosemide 40 Mg Tablet, 40 MG PO DAILY, (Reported) Hydrocodone/Acetaminophen 1 Each Tablet, 1-2 EACH PO Q4H Prescribed by: KATHRINE SMITH on 03/26/17 1441 Insulin Detemir 100 Unit/1 Ml Insuln.pen, 30 UNIT SQ BID, (Reported) Nitroglycerin 0.4 Mg Subl, 0.4 MG SL PRN, (Reported) Pantoprazole Sodium 40 Mg Tablet.dr, 40 MG PO DAILY Prescribed by: JENNI RALPH on 08/25/18 0935 Potassium Chloride 10 Meq Tablet.er, 10 MEQ PO BID Prescribed by: JENNI RALPH on 08/24/18 0859 Pravastatin Sodium 20 Mg Tablet, 20 MG PO HS, (Reported) Ramipril 2.5 Mg Capsule, 2.5 MG PO DAILY, (Reported) Patient Home Medication List Home Medication List Reviewed: Yes Review of Systems Review of Systems Constitutional: see HPI EENTM: No Symptoms Reported Respiratory: No Symptoms Reported Cardiovascular: No Symptoms Reported, Other (pacemaker) Gastrointestinal: No Symptoms Reported Genitourinary: No Symptoms Reported Musculoskeletal: no symptoms reported Skin: no symptoms reported Past Cdvbaey-Cndnwg-Jwgipl Hx Patient Social History Former Smoker, Quit: Apr 16, 1971 2nd Hand Smoke Exposure: No Recent Foreign Travel: No Contact w/Someone Who Travel: No Recent Hopitalizations: No Immunizations Up To Date Tetanus Booster (TDap): Unknown Date of Pneumonia Vaccine: Jul 26, 2015 Date of Influenza Vaccine: Jul 26, 2015 Seasonal Allergies Seasonal Allergies: No Past Medical History Surgeries: Yes (hernia repair, TURP, GROIN RUPTURE REPAIR, EAR LESION REMOVAL, ) Coronary Stent, Defibrillator, Vascular Surgery Respiratory: Yes Sleep Apnea Currently Using CPAP: Yes Cardiac: Yes ([employer]) Atrial Fibrillation, Cardiomyopathy, Coronary Artery Disease, Hypertension Neurological: Yes Neuropathy Reproductive Disorders: No Sexually Transmitted Disease: No Genitourinary: Yes (incontinence) Renal Failure Gastrointestinal: Yes Gastroesophageal Reflux Musculoskeletal: Yes Arthritis, Gout Endocrine: Yes Diabetes, Insulin dep HEENT: No Hearing Impairment: Bilateral Hearing Aide Cancer: No Psychosocial: No Integumentary: No Blood Disorders: No Family Medical History Diabetes Physical Exam Vital Signs Vital Signs - First Documented 01/14/19 15:30 Temp 97.5 Pulse 75 Resp 18 B/P (MAP) 151/78 (102) Pulse Ox 94 O2 Delivery Room Air Capillary Refill : Height, Weight, BMI Height: 5'11.00" Weight: 257lbs. 3.0oz. [id number]; 35.9 BMI Method:Stated General Appearance: Mild Distress HEENT: PERRL/EOMI, TMs Normal, Normal ENT Inspection, Pharynx Normal Neck: Full Range of Motion Respiratory: Other (no bruising is evident. There is some tenderness at the level of the nipple and at the anterior axillary line) Cardiovascular: Regular Rate, Rhythm Gastrointestinal: Normal Bowel Sounds, No Organomegaly, No Pulsatile Mass, Non Tender Extremity: Normal Capillary Refill, Normal Inspection, Normal Range of Motion, Non Tender, No Calf Tenderness, No Pedal Edema Neurologic/Psychiatric: Alert, Oriented x3, No Motor/Sensory Deficits, Normal Mood/Affect Skin: Normal Color, Warm/Dry Lymphatic: No Adenopathy Progress/Results/Core Measures Results/Orders Lab Results Laboratory Tests Test 01/14/19 15:45 Range/Units White Blood Count 5.4 4.3-11.0 10^3/uL Red Blood Count 4.27 L 4.35-5.85 10^6/uL Hemoglobin 13.4 13.3-17.7 G/DL Hematocrit 40 40-54 % Mean Corpuscular Volume 95 80-99 FL Mean Corpuscular Hemoglobin 31 25-34 PG Mean Corpuscular Hemoglobin Concent 33 32-36 G/DL Red Cell Distribution Width 14.1 10.0-14.5 % Platelet Count 163 130-400 10^3/uL Mean Platelet Volume 9.1 7.4-10.4 FL Neutrophils (%) (Auto) 72 42-75 % Lymphocytes (%) (Auto) 18 12-44 % Monocytes (%) (Auto) 9 0-12 % Eosinophils (%) (Auto) 2 0-10 % Basophils (%) (Auto) 0 0-10 % Neutrophils # (Auto) 3.9 1.8-7.8 X 10^3 Lymphocytes # (Auto) 1.0 1.0-4.0 X 10^3 Monocytes # (Auto) 0.5 0.0-1.0 X 10^3 Eosinophils # (Auto) 0.1 0.0-0.3 10^3/uL Basophils # (Auto) 0.0 0.0-0.1 10^3/uL Sodium Level 138 135-145 MMOL/L Potassium Level 4.4 3.6-5.0 MMOL/L Chloride Level 106 98-107 MMOL/L Carbon Dioxide Level 25 21-32 MMOL/L Anion Gap 7 5-14 MMOL/L Blood Urea Nitrogen 15 7-18 MG/DL Creatinine 1.05 0.60-1.30 MG/DL Estimat Glomerular Filtration Rate > 60 BUN/Creatinine Ratio 14 Glucose Level 152 H 70-105 MG/DL Calcium Level 9.7 8.5-10.1 MG/DL Corrected Calcium 9.9 8.5-10.1 MG/DL Total Bilirubin 0.4 0.1-1.0 MG/DL Aspartate Amino Transf (AST/SGOT) 17 5-34 U/L Alanine Aminotransferase (ALT/SGPT) 15 0-55 U/L Alkaline Phosphatase 74 40-136 U/L Total Protein 6.0 L 6.4-8.2 GM/DL Albumin 3.8 3.2-4.5 GM/DL My Orders Orders - ODGERS,RENE K MD Cbc With Automated Diff (01/14/19 15:38) Comprehensive Metabolic Panel (01/14/19 15:38) Chest 1 View, Ap/Pa Only (01/14/19 15:38) Ribs, Left 2-3 Views (01/14/19 15:38) Ekg Tracing (01/14/19 15:42) Vital Signs/I&O 01/14/19 01/14/19 15:30 15:30 Temp 97.5 Pulse 75 Resp 18 B/P (MAP) 151/78 (102) Pulse Ox 94 O2 Delivery Room Air Departure Communication (Admissions) Chest x-ray and rib detail showed no evidence of fracture. Impression Primary Impression: rib contusion Disposition: 01 HOME, SELF-CARE Condition: Stable/Unchanged Departure-Patient Inst. Decision time for Depature: 17:21 Referrals: ROXANNA LY MD (PCP/Family) Primary Care Physician Patient Instructions: Chest Pain That Is Not Caused by the Heart (DC) Add. Discharge Instructions: Expect the pain to resolve over the next few weeks albeit slowly you may use Tylenol and also to try hot or cold packs to see if they aid in the discomfort. RENE EDDY MD Jan 14, 2019 15:41
[2019-01-14 15:54] LABS: BASOPHILS % (AUTO) 0 % (0-10); EOSINOPHILS # (AUTO) 0.1 10^3/uL (0.0-0.3); EOSINOPHILS % (AUTO) 2 % (0-10); HEMATOCRIT 40 % (40-54); HEMOGLOBIN 13.4 G/DL (13.3-17.7); LYMPHOCYTES % (AUTO) 18 % (12-44); MEAN CORPUSCULAR HEMOGLOBIN 31 PG (25-34); MEAN CORPUSCULAR HGB CONC 33 G/DL (32-36); MEAN CORPUSCULAR VOLUME 95 FL (80-99); MEAN PLATELET VOLUME 9.1 FL (7.4-10.4); MONOCYTES # (AUTO) 0.5 X 10^3 (0.0-1.0); MONOCYTES % (AUTO) 9 % (0-12); NEUTROPHILS # (AUTO) 3.9 X 10^3 (1.8-7.8); NEUTROPHILS % (AUTO) 72 % (42-75); PLATELET COUNT 163 10^3/uL (130-400); RED CELL DISTRIBUTION WIDTH 14.1 % (10.0-14.5); WHITE BLOOD COUNT 5.4 10^3/uL (4.3-11.0)
--- NOTE | 2019-01-14 16:03 | NUR ---
SEE LIST FOR CURRENT MEDS
[2019-01-14 16:11] LABS: ALANINE AMINOTRANSFERASE 15 U/L (0-55); ALBUMIN 3.8 GM/DL (3.2-4.5); ALKALINE PHOSPHATASE 74 U/L (40-136); BILIRUBIN,TOTAL 0.4 MG/DL (0.1-1.0); BUN/CREATININE RATIO 14; CALCIUM 9.7 MG/DL (8.5-10.1); CARBON DIOXIDE 25 MMOL/L (21-32); CHLORIDE 106 MMOL/L (98-107); CREATININE SERUM 1.05 MG/DL (0.60-1.30); GFR ESTIMATED > 60; GLUCOSE 152 MG/DL (70-105); POTASSIUM 4.4 MMOL/L (3.6-5.0); SODIUM 138 MMOL/L (135-145)
--- NOTE | 2019-01-14 16:41 | Diagnostic Imaging Report ---
INDICATION: Fall with left rib pain. AP view of the chest is obtained with comparison made to study of 08/23/2018. FINDINGS: There is suboptimal inspiration. There is mild cardiomegaly. There is mild bilateral basilar atelectasis. There is mild pleural thickening on the lateral left chest wall. This could be related to pleural reaction from rib fracture. No pneumothorax is seen. IMPRESSION: 1. Basilar atelectasis is seen bilaterally which may be due to hypoventilation. 2. Left pleural thickening may indicate pleural reaction from rib fracture. Dictated by: Dictated on workstation # [id number]
--- NOTE | 2019-01-14 17:04 | Diagnostic Imaging Report ---
INDICATION: Left-sided rib pain post fall. TECHNIQUE: Three views left ribs at 04:20 p.m. CORRELATION STUDY: Chest 01/14/2019, 08/23/2018. FINDINGS: Limited incomplete visualization of the ribs. Given limitations, no acute displaced left-sided rib fracture. Left-sided pacemaker and multiple leads. Cardiac enlargement. IMPRESSION: 1. Limited but negative-appearing left rib radiograph. Dictated by: Dictated on workstation # [id number]
[2019-01-14 17:30] VITALS: BP 151/78
== END 2019-01-14 17:30 | disposition home or self-care (01) ==
LOC: EDUNIT# 15:30 → ER 15:32
DX: S80.02XA Contusion of left knee, initial encounter (principal); G47.30 Sleep apnea, unspecified; I48.91 Unspecified atrial fibrillation; I42.9 Cardiomyopathy, unspecified; I25.10 Atherosclerotic heart disease of native coronary artery without angina pectoris; K21.9 Gastro-esophageal reflux disease without esophagitis; M10.9 Gout, unspecified; I10 Essential (primary) hypertension; E11.40 Type 2 diabetes mellitus with diabetic neuropathy, unspecified; Z88.0 Allergy status to penicillin; Z87.448 Personal history of other diseases of urinary system; Z79.4 Long term (current) use of insulin; Z87.891 Personal history of nicotine dependence; Z98.890 Other specified postprocedural states; Z90.79 Acquired absence of other genital organ(s); Z95.5 Presence of coronary angioplasty implant and graft; Z95.810 Presence of automatic (implantable) cardiac defibrillator; W19.XXXA Unspecified fall, initial encounter
CPT/HCPCS: 36415; 71045; 71100; 80053; 85025; 93005